=== PATIENT | male | born 1975 | race Caucasian/White ===

== ENCOUNTER 2017-01-05 22:31 | Inpatient (IN) | payer OTHER ==
[2017-01-05] MEDS ORDERED: SODIUM CHLORIDE 0.9% 1,000 ML IV STA (22:59)
[2017-01-05] MEDS ORDERED: MORPHINE SULFATE 4 MG/ML SYRINGE IVP STA (23:39)
[2017-01-05] MEDS ORDERED: ONDANSETRON 4 MG/2 ML VIAL IVP STA (23:39)
[2017-01-05 23:47] LABS: ALT 15 U/L (21-72); AST 15 U/L (17-59); Alkaline Phosphatase 55 U/L (38-126); Amylase 48 U/L (30-110); Anion Gap 8 mmol/L; Blood Urea Nitrogen 20 mg/dL (9-20); Calcium 8.5 mg/dL (8.4-10.2); Carbon Dioxide 24 mmol/L (22-30); Chloride 103 mmol/L (98-107); Glucose 106 mg/dL (74-99); Non-African American GFR(MDRD) >60 (>60 ml/min/1.73 sqM); Potassium 4.5 mmol/L (3.5-5.1); Sodium 135 mmol/L (137-145); Total Bilirubin 0.3 mg/dL (0.2-1.3); Total Protein 6.1 g/dL (6.3-8.2)
[2017-01-05 23:57] LABS: Anisocytosis Moderate; Basophils # (A) 0.1 k/uL (0-0.2); Basophils % (A) 1 %; CH 20.7; CHCM 27.5; Eosinophils # (A) 0.3 k/uL (0-0.7); Eosinophils % (A) 4 %; HCT 27.6 % (39.0-53.0); HDW 3.13; HGB 7.5 gm/dL (13.0-17.5); Hypochromasia Marked; Luc # (Auto) 0.31; Luc % (Auto) 4; Lymphocytes # (A) 0.9 k/uL (1.0-4.8); Lymphocytes % (A) 11 %; MCH 20.5 pg (25.0-35.0); MCHC 27.1 g/dL (31.0-37.0); MCV 75.8 fL (80.0-100.0); Mean Platelet Volume 6.1; Microcytosis Moderate; Monocytes # (A) 0.7 k/uL (0-1.0); Monocytes % (A) 8 %; Neutrophils % (A) 73 %; RBC 3.65 m/uL (4.30-5.90); RDW 20.5 % (11.5-15.5); WBC 8.1 k/uL (3.8-10.6); WBC (Perox) 8.64
[2017-01-05] MEDS ORDERED: HYDROmorphone 1 MG/ML 1 ML SYRINGE IVP STA (23:57)
--- NOTE | 2017-01-06 00:12 | XR ---
EXAM: XR Abdomen, 2 views CLINICAL HISTORY: Abdominal pain. TECHNIQUE: Frontal view of the abdomen and pelvis and upright view of the abdomen. COMPARISON: Radiograph dated 03/18/16. FINDINGS: Visualized lungs: Suspect mild opacity at the left lung base which partially obscures the left hemidiaphragm, possibly atelectasis. Free air: No evidence of free intraperitoneal air. Gastrointestinal tract: Prominent stool in the ascending colon. Mildly prominent air-filled bowel in the upper abdomen, possibly transverse colon although not definitive. Otherwise no significantly dilated bowel loops to suggest small bowel obstruction. Bones/joints: Unremarkable. IMPRESSION: 1. Prominent stool in the ascending colon. Correlate for constipation. 2. Mildly prominent air-filled bowel in the upper abdomen, possibly transverse colon. No significantly dilated small bowel loops to suggest small bowel obstruction. 3. No evidence of free air. 4. Subtle opacity at the left lung base which obscures the diaphragm, possibly atelectasis. Correlate clinically and may obtain CXR to further assess if clinically indicated.
--- NOTE | 2017-01-06 00:49 | ED ---
Abdominal Pain HPI - General Chief Complaint: Abdominal Pain Stated Complaint: All over pain Time Seen by Provider: 01/05/17 22:59 Source: patient, RN notes reviewed Mode of arrival: ambulatory Limitations: no limitations - History of Present Illness Initial Comments: 41-year-old male presents emergency Department chief complaint abdominal pain. Patient states that he has also colitis and states that he has a exacerbations in which she gets severe abdominal pain seemed to spread throughout his body. Patient states that he is also out of his pain medication. Patient states that his GI physician is out of [facility]. Patient has an appointment next month. Patient states he gets once monthly Remicade injections. Patient states that he is nauseated no vomiting denies fever or chills. Patient does have a history of on and off bleeding which is not usual. He denies any large clots at this time. Patient denies any dysuria or hematuria. - Related Data Home Medications Medication Instructions Recorded Confirmed azaTHIOprine [Azathioprine] 100 mg PO BID 11/25/15 01/05/17 inFLIXimab [Remicade] 1 dose IVPB Q28D 12/24/15 01/05/17 Iron Infusion 1 dose IVPB Q7D 01/05/17 01/05/17 [place] (Unknown Dose) 1 tab PO TID PRN 01/05/17 01/05/17 Allergies Allergy/AdvReac Type Severity Reaction Status Date / Time No Known Allergies Allergy Verified 01/05/17 22:55 Review of Systems ROS Statement: Those systems with pertinent positive or pertinent negative responses have been documented in the HPI. ROS Other: All systems not noted in ROS Statement are negative. Past Medical History Additional Past Medical History / Comment(s): colitis, GI bleed History of Any Multi-Drug Resistant Organisms: C-DIFF, MRSA Past Surgical History: No Surgical Hx Reported Past Anesthesia/Blood Transfusion Reactions: No Reported Reaction Past Psychological History: Anxiety Smoking Status: Current some day smoker Past Alcohol Use History: None Reported Past Drug Use History: None Reported - Past Family History Mother Family Medical History: COPD, Diabetes Mellitus, Thyroid Disorder Additional Family Medical History / Comment(s): Schizophrenia Father History Unknown: Yes General Exam Limitations: no limitations General appearance: alert, in no apparent distress Respiratory exam: Present: normal lung sounds bilaterally. Absent: respiratory distress, wheezes, rales, rhonchi, stridor Cardiovascular Exam: Present: regular rate, normal rhythm, normal heart sounds. Absent: systolic murmur, diastolic murmur, rubs, gallop, clicks GI/Abdominal exam: Present: soft, tenderness (Mild to moderate diffuse), normal bowel sounds. Absent: distended, guarding, rebound, rigid Back exam: Absent: CVA tenderness (R), CVA tenderness (L) Skin exam: Present: warm, dry, intact, normal color. Absent: rash Course Vital Signs 01/05/17 01/06/17 22:49 00:00 Temperature 98.8 F Pulse Rate 107 H 87 Respiratory 20 18 Rate Blood Pressure 108/66 117/71 O2 Sat by Pulse 98 98 Oximetry Medical Decision Making - Lab Data Result diagrams: 01/05/17 23:21 01/05/17 23:21 Lab Results 01/05/17 01/05/17 01/06/17 Range/Units 23:21 23:21 00:00 WBC 8.1 (3.8-10.6) k/uL RBC 3.65 L (4.30-5.90) m/uL Hgb 7.5 L (13.0-17.5) gm/dL Hct 27.6 L (39.0-53.0) % MCV 75.8 L (80.0-100.0) fL MCH 20.5 L (25.0-35.0) pg MCHC 27.1 L (31.0-37.0) g/dL RDW 20.5 H (11.5-15.5) % Plt Count 842 H* (150-450) k/uL Neutrophils % 73 % Lymphocytes % 11 % Monocytes % 8 % Eosinophils % 4 % Basophils % 1 % Neutrophils # 6.0 (1.3-7.7) k/uL Lymphocytes # 0.9 L (1.0-4.8) k/uL Monocytes # 0.7 (0-1.0) k/uL Eosinophils # 0.3 (0-0.7) k/uL Basophils # 0.1 (0-0.2) k/uL Hypochromasia Marked Anisocytosis Moderate Microcytosis Moderate Sodium 135 L (137-145) mmol/L Potassium 4.5 (3.5-5.1) mmol/L Chloride 103 (98-107) mmol/L Carbon Dioxide 24 (22-30) mmol/L Anion Gap 8 mmol/L BUN 20 (9-20) mg/dL Creatinine 0.96 (0.66-1.25) mg/dL Est GFR (MDRD) Af Amer >60 (>60 ml/min/1.73 sqM) Est GFR (MDRD) Non-Af >60 (>60 ml/min/1.73 sqM) Glucose 106 H (74-99) mg/dL Calcium 8.5 (8.4-10.2) mg/dL Total Bilirubin 0.3 (0.2-1.3) mg/dL AST 15 L (17-59) U/L ALT 15 L (21-72) U/L Alkaline Phosphatase 55 (38-126) U/L Total Protein 6.1 L (6.3-8.2) g/dL Albumin 3.0 L (3.5-5.0) g/dL Amylase 48 (30-110) U/L Lipase 45 (23-300) U/L Urine Color Light Yellow Urine Appearance Clear (Clear) Urine pH 6.5 (5.0-8.0) Ur Specific [place] 1.010 (1.001-1.035) Urine Protein Negative (Negative) Urine Glucose (UA) Negative (Negative) Urine Ketones Negative (Negative) Urine Blood Negative (Negative) Urine Nitrite Negative (Negative) Urine Bilirubin Negative (Negative) Urine Urobilinogen <2.0 (<2.0) mg/dL Ur Leukocyte Esterase Negative (Negative) Disposition Clinical Impression: Exacerbation of ulcerative colitis, Lower GI bleed, Anemia Disposition: ADMITTED IP TO THIS HOSP Condition: Fair Referrals: Ezequiel Salinas MD [Primary Care Provider] - 1-2 days
[2017-01-06 00:53] LABS: Appearance,Urine Clear (Clear); Bilirubin,Urine Negative (Negative); Glucose,Urine (UA) Negative (Negative); Ketones,Urine Negative (Negative); Leukocyte Esterase,Urine Negative (Negative); Nitrite,Urine Negative (Negative); PH, Urine 6.5 (5.0-8.0); Protein,Urine Negative (Negative); UA Billing (MACRO vs. MICRO) CHEM; Urobilinogen,Urine <2.0 mg/dL (<2.0)
[2017-01-06] MEDS ORDERED: HYDROmorphone 1 MG/ML 1 ML SYRINGE IVP STA (00:53)
[2017-01-06] MEDS ORDERED: ONDANSETRON 4 MG/2 ML VIAL IVP PRN (00:57)
[2017-01-06] MEDS ORDERED: ACETAMINOPHEN TAB 325 MG TAB PO PRN (00:57)
[2017-01-06] MEDS ORDERED: NALOXONE 0.4 MG/ML 1 ML VIAL IV PRN (00:57)
[2017-01-06] MEDS ORDERED: methylPREDNISolone SOD SUCCI 125 MG/2 ML VIAL IV STA (00:59)
[2017-01-06] MEDS: SODIUM CHLORIDE 0.9% 1,000 ML IV SCH ×3 (01:08→21:10)
[2017-01-06] MEDS: HYDROmorphone 1 MG/ML 1 ML SYRINGE IV PRN ×5 (04:06→21:10)
[2017-01-06] MEDS ORDERED: ENOXAPARIN 40 MG/0.4 ML SYRINGE SQ SCH (09:00)
[2017-01-06] MEDS ORDERED: PANTOPRAZOLE 40 MG/10 ML VIAL IV SCH (09:00)
[2017-01-06 09:33] LABS: Anion Gap 9 mmol/L; Blood Urea Nitrogen 14 mg/dL (9-20); Calcium 9.3 mg/dL (8.4-10.2); Carbon Dioxide 24 mmol/L (22-30); Chloride 106 mmol/L (98-107); Glucose 127 mg/dL (74-99); Non-African American GFR(MDRD) >60 (>60 ml/min/1.73 sqM); Potassium 5.2 mmol/L (3.5-5.1); Sodium 139 mmol/L (137-145)
[2017-01-06] MEDS: azaTHIOprine 50 MG TAB PO SCH ×2 (09:46→21:10)
[2017-01-06] MEDS: methylPREDNISolone SOD SUCCI 125 MG/2 ML VIAL IV SCH ×3 (13:07→23:01)
--- NOTE | 2017-01-06 18:47 | PN ---
DATE OF SERVICE: January 06, 2017 REQUESTING PHYSICIAN: Dr. Gomez. REASON FOR CONSULTATION: Exacerbation of ulcerative colitis. HISTORY OF PRESENT ILLNESS: The patient is a 41-year-old white male known to me from his previous hospitalizations. He was diagnosed with ulcerative colitis approximately 9 years ago and follows with Dr. Larson. He was maintained on Remicade for several years and remained in clinical remission; however, in November 2015, he was admitted to the hospital with severe flare-up, was treated with a prolonged course of IV steroids and subsequently followed by Dr. Larson. At one point, he was up at [facility] for refractory ulcerative colitis on biologics. He was seen at [facility] over 6 months ago, at which time his Remicade dose was increased to 10 mg/kg body weight every 4 weeks and Imuran dose was increased 100 mg twice daily, which he has been taking regularly. He was doing reasonably well and has been off the prednisone for about 6 months or so. In the meantime, for the last 2 weeks started having severe abdominal pain associated with diarrhea, bleeding, bowel movements anywhere from 50 to 20 a day; all loose, watery with blood and mucus in the stool. Came into the emergency room and was noted to have hemoglobin of 7.5 g/dL. He denies any fever, chills, night sweats. Reports no nausea or vomiting. PAST MEDICAL HISTORY: Significant for ulcerative colitis diagnosed 10 years ago. Medications at home include: 1. [place]. 2. Remicade 10 mg/kg body weight every 4 weeks. 3. Azathioprine 500 mg twice daily. ALLERGIES: None. SOCIAL HISTORY: No smoking or alcohol use. FAMILY HISTORY: Unremarkable. REVIEW OF SYSTEMS: CARDIOPULMONARY: No chest pain, shortness of breath. GENITOURINARY: No dysuria or hematuria. MUSCULOSKELETAL: Unremarkable. SKIN: Unremarkable. ENDOCRINE: Unremarkable. PSYCHIATRIC: Unremarkable. NEUROLOGY: Unremarkable. ENT/VISION: Unremarkable. CONSTITUTIONAL: No recent ( ). No fever, chills, rigors. On physical examination, blood pressure 109/63, pulse rate 78 and temperature 97. HEENT: Unremarkable. Conjunctivae pink. Sclerae anicteric. Oral cavity, no lesions. NECK: No JVD or lymph node enlargement. CHEST: Clear to auscultation. HEART: Regular rate and rhythm. ABDOMEN: Soft. Bowel wounds are positive. No organomegaly. EXTREMITIES: No pedal edema. SKIN: No rashes. NEURO: Alert and oriented x3. No focal deficits. Labs done at the time of admission to hospital: WBC 8.1, hemoglobin 7.5, platelets 872. Basic metabolic panel is within normal limits. Stool for occult blood is positive. IMPRESSION: This is a patient with long history of ulcerative colitis who has been having severe symptoms for the last 3 years and has been on and off steroid dependent. Presently on Remicade 10 mg/kg body weight every 4 weeks and azathioprine 100 mg twice daily, despite which presents to the hospital with flare-up of ulcerative colitis. Presently having bowel movements anywhere from 15 to 20 a day which are loose, watery in consistency and blood in the stool, all suggestive of exacerbation. Of course, because of his prior history of Clostridium difficile colitis, possibility of superimposed Clostridium difficile colitis also needs to be excluded RECOMMENDATIONS: 1. Obtain C. difficile toxin. 2. Obtain stool for cultures. 3. Start him on IV Solu-Medrol 60 mg every 6 hours. 4. Start him on a clear liquid diet and will continue to follow the patient closely during his hospital stay. Also have requested for C-reactive protein and sed rate tomorrow morning. Thank you for this consultation.
--- NOTE | 2017-01-06 19:26 | HP ---
DATE OF ADMISSION: 01/06/2017 PRESENTING COMPLAINT: Abdominal pain. HISTORY OF PRESENTING COMPLAINT: This is a pleasant 41-year-old patient of Dr. Salinas. Patient was diagnosed with ( ) over [address] Amanda Cassidy. The patient was then seen by Dr. Reyna ). Patient was then referred to [facility] from where he has been getting Remicade. Patient stated that he presents with increasing abdominal pain and multiple stools with some blood in it. Feels weak, tired, rundown. The patient has not been employed anymore. Denies any fever. REVIEW OF SYSTEMS: CONSTITUTIONAL: Weak, tired. HEENT: None. RESPIRATORY: None. CARDIOVASCULAR: None. GASTROINTESTINAL: As above. GENITOURINARY: None. MUSCULOSKELETAL: Aches and pains in the joints. Dermatological: None. HEMATOLOGIC: None. LYMPHATICS: None. PSYCHIATRY: None. NEUROLOGICAL: Patient actually was walking up and down the hallway when I came to see the patient. PAST MEDICAL HISTORY: Ulcerative colitis. PAST SURGICAL HISTORY: None. ALLERGIES: None. FAMILY HISTORY: Reviewed, noncontributory to presentation. SOCIAL HISTORY: Does not smoke or drink alcohol. Lives with girlfriend. Did do [place] previously. HOME MEDICATIONS: 1. [place] t.i.d. p.r.n. 2. Remicade IV piggyback every 28 days. 3. ( ) 100 mg p.o. b.i.d. ALLERGIES: None. On examination, temperature 97.2, pulse 93, respiration 18, blood pressure 194/62, pulse ox 98% on room air. GENERAL APPEARANCE: Lying in bed. Appears rather comfortable. EYES: Pupils equal. Conjunctivae normal. HEENT: Oral cavity normal. NECK: JVD not raised. Mass not palpable. RESPIRATORY: Effort normal. Lungs are clear. CARDIOVASCULAR: First and second sounds normal. No edema. ABDOMEN: Soft, minimal tenderness. No guarding or rigidity. Liver and spleen not palpable. LYMPHATIC: No lymph nodes palpable in neck and axillae. PSYCHIATRY: Alert and oriented x3. Mood and affect normal. NEUROLOGICAL: Pupils equal. Cranial nerves grossly intact. Power and sensation intact. INVESTIGATIONS: White count 8.1, hemoglobin 10.5, platelets 842. Potassium 4.5. BUN and creatinine are normal. Abdominal x-ray nonspecific. ASSESSMENT: 1. Acute exacerbation of chronic ulcerative colitis in a patient who is on Remicade with increasing frequency in stool, increasing pain. 2. Reactive thrombocytosis. 3. Macrocytic anemia from chronic blood loss and folliculitis. 4. Mild hyponatremia. 5. Hypoalbuminemia probably an acute phase reactant probably mild protein calorie malnutrition. PLAN: Patient is put on IV Solu-Medrol. We will use Venodyne boots for DVT prophylaxis. IV fluids. Dr. Amanda Cassidy was consulted. IV pain medications for now. Diet as per Dr. Amanda Cassidy.
[2017-01-07] MEDS: HYDROmorphone 1 MG/ML 1 ML SYRINGE IV PRN ×7 (00:35→22:39)
[2017-01-07] MEDS: methylPREDNISolone SOD SUCCI 125 MG/2 ML VIAL IV SCH ×2 (06:12→11:33)
[2017-01-07] MEDS: SODIUM CHLORIDE 0.9% 1,000 ML IV SCH ×2 (07:21→17:44)
[2017-01-07] MEDS: azaTHIOprine 50 MG TAB PO SCH ×2 (07:21→20:43)
[2017-01-07 12:08] LABS: Anion Gap 11 mmol/L; Blood Urea Nitrogen 19 mg/dL (9-20); C Reactive Protein 20.2 mg/L (<10.0); Calcium 9.1 mg/dL (8.4-10.2); Carbon Dioxide 21 mmol/L (22-30); Chloride 110 mmol/L (98-107); Glucose 184 mg/dL (74-99); Non-African American GFR(MDRD) >60 (>60 ml/min/1.73 sqM); Potassium 4.9 mmol/L (3.5-5.1); Sodium 142 mmol/L (137-145)
[2017-01-07] MEDS: methylPREDNISolone SOD SUCCI 40 MG/ML 1 ML VIAL IV SCH ×2 (15:46→23:14)
[2017-01-07] MEDS: MELATONIN 5 MG TABLET PO SCH (20:43)
[2017-01-08] MEDS: HYDROmorphone 1 MG/ML 1 ML SYRINGE IV PRN ×2 (03:41→07:45)
[2017-01-08] MEDS: SODIUM CHLORIDE 0.9% 1,000 ML IV SCH ×3 (05:46→23:48)
[2017-01-08] MEDS: methylPREDNISolone SOD SUCCI 40 MG/ML 1 ML VIAL IV SCH ×3 (07:46→23:49)
[2017-01-08] MEDS: azaTHIOprine 50 MG TAB PO SCH ×2 (07:46→20:37)
[2017-01-08 08:33] LABS: Anisocytosis Moderate; Basophils % (A) 0 %; CH 20.7; Eosinophils % (A) 0 %; HCT 27.7 % (39.0-53.0); HDW 2.97; HGB 7.3 gm/dL (13.0-17.5); Hypochromasia Marked; Luc # (Auto) 0.08; Luc % (Auto) 2; Lymphocytes # (A) 0.3 k/uL (1.0-4.8); Lymphocytes % (A) 6 %; MCH 21.1 pg (25.0-35.0); MCHC 26.4 g/dL (31.0-37.0); Mean Platelet Volume 6.6; Microcytosis Slight; Monocytes # (A) 0.2 k/uL (0-1.0); Monocytes % (A) 4 %; Neutrophils # (A) 4.1 k/uL (1.3-7.7); Neutrophils % (A) 88 %; RBC 3.47 m/uL (4.30-5.90); RDW 20.7 % (11.5-15.5); WBC 4.7 k/uL (3.8-10.6); WBC (Perox) 4.91
[2017-01-08 09:07] LABS: Anion Gap 10 mmol/L; Blood Urea Nitrogen 21 mg/dL (9-20); Carbon Dioxide 25 mmol/L (22-30); Chloride 108 mmol/L (98-107); Glucose 118 mg/dL (74-99); Non-African American GFR(MDRD) >60 (>60 ml/min/1.73 sqM); Potassium 4.3 mmol/L (3.5-5.1); Sodium 143 mmol/L (137-145)
--- NOTE | 2017-01-08 11:29 | PN ---
DATE OF SERVICE: 01/07/2017 PRESENTING COMPLAINT: Ulcerative colitis flare-up. INTERVAL HISTORY: This is a patient doing much better. Did tolerate liquid diet, actually wants food. Up and about in the hallway. Has only made 1 or 2 bowel movements, rarely. Doing much better, cheerful, sitting in the next patient's bed chair and talking to him. REVIEW OF SYSTEMS: Done for constitutional, cardiovascular, GI, pulmonary; relevant findings as above. Current medications are reviewed. Current medications are reviewed, that include Solu-Medrol, IV fluids. On examination, temperature 96.7, pulse 86, respirations 20, blood pressure 108/60, pulse ox 97% on room air. GENERAL APPEARANCE: Sitting up, comfortable. EYES: Pupils equal. Conjunctivae normal. NECK: JVD not raised. Mass not palpable. RESPIRATORY: Effort normal. Lungs are clear. CARDIOVASCULAR: First and second sounds normal. No edema. ABDOMEN: Soft, nontender. Liver and spleen not palpable. PSYCHIATRY: Alert and oriented x3. Mood and affect normal. INVESTIGATIONS: ( ) 48, potassium 4.9. BUN and creatinine normal. C. difficile was negative. ASSESSMENT: 1. Acute exacerbation of ulcerative colitis, patient is on Remicade, doing much better. Stool frequency has gone down to about 2 to 3 times in the last 24 hours. No blood reported. 2. Reactive thrombocytosis. 3. Macrocytic anemia from chronic blood loss. 4. Mild hyponatremia. 5. Hypoalbuminemia, probably an acute phase reactant and mild protein calorie malnutrition. PLAN: Will cut back on IV Solu-Medrol to 40 every 12. Diet will be advanced to soft, bland. This patient is doing relatively well. Ambulate.
[2017-01-08] MEDS: HYDROcodone/APAP 5-325MG 1 EACH TAB PO PRN ×2 (12:36→19:31)
--- NOTE | 2017-01-08 17:24 | PN ---
DATE OF SERVICE: 01/08/2017 The patient a 41 -year-old white male admitted to the hospital with exacerbation of ulcerative colitis. He presented with abdominal pain, severe diarrhea. His bowel movements are between ( ) a day with blood and mucus in the stool. He was started on IV Solu-Medrol 60 mg q.6 hours 2 days ago and yesterday was decreased to 40 mg q.8 hours. He is doing better. Still has some bowel movements. Blood has decreased but not resolved. Abdominal pain has improved. On physical examination, appears comfortable in no apparent distress. Vitals as are stable. Blood pressure is 108/60, pulse rate 60 temperature 98.7. HEENT: Unremarkable. Conjunctivae pink. Sclerae anicteric. Oral cavity, no lesions. NECK: No JVD or lymph node enlargement. Chest was clear to auscultation. HEART: Regular rate and rhythm. ABDOMEN: Soft. Bowel are positive. No organomegaly. EXTREMITIES: No pedal edema. SKIN: No rashes. NEURO: He is alert and oriented x3. No focal deficits. Labs from today, WBC 4.7, hemoglobin 7.3, platelets 758. Basic metabolic panel is within normal limits. CRP and sedimentation rate are elevated at 20 and 48 respectively. C. difficile toxin was negative. IMPRESSION: Exacerbation of ulcerative colitis and the patient has been on and off steroids for the last two years. He has been off for the last 6 months and presently on IV Solu-Medrol 40 mg q.6 hours for exacerbation of ulcerative colitis. He is being seen at Gastroenterology at [facility] and presently is on Imuran 100 mg twice daily as well as Remicade infusion at 10 mg/kg body weight every 4 weeks. RECOMMENDATIONS: 1. Continue with IV Solu-Medrol 40 mg q8 today and tomorrow if he is better, we will change it to oral prednisone 40 mg daily to be tapered by 5 mg a week on an outpatient basis. In the meantime, he will continue with Imuran 100 mg twice daily. 2. Continue with Remicade iron infusions every 4 weeks as schedule. 3. He was advised to follow up with his GI at [facility] in 1 to 2 weeks following discharge from the hospital.
[2017-01-08] MEDS: MELATONIN 5 MG TABLET PO SCH (20:37)
[2017-01-09] MEDS: HYDROcodone/APAP 5-325MG 1 EACH TAB PO PRN ×2 (01:33→07:48)
[2017-01-09 07:21] VITALS: BP 116/69; PULSE 57; RESP 14; TEMP 97.2
[2017-01-09 07:47] LABS: Anisocytosis Moderate; Basophils % (A) 0 %; CH 20.9; CHCM 26.8; Eosinophils % (A) 0 %; HDW 3.03; HGB 7.2 gm/dL (13.0-17.5); Hypochromasia Marked; Luc # (Auto) 0.09; Luc % (Auto) 2; Lymphocytes # (A) 0.3 k/uL (1.0-4.8); Lymphocytes % (A) 8 %; MCH 20.9 pg (25.0-35.0); MCHC 26.7 g/dL (31.0-37.0); MCV 78.2 fL (80.0-100.0); Mean Platelet Volume 5.9; Microcytosis Moderate; Monocytes # (A) 0.2 k/uL (0-1.0); Monocytes % (A) 6 %; Neutrophils # (A) 3.1 k/uL (1.3-7.7); Neutrophils % (A) 83 %; RBC 3.45 m/uL (4.30-5.90); RDW 20.7 % (11.5-15.5); WBC 3.7 k/uL (3.8-10.6)
[2017-01-09] MEDS: methylPREDNISolone SOD SUCCI 40 MG/ML 1 ML VIAL IV SCH (07:48)
[2017-01-09] MEDS: azaTHIOprine 50 MG TAB PO SCH (07:48)
[2017-01-09] MEDS: SODIUM CHLORIDE 0.9% 1,000 ML IV SCH (07:49)
[2017-01-09 08:15] LABS: Manual Review Performed
[2017-01-09 08:16] LABS: Ovalocytes Present
--- NOTE | 2017-01-09 09:36 | DS ---
DATE OF ADMISSION: 01/06/2017 DATE OF DISCHARGE: 01/08/2017 FINAL DIAGNOSES: 1. Acute exacerbation of chronic ulcerative colitis in a patient who has been on Remicade. 2. Reactive thrombocytosis. 3. Macrocytic anemia from chronic blood loss. 4. Mild hyponatremia. 5. Hypoalbuminemia probably an acute phase reactant element of protein calorie malnutrition. HOSPITAL COURSE: This is a patient who has been diagnosed with ulcerative colitis about [address] Larson. Has been on Remicade for several years, made in clinical remission. Now is admitted with a flare-up with multiple bowel movements, some blood. Put on a dose of steroids. By the time of discharge doing much better. Up and about, tolerating a diet, up in the hallway. Afebrile, C. diff was negative. In fact, patient is down to only 1 or 2 bowel movements a day. Hemoglobin is stable at 7.3 which was 7.5 when he came in. On examination; Abdomen soft, nontender. Lungs are clear. CONSULTATION: Dr. Amanda Cassidy. DISCHARGE MEDICATIONS: 1. Azathioprine 100 mg p.o. b.i.d. 2. Remicade IV piggyback every 28 days. 3. Iron infusion. 4. Celexa 10 mg a day. 5. [place] 5 one tablet t.i.d. p.r.n. 6. Melatonin 5 mg p.o. q.h.s. 7. Prednisone 60 mg q. daily, continue until followup with GI specialist Dr. Cassidy or his own specialist in [place]. DIET: Soft, bland. Follow up with Dr. Salinas in 1 week; follow up with Dr. Amanda Cassidy as above. Follow up with GI specialist in 1 week.
--- NOTE | 2017-01-09 10:19 | P.PN ---
Subjective Principal diagnosis: Exacerbation ulcerative colitis 41-year-old male with a history of ulcerative colitis admitted with exacerbation ; Remicade anemia and therapy. Scheduled a follow-up [facility] on Sunday. Requesting IV Dilaudid this morning for abdominal pain. 4 bowel movements last night blood tinged. Hemoglobin relatively unchanged from yesterday 7.2. Hemoglobin yesterday 7.3. Afebrile. Objective - Vital Signs Vital signs: Vital Signs Temp 97.2 F L 01/09/17 07:00 Pulse 57 L 01/09/17 07:00 Resp 14 01/09/17 07:00 BP 116/69 01/09/17 07:00 Pulse Ox 100 01/09/17 07:00 Intake & Output 01/08/17 01/09/17 01/09/17 18:59 06:59 18:59 Intake Total 1140 Balance 1140 Intake: Oral 1140 Other: Voiding Method Toilet Toilet Toilet # Voids 2 2 # Bowel Movements 2 - Exam General appearance: The patient is alert, oriented, in no acute distress. HET: Head is normocephalic and atraumatic. Pupils are equal and reactive. Oropharynx is clear without lesions. Neck: Supple without lymphadenopathy. Trachea midline. Heart: S1 S2. Regular rate and rhythm. Lungs: No crackles or wheezes are heard. Abdomen: Soft, very mild diffuse tenderness across mid to lower abdomen, nondistended with bowel sounds. No peritoneal signs. No palpable organomegaly or masses. Extremities: Normal skin color and turgor. No cyanosis, rash, ulceration, clubbing, or edema. Radial and pedal pulses are 2/4 bilaterally. Neurological: No focal deficits. Strength and sensation are grossly intact. - Labs CBC & Chem 7: 01/09/17 06:59 01/08/17 07:48 Labs: Abnormal Lab Results - Last 24 Hours (Table) 01/09/17 Range/Units 06:59 WBC 3.7 L (3.8-10.6) k/uL RBC 3.45 L (4.30-5.90) m/uL Hgb 7.2 L (13.0-17.5) gm/dL Hct 27.0 L (39.0-53.0) % MCV 78.2 L (80.0-100.0) fL MCH 20.9 L (25.0-35.0) pg MCHC 26.7 L (31.0-37.0) g/dL RDW 20.7 H (11.5-15.5) % Plt Count 634 H (150-450) k/uL Lymphocytes # 0.3 L (1.0-4.8) k/uL Assessment and Plan Plan: Impression: 1. Exacerbation of ulcerative colitis. Follow closely by the [facility] presently on Imuran 100 mg twice daily as well as Remicade every 4 weeks. 2. Acute blood loss anemia superimposed on chronic disease anemia. Recommendations: 1. Continue with some genetic supportive treatment. 2. Prednisone 40 mg daily taper by 5 mg a week on an outpatient basis. Follow- up at [facility] on Sunday as advised. Continue Imuran 100 mg twice daily. Assessment and plan of care discussed with Dr. Cassidy.
[2017-01-10] MEDS ORDERED: predniSONE 20 MG TAB PO SCH (09:00)
== END 2017-01-09 13:10 | disposition home or self-care (01) | DRG 386 ==
LOC: EC 22:31 → 4MS4W 01-06 01:17
PROVIDERS: ADMIT Hospitalist; ATTEND Hospitalist
DX: K51.911 Ulcerative colitis, unspecified with rectal bleeding (principal); E87.1 Hypo-osmolality and hyponatremia; E44.1 Mild protein-calorie malnutrition; D62 Acute posthemorrhagic anemia; D50.0 Iron deficiency anemia secondary to blood loss (chronic); D53.9 Nutritional anemia, unspecified; D75.89 Other specified diseases of blood and blood-forming organs; Z86.19 Personal history of other infectious and parasitic diseases; Z79.52 Long term (current) use of systemic steroids; Z79.899 Other long term (current) drug therapy
CPT/HCPCS: 36415; 74000; 80048; 80053; 81003; 82150; 82272; 83690; 85025; 85652; 86140; 86850; 86900; 86901; 87324; 96361; 96374; 96375; 96376; 99285

== ENCOUNTER → 2017-01-26 | Outpatient (CLI) | payer OTHER ==
[2017-01-26 16:10] LABS: Anisocytosis Moderate; Aty Lym Flag Slight; CH 21.9; CHCM 28.3; HCT 31.8 % (39.0-53.0); HDW 3.17; Hypochromasia Marked; MCHC 29.6 g/dL (31.0-37.0); MCV 77.8 fL (80.0-100.0); Mean Platelet Volume 7.5; Microcytosis Moderate; RBC 4.09 m/uL (4.30-5.90); RDW 22.7 % (11.5-15.5); WBC 5.4 k/uL (3.8-10.6)
[2017-01-26 16:35] LABS: HGB 9.4 gm/dL (13.0-17.5)
[2017-01-26 16:57] LABS: C Reactive Protein 14.9 mg/L (<10.0)
[2017-01-26 17:44] LABS: Add Differential Manual Differential
[2017-01-26 17:46] LABS: Manual Review Performed; Nucleated Red Blood Cells 0 /100 WBC (0-0); Ovalocytes Present; Polychromasia Present; Total Cells Counted 100
[2017-01-26 17:47] LABS: Large Platelets Present; Spherocytes Present; Target Cells Present
[2017-01-26 18:04] LABS: Erythrocyte Sedimentation Rate 28 mm/hr (0-15)
== END | disposition home or self-care (01) ==
LOC: LABWHC1 15:52
PROVIDERS: ATTEND Internal Medicine Gastroenterology
DX: D50.9 Iron deficiency anemia, unspecified (principal)
CPT/HCPCS: 36415; 82728; 83540; 83550; 85025; 85652; 86140

== ENCOUNTER 2017-03-25 00:24 | Observation (INO) | payer OTHER ==
[2017-03-25] MEDS ORDERED: SODIUM CHLORIDE 0.9% 1,000 ML IV ONE (00:32)
[2017-03-25] MEDS ORDERED: LORazepam 2 MG/ML SYRINGE IM STA ×2 (00:58→03:23)
[2017-03-25] MEDS ORDERED: HALOPERIDOL LACTATE 5 MG/ML 1 ML VIAL IM STA (00:58)
--- NOTE | 2017-03-25 01:06 | ED ---
General Adult HPI - General Source: patient, EMS, RN notes reviewed Mode of arrival: EMS Limitations: no limitations <Eric Butterfield - Last Filed: 03/25/17 03:31> <Denver Rodriguez - Last Filed: 03/27/17 06:54> - General Chief complaint: Alcohol Stated complaint: ETOH Time Seen by Provider: 03/25/17 00:26 - History of Present Illness Initial comments: This a 42-year-old male presents emergency department via EMS for altered mental status. Patient was found and no street. Intoxicated. He was waving empty bottle of Ambien and waving a later. Patient reportedly did not take the Ambien he states he probably lost it. Patient information is limited this time as he appears to be intoxicated and either alcohol or drugs. Patient denies any illicit drug use. He states he only had 2 drinks tonight. Patient denies a suicidal homicidal thoughts. Patient states that "I was making Magic and changing the universe". Patient is making bizarre and irrational statements. ( Eric Butterfield) - Related Data Home Medications Medication Instructions Recorded Confirmed azaTHIOprine [Azathioprine] 100 mg PO BID 11/25/15 03/25/17 inFLIXimab [Remicade] 1 dose IVPB Q28D 12/24/15 01/05/17 Iron Infusion 1 dose IVPB Q7D 01/05/17 01/05/17 Citalopram Hydrobromide [CeleXA] 10 mg PO DAILY 01/08/17 03/25/17 HYDROcodone/APAP 5-325MG [[place] 1 tab PO TID PRN 01/08/17 03/25/17 5-325] Ondansetron Odt [Zofran ODT] 4 mg PO Q8HR PRN 03/25/17 03/25/17 Tofacitinib Citrate [Xeljanz] 10 mg PO BID 03/25/17 03/25/17 predniSONE 60 mg PO DAILY 03/25/17 03/25/17 Allergies Allergy/AdvReac Type Severity Reaction Status Date / Time No Known Allergies Allergy Verified 03/25/17 10:25 Review of Systems ROS Other: All systems not noted in ROS Statement are negative. <Eric Butterfield - Last Filed: 03/25/17 03:31> ROS Other: All systems not noted in ROS Statement are negative. <Denver Rodriguez - Last Filed: 03/27/17 06:54> ROS Statement: Those systems with pertinent positive or pertinent negative responses have been documented in the HPI. Past Medical History Past Medical History: No Reported History Additional Past Medical History / Comment(s): colitis, GI bleed History of Any Multi-Drug Resistant Organisms: C-DIFF, MRSA Date of last positivie culture/infection: 2015 MDRO Source:: leg wound Past Surgical History: No Surgical Hx Reported Past Anesthesia/Blood Transfusion Reactions: No Reported Reaction Past Psychological History: Anxiety Smoking Status: Never smoker Past Alcohol Use History: None Reported Past Drug Use History: None Reported - Past Family History Mother Family Medical History: COPD, Diabetes Mellitus, Thyroid Disorder Additional Family Medical History / Comment(s): Schizophrenia Father History Unknown: Yes <Eric Butterfield - Last Filed: 03/25/17 03:31> General Exam Limitations: altered mental status General appearance: alert, in no apparent distress Head exam: Present: atraumatic, normocephalic, normal inspection Eye exam: Present: normal appearance, PERRL, EOMI. Absent: scleral icterus, conjunctival injection, periorbital swelling ENT exam: Present: normal exam, normal oropharynx, mucous membranes moist Neck exam: Present: normal inspection. Absent: tenderness, meningismus, lymphadenopathy Respiratory exam: Present: normal lung sounds bilaterally. Absent: respiratory distress, wheezes, rales, rhonchi, stridor Cardiovascular Exam: Present: normal rhythm, tachycardia, normal heart sounds. Absent: systolic murmur, diastolic murmur, rubs, gallop, clicks GI/Abdominal exam: Present: soft, normal bowel sounds. Absent: distended, tenderness, guarding, rebound, rigid Neurological exam: Present: alert, CN II-XII intact, reflexes normal. Absent: oriented X3, motor sensory deficit Skin exam: Present: warm, dry, intact, normal color. Absent: rash <Eric Butterfield - Last Filed: 03/25/17 03:31> EKG Findings - EKG Comments: EKG Findings:: EKG performed at 2:45 sinus tachycardia with a rate of 113 HI interval 124 QRS duration 92 QT/QTC 348/477 <Eric Butterfield - Last Filed: 03/25/17 03:31> Procedures - Restraint - Face to Face Restraint Occurrence 1 Patient's Immediate Situation: Endangers staff safety Patient's Reaction to the Intervention: Uncooperative Patient's Medical & Behavioral Condition: Awake, Alert Need to Continue or Terminate Restraint or Seclusion: Continue Face to Face Eval of Restraint Date: 03/25/17 Face to Face Eval of Restraint Time: 01:19 <Eric Butterfield - Last Filed: 03/25/17 03:31> Medical Decision Making - Lab Data Result diagrams: 03/25/17 02:09 03/25/17 02:09 <Eric Butterfield - Last Filed: 03/25/17 03:31> - Lab Data Result diagrams: 03/25/17 02:09 03/25/17 02:09 <Denver Rodriguez - Last Filed: 03/27/17 06:54> - Medical Decision Making I saw this patient in conjunction with the physician oncology physician assistant. I performed independent history and physical exam. Agree with case management. (Denver Rodriguez) - Lab Data Lab Results 03/25/17 03/25/17 03/25/17 Range/Units 02:09 02:09 02:09 WBC 10.1 (3.8-10.6) k/uL RBC 4.29 L (4.30-5.90) m/uL Hgb 10.0 L (13.0-17.5) gm/dL Hct 34.8 L (39.0-53.0) % MCV 80.9 (80.0-100.0) fL MCH 23.2 L (25.0-35.0) pg MCHC 28.7 L (31.0-37.0) g/dL RDW 21.1 H (11.5-15.5) % Plt Count 430 (150-450) k/uL Neutrophils % 90 % Lymphocytes % 4 % Monocytes % 4 % Eosinophils % 1 % Basophils % 0 % Neutrophils # 9.1 H (1.3-7.7) k/uL Lymphocytes # 0.4 L (1.0-4.8) k/uL Monocytes # 0.4 (0-1.0) k/uL Eosinophils # 0.1 (0-0.7) k/uL Basophils # 0.0 (0-0.2) k/uL Hypochromasia Marked Anisocytosis Moderate Microcytosis Slight Sodium 144 (137-145) mmol/L Potassium 3.8 (3.5-5.1) mmol/L Chloride 114 H (98-107) mmol/L Carbon Dioxide 18 L (22-30) mmol/L Anion Gap 12 mmol/L BUN 23 H (9-20) mg/dL Creatinine 0.80 (0.66-1.25) mg/dL Est GFR (MDRD) Af Amer >60 (>60 ml/min/1.73 sqM) Est GFR (MDRD) Non-Af >60 (>60 ml/min/1.73 sqM) Glucose 102 H (74-99) mg/dL POC Glucose (mg/dL) (75-99) mg/dL POC Glu Absorption And Adsorption Engineer ID Calcium 9.1 (8.4-10.2) mg/dL Total Bilirubin 0.2 (0.2-1.3) mg/dL AST 15 L (17-59) U/L ALT 29 (21-72) U/L Alkaline Phosphatase 57 (38-126) U/L Total Protein 6.3 (6.3-8.2) g/dL Albumin 3.7 (3.5-5.0) g/dL Urine Color Yellow Urine Appearance Clear (Clear) Urine pH 5.5 (5.0-8.0) Ur Specific [place] 1.008 (1.001-1.035) Urine Protein Negative (Negative) Urine Glucose (UA) Negative (Negative) Urine Ketones Negative (Negative) Urine Blood Negative (Negative) Urine Nitrite Negative (Negative) Urine Bilirubin Negative (Negative) Urine Urobilinogen <2.0 (<2.0) mg/dL Ur Leukocyte Esterase Negative (Negative) Urine Opiates Screen Not Detected (NotDetected) Ur Oxycodone Screen Not Detected (NotDetected) Urine Methadone Screen Not Detected (NotDetected) Ur Propoxyphene Screen Not Detected (NotDetected) Ur Barbiturates Screen Not Detected (NotDetected) U Tricyclic Antidepress Not Detected (NotDetected) Ur Phencyclidine Scrn Not Detected (NotDetected) Ur Amphetamines Screen Not Detected (NotDetected) U Methamphetamines Scrn Not Detected (NotDetected) U Benzodiazepines Scrn Not Detected (NotDetected) Urine Cocaine Screen Not Detected (NotDetected) U Marijuana (THC) Screen Not Detected (NotDetected) Serum Alcohol 90 mg/dL 03/25/17 Range/Units 02:48 WBC (3.8-10.6) k/uL RBC (4.30-5.90) m/uL Hgb (13.0-17.5) gm/dL Hct (39.0-53.0) % MCV (80.0-100.0) fL MCH (25.0-35.0) pg MCHC (31.0-37.0) g/dL RDW (11.5-15.5) % Plt Count (150-450) k/uL Neutrophils % % Lymphocytes % % Monocytes % % Eosinophils % % Basophils % % Neutrophils # (1.3-7.7) k/uL Lymphocytes # (1.0-4.8) k/uL Monocytes # (0-1.0) k/uL Eosinophils # (0-0.7) k/uL Basophils # (0-0.2) k/uL Hypochromasia Anisocytosis Microcytosis Sodium (137-145) mmol/L Potassium (3.5-5.1) mmol/L Chloride (98-107) mmol/L Carbon Dioxide (22-30) mmol/L Anion Gap mmol/L BUN (9-20) mg/dL Creatinine (0.66-1.25) mg/dL Est GFR (MDRD) Af Amer (>60 ml/min/1.73 sqM) Est GFR (MDRD) Non-Af (>60 ml/min/1.73 sqM) Glucose (74-99) mg/dL POC Glucose (mg/dL) 103 H (75-99) mg/dL POC Glu Absorption And Adsorption Engineer ID Ankur Bowman Calcium (8.4-10.2) mg/dL Total Bilirubin (0.2-1.3) mg/dL AST (17-59) U/L ALT (21-72) U/L Alkaline Phosphatase (38-126) U/L Total Protein (6.3-8.2) g/dL Albumin (3.5-5.0) g/dL Urine Color Urine Appearance (Clear) Urine pH (5.0-8.0) Ur Specific [place] (1.001-1.035) Urine Protein (Negative) Urine Glucose (UA) (Negative) Urine Ketones (Negative) Urine Blood (Negative) Urine Nitrite (Negative) Urine Bilirubin (Negative) Urine Urobilinogen (<2.0) mg/dL Ur Leukocyte Esterase (Negative) Urine Opiates Screen (NotDetected) Ur Oxycodone Screen (NotDetected) Urine Methadone Screen (NotDetected) Ur Propoxyphene Screen (NotDetected) Ur Barbiturates Screen (NotDetected) U Tricyclic Antidepress (NotDetected) Ur Phencyclidine Scrn (NotDetected) Ur Amphetamines Screen (NotDetected) U Methamphetamines Scrn (NotDetected) U Benzodiazepines Scrn (NotDetected) Urine Cocaine Screen (NotDetected) U Marijuana (THC) Screen (NotDetected) Serum Alcohol mg/dL Disposition <Eric Butterfield - Last Filed: 03/25/17 03:31> <Denver Rodriguez - Last Filed: 03/27/17 06:54> Clinical Impression: Acute delirium Disposition: ADMITTED IP TO THIS HOSP Condition: Stable
[2017-03-25 02:26] LABS: Anisocytosis Moderate; Basophils % (A) 0 %; CH 23.9; CHCM 29.7; Eosinophils # (A) 0.1 k/uL (0-0.7); Eosinophils % (A) 1 %; HCT 34.8 % (39.0-53.0); HDW 3.03; Hypochromasia Marked; Luc # (Auto) 0.14; Luc % (Auto) 1; Lymphocytes # (A) 0.4 k/uL (1.0-4.8); Lymphocytes % (A) 4 %; MCH 23.2 pg (25.0-35.0); MCHC 28.7 g/dL (31.0-37.0); MCV 80.9 fL (80.0-100.0); Mean Platelet Volume 7.4; Microcytosis Slight; Monocytes # (A) 0.4 k/uL (0-1.0); Monocytes % (A) 4 %; Neutrophils # (A) 9.1 k/uL (1.3-7.7); Neutrophils % (A) 90 %; RBC 4.29 m/uL (4.30-5.90); RDW 21.1 % (11.5-15.5); WBC 10.1 k/uL (3.8-10.6); WBC (Perox) 10.68
[2017-03-25 02:30] LABS: Appearance,Urine Clear (Clear); Bilirubin,Urine Negative (Negative); Glucose,Urine (UA) Negative (Negative); Ketones,Urine Negative (Negative); Leukocyte Esterase,Urine Negative (Negative); Nitrite,Urine Negative (Negative); PH, Urine 5.5 (5.0-8.0); Protein,Urine Negative (Negative); Specific Gravity,Urine 1.008 (1.001-1.035); UA Billing (MACRO vs. MICRO) CHEM; Urobilinogen,Urine <2.0 mg/dL (<2.0)
[2017-03-25 02:36] LABS: ALT 29 U/L (21-72); AST 15 U/L (17-59); Alkaline Phosphatase 57 U/L (38-126); Anion Gap 12 mmol/L; Blood Urea Nitrogen 23 mg/dL (9-20); Calcium 9.1 mg/dL (8.4-10.2); Carbon Dioxide 18 mmol/L (22-30); Chloride 114 mmol/L (98-107); Glucose 102 mg/dL (74-99); Non-African American GFR(MDRD) >60 (>60 ml/min/1.73 sqM); Potassium 3.8 mmol/L (3.5-5.1); Sodium 144 mmol/L (137-145); Total Bilirubin 0.2 mg/dL (0.2-1.3); Total Protein 6.3 g/dL (6.3-8.2)
[2017-03-25 02:44] LABS: Alcohol 90 mg/dL
[2017-03-25 02:52] LABS: Glucose,Whole Blood 103 mg/dL (75-99)
--- NOTE | 2017-03-25 04:30 | CT ---
EXAM: CT Head Without Intravenous Contrast CLINICAL HISTORY: Reason: Altered mental status TECHNIQUE: Axial computed tomography images of the head/brain without intravenous contrast. DLP is 1627.40 mGy-cm. This CT exam was performed using one or more of the following dose reduction techniques: automated exposure control, adjustment of the mA and/or kV according to patient size, and/or use of iterative reconstruction technique. COMPARISON: 03/28/16 FINDINGS: Brain: Unremarkable. No hemorrhage. No significant white matter disease. No edema. Ventricles: Unremarkable. No ventriculomegaly. Bones/joints: Unremarkable. No acute fracture. Soft tissues: Unremarkable. Sinuses: Unremarkable as visualized. No acute sinusitis. Mastoid air cells: Unremarkable as visualized. No mastoid effusion. IMPRESSION: Normal head/brain CT.
[2017-03-25] MEDS ORDERED: NALOXONE 0.4 MG/ML 1 ML VIAL IV PRN (07:54)
[2017-03-25] MEDS ORDERED: SODIUM CHLORIDE 0.9% 1,000 ML IV SCH (08:00)
[2017-03-25 09:49] VITALS: RESP 16
[2017-03-25 11:01] VITALS: BMI 26.5
--- NOTE | 2017-03-25 15:56 | P.HPIM ---
History of Present Illness H&P Date: 03/25/17 Chief Complaint: confusion Patient is a 42-year-old male with history of ulcerative colitis, anxiety, and prior GI bleed who presented via EMS with confusion. Per records he was found wandering the streets by police and EMS was called. On my exam patient is lethargic but awakes to physical stimuli. He is alert and oriented 3. He is unsure what happened last evening. He states that he has felt fatigued since they have been changing his medications. He knows that he had a prescription for Ambien. He denies any intent to harm himself or others. He cannot recall the events that led to his hospitalization. He has been having some abdominal cramping which is not unusual for him. He denies any overt diarrhea. He denies any anxiety admits to some depression. In the emergency department he underwent an extensive evaluation. He does not have alcohol intoxication that his labs were otherwise normal. He underwent a head CT that was normal. He is admitted to the observation unit for further monitoring and care. Review of Systems General: no fever/chills, no rigors, no weight loss/weight gain, no change in appetite Eyes: No double vision, no unusual blurry vision, no loss of vision ENT: No rhinorrhea, congestion, no trush Cardiovascular: No chest pain, no palpitations, no syncope, no edema, Noo paroxysmal nocturnal dyspnea, No dizziness Pulmonary: No shortness of breath, no wheezing, no cough, hemoptysis Abdominal: + Abdominal cramping, no constipation, no diarrhea, no vomiting, no nausea, no distention Genitourinary: No dysuria, no urinary frequency, no hematuria, no unusual discharge/odor Neuro: No unusual paresthesias, no unusual paresis/paralysis, no headache Dermatologic: No unusual rashes, no unusual lesions, no unusual changes in nails Endocrinology: No intolerance to heat/cold, no excessive thirst, no unusual fatigue Hematologic: No unusual bruising or bleeding, no unusual cervical lymphadenopathy Psychiatric: No changes in mood or behaviors, insomnia Past Medical History Additional Past Medical History / Comment(s): Ulcerative colitis, anxiety, GI bleed History of Any Multi-Drug Resistant Organisms: C-DIFF, MRSA Date of last positivie culture/infection: 2015 MDRO Source:: leg wound Past Surgical History: No Surgical Hx Reported Past Anesthesia/Blood Transfusion Reactions: No Reported Reaction Past Psychological History: Anxiety Smoking Status: Never smoker Past Alcohol Use History: Rare Past Drug Use History: None Reported - Past Family History Mother Family Medical History: COPD, Diabetes Mellitus, Thyroid Disorder Additional Family Medical History / Comment(s): Schizophrenia Father History Unknown: Yes Medications and Allergies Home Medications Medication Instructions Recorded Confirmed Type azaTHIOprine [Azathioprine] 100 mg PO BID 11/25/15 03/25/17 History inFLIXimab [Remicade] 1 dose IVPB Q28D 12/24/15 01/05/17 History Iron Infusion 1 dose IVPB Q7D 01/05/17 01/05/17 History Citalopram Hydrobromide [CeleXA] 10 mg PO DAILY 01/08/17 03/25/17 History HYDROcodone/APAP 5-325MG [[place] 1 tab PO TID PRN 01/08/17 03/25/17 History 5-325] Ondansetron Odt [Zofran Odt] 4 mg PO Q8HR PRN 03/25/17 03/25/17 History Tofacitinib Citrate [Xeljanz] 10 mg PO BID 03/25/17 03/25/17 History Zolpidem Tartrate [Ambien] 5 mg PO HS 03/25/17 03/25/17 History predniSONE 60 mg PO DAILY 03/25/17 03/25/17 History Allergies Allergy/AdvReac Type Severity Reaction Status Date / Time No Known Allergies Allergy Verified 03/25/17 10:25 Physical Exam Osteopathic Statement: *. No significant issues noted on an osteopathic structural exam other than those noted in the History and Physical/Consult. Vitals: Vital Signs Temp Pulse Pulse Resp BP BP Pulse Ox 03/25/17 09:27 97.6 F 86 16 125/78 97 03/25/17 07:20 94 18 108/55 97 03/25/17 05:36 98 18 106/57 95 03/25/17 03:34 93 18 124/83 99 03/25/17 02:14 107 H 22 133/72 98 03/25/17 01:18 97.5 F L 85 18 114/55 98 03/25/17 00:27 98.9 F 137 H 18 154/66 98 Intake and Output 03/24/17 03/25/17 03/25/17 22:59 06:59 14:59 Other: Weight 77.111 kg 72.3 kg Patient Weight 03/26/17 06:59 Weight 72.3 kg General: non toxic, no distress, appears at stated age, normal weight Derm: no rashes, no lesions, no ulcers, no unusual ecchymoses Head: atraumatic, normocephalic, symmetric Eyes: EOMI, no lid lag, anicteric sclera, pupils equal round reactive to light ENT: no post nasal drip, no thrush , nearest patent, no pharyngeal erythema Neck: No thyromegaly, no cervical lymphadenopathy, trachea midline, supple Mouth: no lip lesion, mucus membranes moist Cardiovascular: S1S2 reg, no murmur, positive posterior tibial pulse bilateral, no edema , no JVD, no clubbing, no cyanosis, capillary refill less than 2 seconds Lungs: CTA bilateral, no rhonchi, no rales , no accessory muscle use Abdominal: soft, nontender to palpation, no guarding, no appreciable organomegaly, normal bowel sounds Ext: no gross muscle atrophy, muscle strength 5 out of 5 in all 4 extremities grossly, no contractures, Neuro: CN II-XI grossly intact, light touch intact all 4 extremities, finger to nose within normal limits, Psych: Alert, oriented, lethargic, flat affect Results CBC & Chem 7: 03/25/17 02:09 03/25/17 02:09 Labs: Abnormal Lab Results - Last 24 Hours (Table) 03/25/17 03/25/17 03/25/17 Range/Units 02:09 02:09 02:48 RBC 4.29 L (4.30-5.90) m/uL Hgb 10.0 L (13.0-17.5) gm/dL Hct 34.8 L (39.0-53.0) % MCH 23.2 L (25.0-35.0) pg MCHC 28.7 L (31.0-37.0) g/dL RDW 21.1 H (11.5-15.5) % Neutrophils # 9.1 H (1.3-7.7) k/uL Lymphocytes # 0.4 L (1.0-4.8) k/uL Chloride 114 H (98-107) mmol/L Carbon Dioxide 18 L (22-30) mmol/L BUN 23 H (9-20) mg/dL Glucose 102 H (74-99) mg/dL POC Glucose (mg/dL) 103 H (75-99) mg/dL AST 15 L (17-59) U/L CT Scan - head: report reviewed Thrombosis Risk Factor Assmnt - DVT/VTE Prophylaxis DVT/VTE Prophylaxis: Low risk, early ambulation encouraged - Choose All That Apply Any of the Below Risk Factors Present?: No Assessment and Plan (1) Toxic metabolic encephalopathy Narrative/Plan: Monitor for resolution of confusion with further amount of time away from Ambien , likely due to accidental overdose of Ambien. Patient denies any suicidal or homicidal ideations. He does not appear to be in danger to himself or others. He is alert and oriented 3. If he is more awake and alert plans are to discharge him this afternoon Status: Acute (2) Insomnia Narrative/Plan: May have had an adverse reaction versus overuse of Ambien. Recommend possible use of [id number] melatonin to aid in sleep. Status: Acute (3) Alcohol intoxication Narrative/Plan: Patient does not appear to have EtOH abuse or chronic drinking problem. Monitor for improvement. Based on blood alcohol level his EtOH level should be normal at this time. Status: Acute (4) Anemia Narrative/Plan: Likely due to malabsorption versus chronic blood loss from Crohn's disease. Appears to be at baseline based on review of prior laboratory records from our facility. Status: Acute (5) Ulcerative colitis Narrative/Plan: Follows with GI physician. Currently attempting to switch from Remicade to his Xeljanz Status: Acute
[2017-03-25 16:15] VITALS: BP 136/82; PULSE 95; TEMP 98.2
--- NOTE | 2017-03-25 16:15 | P.DS ---
Providers Date of admission: 03/25/17 07:54 Expected date of discharge: 03/25/17 Attending physician: Edelmira Christy DO Consults: None Primary care physician: Stated None - Discharge Diagnosis(es) (1) Toxic metabolic encephalopathy Current Visit: Yes Status: Acute (2) Insomnia Current Visit: Yes Status: Acute (3) Alcohol intoxication Current Visit: Yes Status: Acute (4) Anemia Current Visit: No Status: Acute (5) Ulcerative colitis Current Visit: No Status: Acute Hospital Course: Patient is a 42-year-old male past medical history of ulcerative colitis, prior GI bleed, and anxiety who presented via EMS for altered mentation. He was found confused and wandering in the street by police and EMS was activated. On examination the ER he was found to have positive blood alcohol level. He has also acutely confused necessitating use of Ativan and Haldol. He had been found carrying an empty bottle of Ambien. He was admitted to the observation unit for further monitoring and care. On admission to the observation unit he was alert and oriented 3. Is able to tolerate that he been struggling with switching off of Remicade into Xeljanz He been using steroids and developed insomnia and was taking Ambien for this. He had been at a [employer] and had a couple of beers. He does not remember anything after this point. He denies any thoughts of harming himself or others. He is alert and oriented 3. It was felt that he had possibly had an accidental overdose of Ambien for some adverse reaction to Ambien. I have counseled him on no longer using Ambien. He could take [id number] melatonin as needed for insomnia. That afternoon he was awake and alert in no longer falling asleep during conversations. He was able to ambulate after the nurse. He was determined stable for discharge home. He will resume his home medication regiment with the exception of Ambien. Pertinent Studies: Head CT negative Patient Condition at Discharge: Stable Plan - Discharge Summary New Discharge Prescriptions: Continue azaTHIOprine [Azathioprine] 100 mg PO BID inFLIXimab [Remicade] 1 dose IVPB Q28D [place] In[place] 1 dose IVPB Q7D HYDROcodone/APAP 5-325MG [[place] 5-325] 1 tab PO TID PRN PRN Reason: Pain Citalopram Hydrobromide [CeleXA] 10 mg PO DAILY Ondansetron Odt [Zofran ODT] 4 mg PO Q8HR PRN PRN Reason: Nausea predniSONE 60 mg PO DAILY Tofacitinib Citrate [Xeljanz] 10 mg PO BID Discontinued Zolpidem Tartrate [Ambien] 5 mg PO HS Discharge Medication List azaTHIOprine [Azathioprine] 100 mg PO BID 11/25/15 [History] inFLIXimab [Remicade] 1 dose IVPB Q28D 12/24/15 [History] Iron Infusion 1 dose IVPB Q7D 01/05/17 [History] Citalopram Hydrobromide [CeleXA] 10 mg PO DAILY 01/08/17 [History] HYDROcodone/APAP 5-325MG [[place] 5-325] 1 tab PO TID PRN 01/08/17 [History] Ondansetron Odt [Zofran ODT] 4 mg PO Q8HR PRN 03/25/17 [History] Tofacitinib Citrate [Xeljanz] 10 mg PO BID 03/25/17 [History] predniSONE 60 mg PO DAILY 03/25/17 [History] Follow up Appointment(s)/Referral(s): None,Stated [Primary Care Provider] - 1-2 days Activity/Diet/Wound Care/Special Instructions: regular diet, activity as tolerated. No more ambien use. Can take Over the counter Melatonin 3-5mg nightly as needed for sleep. Discharge Disposition: HOME SELF-CARE
== END 2017-03-25 16:51 | disposition home or self-care (01) ==
LOC: EC 00:24 → 3OBS 07:54
PROVIDERS: ADMIT Internal Medicine; ATTEND Internal Medicine
DX: G92 Toxic encephalopathy (principal); G47.00 Insomnia, unspecified; F10.129 Alcohol abuse with intoxication, unspecified; D64.9 Anemia, unspecified; K51.90 Ulcerative colitis, unspecified, without complications; Z79.899 Other long term (current) drug therapy; Z79.52 Long term (current) use of systemic steroids; F41.9 Anxiety disorder, unspecified; Z81.8 Family history of other mental and behavioral disorders; Z83.3 Family history of diabetes mellitus; Z82.5 Family history of asthma and other chronic lower respiratory diseases; Z86.14 Personal history of Methicillin resistant Staphylococcus aureus infection; Z91.83 Wandering in diseases classified elsewhere; Z16.24 Resistance to multiple antibiotics; Y90.4 Blood alcohol level of 80-99 mg/100 ml
CPT/HCPCS: 96372 ×4; 99285; 36415; 93005; 80053; 85025; 81003; 80306; 80320; 70450; G0378; J2060; J1630

== ENCOUNTER 2017-03-27 11:46 | Emergency (ER) | payer OTHER ==
[2017-03-27 11:52] VITALS: BP 141/69; TEMP 98.8
[2017-03-27 12:07] VITALS: PULSE 121; RESP 16
--- NOTE | 2017-03-27 12:29 | ED ---
General Adult HPI - General Chief complaint: Syncope Stated complaint: syncope Time Seen by Provider: 03/27/17 12:22 Source: patient, EMS, RN notes reviewed Mode of arrival: EMS Limitations: no limitations - History of Present Illness Initial comments: 42-year-old male was brought in by EMS. Patient states he is just tired and he would like to go home. Patient refuses to give any of the history. Patient denies any drug or alcohol use. Patient states does not want to be here and he would like to leave at this time. Patient will not provide any other history. - Related Data Home Medications Medication Instructions Recorded Confirmed azaTHIOprine [Azathioprine] 100 mg PO BID 11/25/15 03/27/17 inFLIXimab [Remicade] 1 dose IVPB Q28D 12/24/15 03/27/17 Iron Infusion 1 dose IVPB Q7D 01/05/17 03/27/17 Citalopram Hydrobromide [CeleXA] 10 mg PO DAILY 01/08/17 03/27/17 HYDROcodone/APAP 5-325MG [[place] 1 tab PO TID PRN 01/08/17 03/27/17 5-325] Ondansetron Odt [Zofran ODT] 4 mg PO Q8HR PRN 03/25/17 03/27/17 Tofacitinib Citrate [Xeljanz] 10 mg PO BID 03/25/17 03/27/17 predniSONE 60 mg PO DAILY 03/25/17 03/27/17 Allergies Allergy/AdvReac Type Severity Reaction Status Date / Time No Known Allergies Allergy Verified 03/27/17 12:19 Review of Systems ROS Statement: Those systems with pertinent positive or pertinent negative responses have been documented in the HPI. ROS Other: All systems not noted in ROS Statement are negative. Past Medical History Past Medical History: No Reported History Additional Past Medical History / Comment(s): Ulcerative colitis, anxiety, GI bleed History of Any Multi-Drug Resistant Organisms: C-DIFF, MRSA Date of last positivie culture/infection: 2015 MDRO Source:: leg wound Past Surgical History: No Surgical Hx Reported Past Anesthesia/Blood Transfusion Reactions: No Reported Reaction Past Psychological History: Anxiety Smoking Status: Never smoker Past Alcohol Use History: Rare Past Drug Use History: None Reported - Past Family History Mother Family Medical History: COPD, Diabetes Mellitus, Thyroid Disorder Additional Family Medical History / Comment(s): Schizophrenia Father History Unknown: Yes General Exam Limitations: no limitations General appearance: alert Head exam: Present: other (tried blood to head no laceration noted to scalp small above right eyebrow) Neurological exam: Present: alert, oriented X3 Psychiatric exam: Present: normal affect, normal mood Course Vital Signs 03/27/17 03/27/17 11:48 12:07 Temperature 98.8 F Pulse Rate 128 H 121 H Respiratory 18 16 Rate Blood Pressure 141/69 141/69 O2 Sat by Pulse 95 95 Oximetry Medical Decision Making - Medical Decision Making 42-year-old male presents by EMS for concern for syncope. When I went in to evaluate the patient he states that he would just like to leave. He states he is only tired and will not provide any other history. He states that he just wants to go home. He states he has not been sleeping well. He is alert and oriented to self. I discussed that I no idea why he passed out I have no imaging I have no testing and I do blood work Slip and his heart and like to further evaluate reasons for syncope i would like to look at his brain and he states that he does not want have these tests I told him that by leaving he could in he reiterates to me that he knows that if he leaves that he could but he does not believe this is what is happening he does not want to be here. This time the patient stated that he would like to leave. This time we discussed the only way that he is able to leave this to leave AGAINST MEDICAL ADVICE and I do not recommend this. The patient states that he would like to go home and he would like to sign out AGAINST MEDICAL ADVICE this time. He is alert and oriented he is able to make his own decisions. At this time the patient did leave AMA. Disposition Clinical Impression: Syncope Disposition: Left Against Medical Advice Referrals: Ezequiel Salinas MD [Primary Care Provider] - 1-2 days
== END 2017-03-27 13:20 | disposition left against medical advice (07) ==
LOC: EC 11:46
DX: R55 Syncope and collapse (principal); Z79.52 Long term (current) use of systemic steroids; Z79.899 Other long term (current) drug therapy
CPT/HCPCS: 99284

== ENCOUNTER 2018-01-08 22:24 | Emergency (ER) | payer MEDICARE, OTHER ==
[2018-01-08 22:31] VITALS: RESP 18; TEMP 98.8
--- NOTE | 2018-01-08 23:12 | ED ---
Chest Pain HPI - General Chief Complaint: Chest Pain Stated Complaint: Chest Pain Time Seen by Provider: 01/08/18 22:51 Source: patient, RN notes reviewed Mode of arrival: ambulatory Limitations: no limitations - History of Present Illness Initial Comments: This is a 42-year-old male with a history he states of substance abuse in the past who states he been having intermittent episodes of left-sided chest pain recently. He is concerned he may have some heart issues due to his life of hard partying. He does not have any complaints of fevers chills nausea vomiting sweats cough or phlegm production abdominal pain or other symptoms at this time. He has no known history of heart disease. He currently does not have any pain but states he feels intermittent twinges on the left side. He does not seem to be associated with movement or deep breathing. MD Complaint: chest pain - Related Data Home Medications Medication Instructions Recorded Confirmed Citalopram Hydrobromide [CeleXA] 10 mg PO DAILY 01/08/17 01/08/18 Tofacitinib Citrate [Xeljanz] 10 mg PO BID 03/25/17 01/08/18 Previous Rx's Medication Instructions Recorded Ibuprofen 800 mg PO Q6HR PRN #20 tablet 01/09/18 Allergies Allergy/AdvReac Type Severity Reaction Status Date / Time No Known Allergies Allergy Verified 01/08/18 23:17 Review of Systems ROS Statement: Those systems with pertinent positive or pertinent negative responses have been documented in the HPI. ROS Other: All systems not noted in ROS Statement are negative. EKG Findings - EKG Results: EKG: interpreted by OMAYRA, sinus rhythm (Sinus rhythm incomplete right bundle- branch block rate was 89. Interval 142 QRS duration 92 QT since QTC of 360/438 no acute changes seen) Past Medical History Past Medical History: No Reported History Additional Past Medical History / Comment(s): Ulcerative colitis, anxiety, GI bleed History of Any Multi-Drug Resistant Organisms: C-DIFF, MRSA Date of last positivie culture/infection: 2015 MDRO Source:: leg wound Past Surgical History: No Surgical Hx Reported Past Anesthesia/Blood Transfusion Reactions: No Reported Reaction Past Psychological History: Anxiety Smoking Status: Former smoker Past Alcohol Use History: Rare Past Drug Use History: None Reported - Past Family History Mother Family Medical History: COPD, Diabetes Mellitus, Thyroid Disorder Additional Family Medical History / Comment(s): Schizophrenia Father History Unknown: Yes General Exam - General Exam Comments Initial Comments: This is a well-developed well-nourished awake alert oriented times 3 male Limitations: no limitations General appearance: alert, anxious Head exam: Present: atraumatic, normocephalic, normal inspection Eye exam: Present: normal appearance, PERRL, EOMI. Absent: scleral icterus, conjunctival injection, periorbital swelling ENT exam: Present: normal exam, mucous membranes moist Neck exam: Present: normal inspection. Absent: tenderness, meningismus, lymphadenopathy Respiratory exam: Present: normal lung sounds bilaterally. Absent: respiratory distress, wheezes, rales, rhonchi, stridor Cardiovascular Exam: Present: regular rate, normal rhythm, normal heart sounds. Absent: systolic murmur, diastolic murmur, rubs, gallop, clicks GI/Abdominal exam: Present: soft, normal bowel sounds. Absent: distended, tenderness, guarding, rebound, rigid Extremities exam: Present: normal inspection, full ROM, normal capillary refill. Absent: tenderness, pedal edema, joint swelling, calf tenderness Back exam: Present: normal inspection Neurological exam: Present: alert, oriented X3, CN II-XII intact Psychiatric exam: Present: normal affect, normal mood Skin exam: Present: warm, dry, intact, normal color. Absent: rash Course Vital Signs 01/08/18 01/08/18 01/08/18 22:29 23:07 23:58 Temperature 98.8 F Pulse Rate 119 H 100 89 Respiratory 18 18 18 Rate Blood Pressure 121/80 109/60 130/88 O2 Sat by Pulse 97 98 99 Oximetry Chest Pain MDM - MDM I did review the imaging and report no acute findings. The patient's presentation is consistent with a musculoskeletal etiology her pain likely costochondritic. Patient be discharged on appropriate medications she is follow -up with his doctor and return when necessary Disposition Clinical Impression: Chest wall syndrome, Costalchondritis Disposition: HOME SELF-CARE Condition: Good Instructions: Costochondritis (ED) Prescriptions: Ibuprofen 800 mg PO Q6HR PRN #20 tablet PRN Reason: Pain Is patient prescribed a controlled substance at d/c from ED?: No Referrals: Ezequiel Salinas MD [Primary Care Provider] - 1-2 days
[2018-01-08 23:30] LABS: Anisocytosis Slight; Basophils % (A) 0 %; Eosinophils # (A) 0.1 k/uL (0-0.7); Eosinophils % (A) 1 %; HGB 13.5 gm/dL (13.0-17.5); Lymphocytes # (A) 1.4 k/uL (1.0-4.8); Lymphocytes % (A) 16 %; MCH 27.6 pg (25.0-35.0); MCHC 32.9 g/dL (31.0-37.0); MCV 83.7 fL (80.0-100.0); Mean Platelet Volume 7.5; Monocytes # (A) 0.7 k/uL (0-1.0); Monocytes % (A) 8 %; Neutrophils # (A) 6.2 k/uL (1.3-7.7); Neutrophils % (A) 73 %; Platelet Count 234 k/uL (150-450); RDW 16.7 % (11.5-15.5); WBC 8.6 k/uL (3.8-10.6)
[2018-01-08 23:38] LABS: ALT 36 U/L (21-72); AST 24 U/L (17-59); Albumin 3.5 g/dL (3.5-5.0); Alkaline Phosphatase 52 U/L (38-126); Amylase 53 U/L (30-110); Anion Gap 8 mmol/L; Blood Urea Nitrogen 23 mg/dL (9-20); Calcium 9.1 mg/dL (8.4-10.2); Carbon Dioxide 26 mmol/L (22-30); Chloride 105 mmol/L (98-107); Glucose 87 mg/dL (74-99); Lipase 62 U/L (23-300); Magnesium 1.9 mg/dL (1.6-2.3); Potassium 4.2 mmol/L (3.5-5.1); Sodium 139 mmol/L (137-145); Total Bilirubin 0.3 mg/dL (0.2-1.3); Total Protein 5.3 g/dL (6.3-8.2)
--- NOTE | 2018-01-08 23:39 | XR ---
EXAMINATION TYPE: XR chest 2V DATE OF EXAM: 01/08/2018 COMPARISON: NONE HISTORY: Chest pain for 2 months TECHNIQUE: Frontal and lateral views of the chest are obtained. FINDINGS: Heart and mediastinum are normal. Lungs are clear. Diaphragm is normal. There are chest le ads. Bony thorax appears normal. IMPRESSION: Normal chest
[2018-01-08 23:43] LABS: D-Dimer 0.23 mg/L FEU (<0.60); Partial Thromboplastin Time 23.9 sec (22.0-30.0); Prothrombin Time 9.8 sec (9.0-12.0)
[2018-01-08 23:54] LABS: Creatine Kinase 179 U/L (55-170)
[2018-01-09 00:07] LABS: Creatine Kinase MB 2.1 ng/mL (0.0-2.4); Troponin I <0.012 ng/mL (0.000-0.034)
[2018-01-09 00:54] VITALS: BP 122/87; PULSE 84
== END 2018-01-09 01:00 | disposition home or self-care (01) ==
LOC: EC 22:24
DX: M94.0 Chondrocostal junction syndrome [Tietze] (principal); I45.10 Unspecified right bundle-branch block; Z86.14 Personal history of Methicillin resistant Staphylococcus aureus infection; Z79.899 Other long term (current) drug therapy; Z87.891 Personal history of nicotine dependence
CPT/HCPCS: 36415; 71046; 80053; 82150; 82550; 82553; 83690; 83735; 83880; 84484; 85025; 85379; 85610; 85730; 93005; 99285

== ENCOUNTER 2018-09-01 09:02 | Inpatient (IN) | payer MEDICARE, MEDICAID ==
--- NOTE | 2018-09-01 09:54 | ED ---
Psych HPI - General Chief Complaint: Psychiatric Symptoms Stated Complaint: Mental health Time Seen by Provider: 09/01/18 09:03 Source: patient, EMS, RN notes reviewed Mode of arrival: EMS Limitations: no limitations - History of Present Illness Initial Comments: 43-year-old male presents emergency Department via EMS for psychiatric evaluation. Patient reportedly was having bizarre behavior states that he had a trash with a plunger swinging at random objects. Patient states that this was just a show states that he did not smoke any crack cocaine as expected. Patient denies being suicidal or homicidal he does have a history of alcohol and drug abuse. Patient states he also has ongoing ulcerative colitis. Patient denies any recent alcohol use. Patient offers no complaints. Patient does not psychiatric help. - Related Data Home Medications Medication Instructions Recorded Confirmed Citalopram Hydrobromide [CeleXA] 10 mg PO DAILY 01/08/17 09/01/18 Tofacitinib Citrate [Xeljanz] 10 mg PO BID 03/25/17 09/01/18 Cholecalciferol [Vitamin D3] 5,000 unit PO DAILY 09/01/18 09/01/18 Ferrous Sulfate [Feosol] 325 mg PO DAILY 09/01/18 09/01/18 Allergies Allergy/AdvReac Type Severity Reaction Status Date / Time No Known Allergies Allergy Verified 09/02/18 03:16 Review of Systems ROS Statement: Those systems with pertinent positive or pertinent negative responses have been documented in the HPI. ROS Other: All systems not noted in ROS Statement are negative. Past Medical History Past Medical History: No Reported History Additional Past Medical History / Comment(s): Ulcerative colitis, anxiety, GI bleed History of Any Multi-Drug Resistant Organisms: C-DIFF, MRSA Date of last positivie culture/infection: 2015 MDRO Source:: leg wound Past Surgical History: No Surgical Hx Reported Past Anesthesia/Blood Transfusion Reactions: No Reported Reaction Past Psychological History: Anxiety Smoking Status: Former smoker Past Alcohol Use History: Rare Past Drug Use History: None Reported - Past Family History Mother Family Medical History: COPD, Diabetes Mellitus, Thyroid Disorder Additional Family Medical History / Comment(s): Schizophrenia Father History Unknown: Yes General Exam Limitations: no limitations General appearance: alert, in no apparent distress Head exam: Present: atraumatic, normocephalic, normal inspection Eye exam: Present: normal appearance, PERRL, EOMI. Absent: scleral icterus, conjunctival injection, periorbital swelling ENT exam: Present: normal exam, normal oropharynx, mucous membranes moist Neck exam: Present: normal inspection. Absent: tenderness, meningismus, lymphadenopathy Respiratory exam: Present: normal lung sounds bilaterally. Absent: respiratory distress, wheezes, rales, rhonchi, stridor Cardiovascular Exam: Present: regular rate, normal rhythm, normal heart sounds. Absent: systolic murmur, diastolic murmur, rubs, gallop, clicks Neurological exam: Present: alert, oriented X3, CN II-XII intact Skin exam: Present: warm, dry, intact, normal color. Absent: rash Course Vital Signs 09/01/18 09/01/18 09/02/18 09:55 12:20 03:00 Temperature 98 F Pulse Rate 89 80 92 Pulse Rate [ Left Pulse Oximetery] Respiratory 16 18 16 Rate Blood Pressure 147/89 129/78 138/92 Blood Pressure [Left Arm] O2 Sat by Pulse 97 97 95 Oximetry 09/02/18 03:36 Temperature 98.2 F Pulse Rate Pulse Rate [ 133 H Left Pulse Oximetery] Respiratory 16 Rate Blood Pressure Blood Pressure 131/84 [Left Arm] O2 Sat by Pulse 98 Oximetry Procedures - Restraint - Face to Face Restraint Occurrence 1 Patient's Immediate Situation: Endangers self safety, Endangers staff safety, Violent behavior Patient's Reaction to the Intervention: Uncooperative, Angry, Aggressive, Combative Patient's Medical & Behavioral Condition: Awake, Alert, Agitated Need to Continue or Terminate Restraint or Seclusion: Continue Face to Face Eval of Restraint Date: 09/01/18 Face to Face Eval of Restraint Time: 11:28 Medical Decision Making - Lab Data Lab Results 09/01/18 Range/Units 11:00 Urine Opiates Screen Not Detected (NotDetected) Ur Oxycodone Screen Not Detected (NotDetected) Urine Methadone Screen Not Detected (NotDetected) Ur Propoxyphene Screen Not Detected (NotDetected) Ur Barbiturates Screen Not Detected (NotDetected) U Tricyclic Antidepress Not Detected (NotDetected) Ur Phencyclidine Scrn Not Detected (NotDetected) Ur Amphetamines Screen Detected H (NotDetected) U Methamphetamines Scrn Detected H (NotDetected) U Benzodiazepines Scrn Detected H (NotDetected) Urine Cocaine Screen Not Detected (NotDetected) U Marijuana (THC) Screen Detected H (NotDetected) Disposition Clinical Impression: Psychosis Disposition: TRANSFER TO PSYCH HOSP/UNIT Condition: Fair
[2018-09-01] MEDS ORDERED: ZIPRASIDONE 20 MG VIAL IM STA (11:14)
[2018-09-01] MEDS ORDERED: LORazepam 2 MG/ML INJ IM STA (11:14)
[2018-09-01 11:49] LABS: Amphetamine Screen,Urine Detected (NotDetected); Barbiturate Screen,Urine Not Detected (NotDetected); Benzodiazepines Screen,Urine Detected (NotDetected); Cocaine Screen,Urine Not Detected (NotDetected); Methadone Screen, Urine Not Detected (NotDetected); Opiate Screen,Urine Not Detected (NotDetected); Oxycodone Screen, Urine Not Detected (NotDetected); Phencyclidine Screen,Urine Not Detected (NotDetected); Tricyclic Antidepressant,Urine Not Detected (NotDetected); Urn Cannabinoid Scrn Detected (NotDetected)
[2018-09-02] MEDS ORDERED: ZIPRASIDONE 20 MG VIAL IM PRN (02:54)
[2018-09-02] MEDS ORDERED: MAGNESIUM HYDROXIDE 2,400 MG/10 ML CUP PO PRN (02:54)
[2018-09-02] MEDS ORDERED: MAG HYDROX/AL HYDROX/SIMETH 30 ML CUP PO PRN (02:54)
[2018-09-02] MEDS ORDERED: ACETAMINOPHEN TAB 325 MG TAB PO PRN (02:54)
[2018-09-02] MEDS ORDERED: LORazepam 2 MG/ML INJ IM STA (02:57)
[2018-09-02] MEDS ORDERED: ZIPRASIDONE 20 MG VIAL IM STA (02:58)
[2018-09-02] MEDS ORDERED: LORazepam 2 MG/ML INJ IM PRN (03:04)
[2018-09-02 08:10] LABS: Anisocytosis Slight; Basophils # (A) 0.1 k/uL (0-0.2); Basophils % (A) 1 %; Eosinophils # (A) 0.8 k/uL (0-0.7); Eosinophils % (A) 10 %; HCT 43.5 % (39.0-53.0); HGB 13.9 gm/dL (13.0-17.5); Hypochromasia Slight; Lymphocytes # (A) 0.7 k/uL (1.0-4.8); Lymphocytes % (A) 8 %; MCH 28.5 pg (25.0-35.0); MCHC 31.9 g/dL (31.0-37.0); MCV 89.2 fL (80.0-100.0); Monocytes # (A) 0.8 k/uL (0-1.0); Monocytes % (A) 9 %; Neutrophils % (A) 70 %; Platelet Count 425 k/uL (150-450); RBC 4.88 m/uL (4.30-5.90); RDW 16.2 % (11.5-15.5); WBC 8.5 k/uL (3.8-10.6)
[2018-09-02 08:22] LABS: ALT 37 U/L (21-72); AST 30 U/L (17-59); Albumin 3.6 g/dL (3.5-5.0); Alkaline Phosphatase 79 U/L (38-126); Anion Gap 6 mmol/L; Blood Urea Nitrogen 20 mg/dL (9-20); Calcium 9.1 mg/dL (8.4-10.2); Carbon Dioxide 23 mmol/L (22-30); Chloride 111 mmol/L (98-107); Cholesterol 163 mg/dL (<200); Glucose 83 mg/dL (74-99); HDL Cholesterol 51 mg/dL (40-60); LDL Cholesterol,Calculated 94 mg/dL (0-99); Potassium 4.4 mmol/L (3.5-5.1); Sodium 140 mmol/L (137-145); Total Bilirubin 0.7 mg/dL (0.2-1.3); Total Protein 6.3 g/dL (6.3-8.2); Triglycerides 90 mg/dL (<150)
--- NOTE | 2018-09-02 13:08 | P.HP ---
Psychiatric H&P - . H&P Date: 09/02/18 History & Physical: Allergies Allergy/AdvReac Type Severity Reaction Status Date / Time No Known Allergies Allergy Verified 09/02/18 03:16 Vital Signs Temp 98.2 F 09/02/18 03:36 Pulse 133 H 09/02/18 03:36 Resp 16 09/02/18 03:36 BP 131/84 09/02/18 03:36 Pulse Ox 98 09/02/18 03:36 Intake & Output 09/01/18 09/02/18 09/02/18 18:59 06:59 18:59 Weight 63.503 kg Laboratory Last Values WBC 8.5 k/uL (3.8-10.6) 09/02/18 07:50 RBC 4.88 m/uL (4.30-5.90) 09/02/18 07:50 Hgb 13.9 gm/dL (13.0-17.5) 09/02/18 07:50 Hct 43.5 % (39.0-53.0) 09/02/18 07:50 MCV 89.2 fL (80.0-100.0) 09/02/18 07:50 MCH 28.5 pg (25.0-35.0) 09/02/18 07:50 MCHC 31.9 g/dL (31.0-37.0) 09/02/18 07:50 RDW 16.2 % (11.5-15.5) H 09/02/18 07:50 Plt Count 425 k/uL (150-450) 09/02/18 07:50 Neutrophils % 70 % 09/02/18 07:50 Lymphocytes % 8 % 09/02/18 07:50 Monocytes % 9 % 09/02/18 07:50 Eosinophils % 10 % 09/02/18 07:50 Basophils % 1 % 09/02/18 07:50 Neutrophils # 6.0 k/uL (1.3-7.7) 09/02/18 07:50 Lymphocytes # 0.7 k/uL (1.0-4.8) L 09/02/18 07:50 Monocytes # 0.8 k/uL (0-1.0) 09/02/18 07:50 Eosinophils # 0.8 k/uL (0-0.7) H 09/02/18 07:50 Basophils # 0.1 k/uL (0-0.2) 09/02/18 07:50 Hypochromasia Slight 09/02/18 07:50 Anisocytosis Slight 09/02/18 07:50 Sodium 140 mmol/L (137-145) 09/02/18 07:50 Potassium 4.4 mmol/L (3.5-5.1) 09/02/18 07:50 Chloride 111 mmol/L (98-107) H 09/02/18 07:50 Carbon Dioxide 23 mmol/L (22-30) 09/02/18 07:50 Anion Gap 6 mmol/L 09/02/18 07:50 BUN 20 mg/dL (9-20) 09/02/18 07:50 Creatinine 1.16 mg/dL (0.66-1.25) 09/02/18 07:50 Est GFR (CKD-EPI)AfAm >90 (>60 ml/min/1.73 sqM) 09/02/18 07:50 Est GFR (CKD-EPI)NonAf 78 (>60 ml/min/1.73 sqM) 09/02/18 07:50 Glucose 83 mg/dL (74-99) 09/02/18 07:50 Calcium 9.1 mg/dL (8.4-10.2) 09/02/18 07:50 Total Bilirubin 0.7 mg/dL (0.2-1.3) 09/02/18 07:50 AST 30 U/L (17-59) 09/02/18 07:50 ALT 37 U/L (21-72) 09/02/18 07:50 Alkaline Phosphatase 79 U/L (38-126) 09/02/18 07:50 Total Protein 6.3 g/dL (6.3-8.2) 09/02/18 07:50 Albumin 3.6 g/dL (3.5-5.0) 09/02/18 07:50 Triglycerides 90 mg/dL (<150) 09/02/18 07:50 Cholesterol 163 mg/dL (<200) 09/02/18 07:50 LDL Cholesterol, Calc 94 mg/dL (0-99) 09/02/18 07:50 HDL Cholesterol 51 mg/dL (40-60) 09/02/18 07:50 TSH 1.090 mIU/L (0.465-4.680) 09/02/18 07:50 Urine Opiates Screen Not Detected (NotDetected) 09/01/18 11:00 Ur Oxycodone Screen Not Detected (NotDetected) 09/01/18 11:00 Urine Methadone Screen Not Detected (NotDetected) 09/01/18 11:00 Ur Propoxyphene Screen Not Detected (NotDetected) 09/01/18 11:00 Ur Barbiturates Screen Not Detected (NotDetected) 09/01/18 11:00 U Tricyclic Antidepress Not Detected (NotDetected) 09/01/18 11:00 Ur Phencyclidine Scrn Not Detected (NotDetected) 09/01/18 11:00 Ur Amphetamines Screen Detected (NotDetected) H 09/01/18 11:00 U Methamphetamines Scrn Detected (NotDetected) H 09/01/18 11:00 U Benzodiazepines Scrn Detected (NotDetected) H 09/01/18 11:00 Urine Cocaine Screen Not Detected (NotDetected) 09/01/18 11:00 U Marijuana (THC) Screen Detected (NotDetected) H 09/01/18 11:00 Assessment and Plan Assessment: 43-year-old male presents emergency Department via EMS for psychiatric evaluation. Patient reportedly was having bizarre behavior states that he had a trash with a plunger swinging at random objects. Patient states that this was just a show states that he did not smoke any crack cocaine as expected. Patient denies being suicidal or homicidal he does have a history of alcohol and drug abuse. Patient states he also has ongoing ulcerative colitis. Patient denies any recent alcohol use. Patient offers no complaints. Patient does not psychiatric help. - Related Data Home Medications Medication Instructions Recorded Confirmed Citalopram Hydrobromide [CeleXA] 10 mg PO DAILY 01/08/17 09/01/18 Tofacitinib Citrate [Xeljanz] 10 mg PO BID 03/25/17 09/01/18 Cholecalciferol [Vitamin D3] 5,000 unit PO DAILY 09/01/18 09/01/18 Ferrous Sulfate [Feosol] 325 mg PO DAILY 09/01/18 09/01/18 Allergies Allergy/AdvReac Type Severity Reaction Status Date / Time No Known Allergies Allergy Verified 09/02/18 03:16 Past Medical History Past Medical History: No Reported History Additional Past Medical History / Comment(s): Ulcerative colitis, anxiety, GI bleed History of Any Multi-Drug Resistant Organisms: C-DIFF, MRSA Date of last positivie culture/infection: 2015 MDRO Source:: leg wound Past Surgical History: No Surgical Hx Reported Past Anesthesia/Blood Transfusion Reactions: No Reported Reaction Past Psychological History: Anxiety Smoking Status: Never smoker Past Alcohol Use History: Rare Past Drug Use History: None Reported - Past Family History Mother Family Medical History: COPD, Diabetes Mellitus, Thyroid Disorder Additional Family Medical History / Comment(s): Schizophrenia Father History Unknown: Yes College- no graduation Legal:DUI, drunkiness, 4 felonies never : 8 children by 6 women Musculoskeletal Examination - Abnormal/Involuntary Movements: [none Strength: [greater than antigravity (greater than/equal to 3/5) in all extremities Muscle Tone: [no impairment Gait: [grossly normal Station: [grossly normal Mental Status Examination - General Appearance: [casual, appears stated age, Speech/Language: [ rapid, rambled, mumbling, expressive, loud Attitude/Behavior: [cooperative Mood: [ depressed, anxious, irritable, angry, fearful, hopelessness Affect: [lively, blunted constricted] Orientation: [time, person, place situation] Thought Content: [wnl, denies delusions, obsessions, phobias, other] Risk Factors: [Denies suicidal (ideations, plan), and/or Homicidal (ideations, plan), other] Perception: [wnl,??? hallucinations (auditory, visual, tactile), other] Thought Processes: [ concrete, circumstantial, tangential] Concentration/Attention Span: [wnl, impaired] [Per observation and interview with the patient] Recent Memory: [wnl] [0, 1, 2 or 3 out of 3 in 3 minutes] Remote Memory: [wnl, ] [past events, as related history] Intelligence: [ average [based on history, based on vocabulary, syntax, grammar , and content] Judgement: [good] [per patient's behavior/history of present illness] Insight: [good] [understanding severity of illness/history of present illness] Admitting Diagnosis: [Major depressive disorder with psychotic features] Patient Strengths - Steady employment/financial stability: [x] Housing stability: [x] Able to vocalize needs: [x] Motivation, determination, readiness for change: [x] Patient Limitations: [medication, non-compliance, pathological/unsupported environment, complicated medical illness, legal issues, lack of social supports] Initial Plan of Care: [He is admitted involuntary to the [facility] mental health unit [facility] for acute psychosis and major depressive disorder. He will be placed on 15 minute checks and typical [facility] protocol. He will be evaluated by medicine, psychiatry, nursing staff, social work and occupational therapy. He'll be integrated in [facility] therapeutic environment whereby he'll be expected to go to groups and take his medication as indicated. He will be started on Prolixin 5 mg by mouth daily and desipramine 50 mg by mouth daily at bedtime, along with Catapres 0.1 mg twice a day.] Estimated Length of Stay: [7] Initial Discharge Plan: [home, [facility], referred to therapist, [facility], intensive outpatient, residential placement, other] Prognosis: [good, fair, guarded] Justification for Inpatient Hospitalization - agitation, anxiety, depression resulting in significant loss of functioning.] [Dangerous to others, or property with need for controlled environment.] [Emotional or behavioral conditions and complications requiring 24 hour medical and nursing care.] [Need for special drug therapy, or other therapeutic program requiring continuous hospitalization.] [Failure of social or occupational functioning.] [Inability to meet basic life and health needs.] [Legally mandated admission.] (1) Major depressive disorder with psychotic features Current Visit: Yes Status: Acute Priority: High Code(s): F32.3 - MAJOR DEPRESSV DISORD, SINGLE EPSD, SEVERE W PSYCH FEATURES SNOMED Code(s): 72227459 Time with Patient: Less than 30
[2018-09-02 17:39] LABS: Hemoglobin A1C 5.9 % (4.0-6.0)
--- NOTE | 2018-09-02 18:12 | CONS ---
CONSULTATION DATE OF CONSULTATION: 09/02/2018 REASON FOR CONSULTATION: Medical management requested by Dr. Salinas. CONSULTATION: This is a pleasant 43-year-old patient of Dr. Salinas. The patient has a known diagnosis of ulcerative colitis. Follows locally with his family doctor, Dr. Salinas. In [facility], he follows with Dr. Babcock. The patient is on Xeljanz and averages anywhere from 6-10 bowel movements a day. No abdominal pain. The patient was brought in by the police after he came out of the bathroom with toilet paper, a broom in one hand and the dust ruelas in the other hand and was somewhat agitated. In the ER, also he threw a sandwich over the nurses head. The patient does not recollect exactly what led to all these episodes. On more direct questioning, I did tell him that his urine drug screen was positive for amphetamines, benzodiazepines, marijuana. The patient said he has been getting stressed out with the mother of his children and he decided to take some of these. As he could not recollect the entire episode leading to what he brought into the hospital. Patient is rather calm when I am talking to him with some anxious moments. Otherwise, he has been eating well. Denies any fever and chills. The patient has been under rather anxious and was seen by his psychiatrist this afternoon, diagnosed to have major depression with psychotic features. REVIEW OF SYSTEMS: CONSTITUTIONAL: None. HEENT: None. RESPIRATORY none. CARDIOVASCULAR: None. GASTROINTESTINAL as above. GENITOURINARY: None. MUSCULOSKELETAL none. DERMATOLOGICAL, HEMATOLOGIC, LYMPHATIC: None. PSYCHIATRY: More details in psychiatry notes. NEUROLOGICAL: None. PAST MEDICAL HISTORY: Ulcerative colitis, C diff, MRSA, anxiety. PAST SURGICAL HISTORY: None. SOCIAL HISTORY: The patient is on disability. Does not smoke. Did heavy alcohol in the past. Lives by himself. FAMILY HISTORY: Positive for COPD and diabetes. HOME MEDICATIONS: 1. Xeljanz 10 mg p.o. b.i.d. 2. Iron 325 p.o. daily. 3. Celexa 10 mg p.o. daily. 4. Vitamin D3 5000 units p.o. daily. ALLERGIES: None. PHYSICAL EXAMINATION: VITAL SIGNS: Temperature 98.2, pulse 130, respiration 16, blood pressure 130/84, pulse ox 98% on room air. GENERAL APPEARANCE: Lying in bed, comfortable. EYES: Pupils equal. Conjunctivae normal. HEENT: External appearance of nose and ears normal. Oral cavity normal. NECK: JVD not raised. Mass not palpable. RESPIRATORY: Effort normal. LUNGS are clear. CARDIOVASCULAR: 1st and 2nd sounds normal. No edema. ABDOMEN: Soft, nontender. Liver and spleen not palpable. LYMPHATIC: No lymph nodes palpable in the neck and axilla. PSYCHIATRY: Answering questions appropriately. Anxious-appearing. NEUROLOGICAL: Pupils equal. Cranial nerves grossly intact. Power and sensation grossly intact. INVESTIGATION: White count 8.5, hemoglobin 13.9, platelets normal. Potassium 4.4, BUN and creatinine normal. Urine drug screen positive for amphetamines, methamphetamines, benzodiazepine, marijuana. ASSESSMENT: 1. Major depression with psychotic features as per Psychiatry. 2. Chronic ulcerative colitis. The patient is on maintenance dose of Xeljanz. 3. Recreation use of amphetamines, methamphetamines, benzodiazepine, marijuana. Discussed with the patient to stay off the recreational medications. The patient should resume his Xeljanz. He can bring it from home or have somebody bring it. Other medications as per Psychiatry. Care was discussed with the patient. Thank you Dr. Lares. Copy to Dr. Salinas. MMODL / CARN: [id number] /
[2018-09-02] MEDS: cloNIDine HCL 0.1 MG TAB PO SCH (21:00)
[2018-09-02] MEDS ORDERED: DESIPRAMINE 25 MG TAB PO SCH (21:00)
[2018-09-02] MEDS: TOFACITINIB CITRATE 10 MG PO SCH (21:13)
[2018-09-03] MEDS: TOFACITINIB CITRATE 10 MG PO SCH (08:45)
[2018-09-03] MEDS: cloNIDine HCL 0.1 MG TAB PO SCH (08:45)
--- NOTE | 2018-09-03 12:44 | P.PN ---
Subjective Progress Note Date: 09/03/18 Principal diagnosis: Major depressive disorder with psychotic features I zm very anxious and poor sleep, rapid speech and not SI/HI Objective - Vital Signs Vital signs: Vital Signs Temp 98.3 F 09/03/18 06:00 Pulse 112 H 09/03/18 08:56 Resp 18 09/03/18 08:56 BP 141/70 09/03/18 08:56 Pulse Ox 98 09/02/18 03:36 - Labs CBC & Chem 7: 09/02/18 07:50 09/02/18 07:50 Assessment and Plan Assessment: 43-year-old male presents emergency Department via EMS for psychiatric evaluation. Patient reportedly was having bizarre behavior states that he had a trash with a plunger swinging at random objects. Patient states that this was just a show states that he did not smoke any crack cocaine as expected. Patient denies being suicidal or homicidal he does have a history of alcohol and drug abuse. Patient states he also has ongoing ulcerative colitis. Patient denies any recent alcohol use. Patient offers no complaints. Patient does not psychiatric help. - Related Data Home Medications Medication Instructions Recorded Confirmed Citalopram Hydrobromide [CeleXA] 10 mg PO DAILY 01/08/17 09/01/18 Tofacitinib Citrate [Xeljanz] 10 mg PO BID 03/25/17 09/01/18 Cholecalciferol [Vitamin D3] 5,000 unit PO DAILY 09/01/18 09/01/18 Ferrous Sulfate [Feosol] 325 mg PO DAILY 09/01/18 09/01/18 Allergies Allergy/AdvReac Type Severity Reaction Status Date / Time No Known Allergies Allergy Verified 09/02/18 03:16 College- no graduation Legal:DUI, drunkiness, 4 felonies never : 8 children by 6 women Mental Status Examination - General Appearance: [casual, appears stated age, Speech/Language: [ rapid, rambled, mumbling, expressive, loud Attitude/Behavior: [cooperative Mood: [ depressed, anxious, irritable, angry, fearful, hopelessness Affect: [lively, blunted constricted] Orientation: [time, person, place situation] Thought Content: [wnl, denies delusions, obsessions, phobias, other] Risk Factors: [Denies suicidal (ideations, plan), and/or Homicidal (ideations, plan), other] Perception: [wnl,??? hallucinations (auditory, visual, tactile), other] Thought Processes: [ concrete, circumstantial, tangential] Concentration/Attention Span: [wnl, impaired] [Per observation and interview with the patient] Recent Memory: [wnl] [0, 1, 2 or 3 out of 3 in 3 minutes] Remote Memory: [wnl, ] [past events, as related history] Intelligence: [ average [based on history, based on vocabulary, syntax, grammar , and content] Judgement: [good] [per patient's behavior/history of present illness] Insight: [good] [understanding severity of illness/history of present illness] Admitting Diagnosis: [Major depressive disorder with psychotic features] Initial Plan of Care: [He is admitted involuntary to the 3 [facility]. mental health unit [facility] for acute psychosis and major depressive disorder. He will be placed on 15 minute checks and typical [facility] protocol. He will be evaluated by medicine, psychiatry, nursing staff, social work and occupational therapy. He'll be integrated in [facility] therapeutic environment whereby he'll be expected to go to groups and take his medication as indicated. He will be started on Prolixin 5 mg by mouth daily and desipramine 50 mg by mouth daily at bedtime, along with Catapres 0.1 mg twice a day.Increase prolixin 7.5 mg po qhs, desipramine 75 mg po qhs and increase catapres 0.2 mg po bid] (1) Major depressive disorder with psychotic features Current Visit: Yes Status: Acute Priority: High Code(s): F32.3 - MAJOR DEPRESSV DISORD, SINGLE EPSD, SEVERE W PSYCH FEATURES SNOMED Code(s): 62846530 Time with Patient: Greater than 30
[2018-09-03] MEDS: FERROUS SULFATE 325 MG TAB PO SCH (17:37)
[2018-09-03] MEDS: LORazepam 1 MG TAB PO PRN (18:32)
[2018-09-03] MEDS ORDERED: DESIPRAMINE 25 MG TAB PO SCH (21:00)
[2018-09-03] MEDS: XELJANZ PO SCH (21:26)
[2018-09-03] MEDS: cloNIDine HCL 0.2 MG TAB PO SCH (21:27)
[2018-09-04] MEDS: CHOLECALCIFEROL 1,000 UNIT TAB PO SCH (08:19)
[2018-09-04] MEDS: FERROUS SULFATE 325 MG TAB PO SCH ×2 (08:19→18:39)
[2018-09-04] MEDS: XELJANZ PO SCH ×2 (08:19→21:39)
[2018-09-04] MEDS: cloNIDine HCL 0.2 MG TAB PO SCH ×2 (08:20→21:39)
[2018-09-04] MEDS: LORazepam 1 MG TAB PO PRN ×2 (11:27→19:23)
--- NOTE | 2018-09-04 12:50 | P.PN ---
Subjective Progress Note Date: 09/04/18 Principal diagnosis: Major depressive disorder with psychotic features I zm very anxious and poor sleep, rapid speech and not SI/HI Objective - Vital Signs Vital signs: Vital Signs Temp 98.3 F 09/04/18 10:17 Pulse 119 H 09/04/18 10:17 Resp 18 09/04/18 10:17 BP 98/63 09/04/18 10:17 Pulse Ox 98 09/02/18 03:36 - Labs CBC & Chem 7: 09/02/18 07:50 09/02/18 07:50 Assessment and Plan Assessment: 43-year-old male presents emergency Department via EMS for psychiatric evaluation. Patient reportedly was having bizarre behavior states that he had a trash with a plunger swinging at random objects. Patient states that this was just a show states that he did not smoke any crack cocaine as expected. Patient denies being suicidal or homicidal he does have a history of alcohol and drug abuse. Patient states he also has ongoing ulcerative colitis. Patient denies any recent alcohol use. Patient offers no complaints. Patient does not psychiatric help. - Related Data Home Medications Medication Instructions Recorded Confirmed Citalopram Hydrobromide [CeleXA] 10 mg PO DAILY 01/08/17 09/01/18 Tofacitinib Citrate [Xeljanz] 10 mg PO BID 03/25/17 09/01/18 Cholecalciferol [Vitamin D3] 5,000 unit PO DAILY 09/01/18 09/01/18 Ferrous Sulfate [Feosol] 325 mg PO DAILY 09/01/18 09/01/18 Allergies Allergy/AdvReac Type Severity Reaction Status Date / Time No Known Allergies Allergy Verified 09/02/18 03:16 College- no graduation Legal:DUI, drunkiness, 4 felonies never : 8 children by 6 women Mental Status Examination - General Appearance: [casual, appears stated age, Speech/Language: [ rapid, rambled, mumbling, expressive, loud Attitude/Behavior: [cooperative Mood: [ depressed, anxious, irritable, angry, fearful, hopelessness Affect: [lively, blunted constricted] Orientation: [time, person, place situation] Thought Content: [wnl, denies delusions, obsessions, phobias, other] Risk Factors: [Denies suicidal (ideations, plan), and/or Homicidal (ideations, plan), other] Perception: [wnl,denies hallucinations (auditory, visual, tactile), other] Thought Processes: [ concrete, circumstantial, tangential] Concentration/Attention Span: [wnl, impaired] [Per observation and interview with the patient] Recent Memory: [wnl] [3 out of 3 in 3 minutes] Remote Memory: [wnl, ] [past events, as related history] Intelligence: [ average [based on history, based on vocabulary, syntax, grammar , and content] Judgement: [good] [per patient's behavior/history of present illness] Insight: [good] [understanding severity of illness/history of present illness] Admitting Diagnosis: [Major depressive disorder with psychotic features] Initial Plan of Care: [He is admitted involuntary to the 3 [facility]. mental health unit [facility] for acute psychosis and major depressive disorder. He will be placed on 15 minute checks and typical [facility] protocol. He will be evaluated by medicine, psychiatry, nursing staff, social work and occupational therapy. He'll be integrated in [facility] therapeutic environment whereby he'll be expected to go to groups and take his medication as indicated. He will be started on Prolixin 5 mg by mouth daily and desipramine 50 mg by mouth daily at bedtime, along with Catapres 0.1 mg twice a day.Increase prolixin 10 mg po qhs, desipramine 100 mg po qhs and increase catapres 0.2 mg po bid] (1) Major depressive disorder with psychotic features Current Visit: Yes Status: Acute Priority: High Code(s): F32.3 - MAJOR DEPRESSV DISORD, SINGLE EPSD, SEVERE W PSYCH FEATURES SNOMED Code(s): 85181604 Time with Patient: Greater than 30
[2018-09-04] MEDS ORDERED: BENZTROPINE MESYLATE 1 MG TAB PO ONE (21:00)
[2018-09-04] MEDS: DESIPRAMINE 25 MG TAB PO SCH (21:32)
[2018-09-05 07:04] VITALS: TEMP 98.4
[2018-09-05] MEDS: FERROUS SULFATE 325 MG TAB PO SCH ×2 (08:15→17:09)
[2018-09-05] MEDS: XELJANZ PO SCH ×2 (08:15→20:43)
[2018-09-05] MEDS: LORazepam 1 MG TAB PO PRN (09:28)
[2018-09-05] MEDS: cloNIDine HCL 0.2 MG TAB PO SCH ×2 (09:53→20:42)
[2018-09-05] MEDS: CHOLECALCIFEROL 1,000 UNIT TAB PO SCH (13:51)
--- NOTE | 2018-09-05 14:32 | P.PN ---
Subjective Progress Note Date: 09/05/18 Principal diagnosis: Major depressive disorder with psychotic features I am very anxious and poor sleep, rapid speech and not SI/HI 09/05/2018: He remains still anxious in appearance had better sleep last night and did sign a deferral for treatment with [facility] today Objective - Vital Signs Vital signs: Vital Signs Temp 98.4 F 09/05/18 07:03 Pulse 116 H 09/05/18 09:20 Resp 16 09/05/18 07:03 BP 104/59 09/05/18 09:20 Pulse Ox 98 09/02/18 03:36 - Labs CBC & Chem 7: 09/02/18 07:50 09/02/18 07:50 Assessment and Plan Assessment: 43-year-old male presents emergency Department via EMS for psychiatric evaluation. Patient reportedly was having bizarre behavior states that he had a trash with a plunger swinging at random objects. Patient states that this was just a show states that he did not smoke any crack cocaine as expected. Patient denies being suicidal or homicidal he does have a history of alcohol and drug abuse. Patient states he also has ongoing ulcerative colitis. Patient denies any recent alcohol use. Patient offers no complaints. Patient does not psychiatric help. - Related Data Home Medications Medication Instructions Recorded Confirmed Citalopram Hydrobromide [CeleXA] 10 mg PO DAILY 01/08/17 09/01/18 Tofacitinib Citrate [Xeljanz] 10 mg PO BID 03/25/17 09/01/18 Cholecalciferol [Vitamin D3] 5,000 unit PO DAILY 09/01/18 09/01/18 Ferrous Sulfate [Feosol] 325 mg PO DAILY 09/01/18 09/01/18 Allergies Allergy/AdvReac Type Severity Reaction Status Date / Time No Known Allergies Allergy Verified 09/02/18 03:16 College- no graduation Legal:DUI, drunkiness, 4 felonies never : 8 children by 6 women Mental Status Examination - General Appearance: [casual, appears stated age, Speech/Language: [ rapid, rambled, mumbling, expressive, loud Attitude/Behavior: [cooperative Mood: [ depressed, anxious, irritable, angry, fearful, hopelessness Affect: [lively, blunted constricted] Orientation: [time, person, place situation] Thought Content: [wnl, denies delusions, obsessions, phobias, other] Risk Factors: [Denies suicidal (ideations, plan), and/or Homicidal (ideations, plan), other] Perception: [wnl,denies hallucinations (auditory, visual, tactile), other] Thought Processes: [ concrete, circumstantial, tangential] Concentration/Attention Span: [wnl, impaired] [Per observation and interview with the patient] Recent Memory: [wnl] [3 out of 3 in 3 minutes] Remote Memory: [wnl, ] [past events, as related history] Intelligence: [ average [based on history, based on vocabulary, syntax, grammar , and content] Judgement: [good] [per patient's behavior/history of present illness] Insight: [good] [understanding severity of illness/history of present illness] Admitting Diagnosis: [Major depressive disorder with psychotic features] Initial Plan of Care: [He is admitted involuntary to the 3 [facility]. mental health unit [facility] for acute psychosis and major depressive disorder. He will be placed on 15 minute checks and typical [facility] protocol. He will be evaluated by medicine, psychiatry, nursing staff, social work and occupational therapy. He'll be integrated in [facility] therapeutic environment whereby he'll be expected to go to groups and take his medication as indicated. He will be started on Prolixin 5 mg by mouth daily and desipramine 50 mg by mouth daily at bedtime, along with Catapres 0.1 mg twice a day.Increase prolixin 10 mg po qhs, desipramine 100 mg po qhs and increase catapres 0.2 mg po bid 09/05/2018: Discontinued his Ativan and added Cogentin 2 mg twice a day. Anxiety becoming from the fact that his Catapres was not given which is not for blood pressure but for his withdrawals and that he is continuing to use Ativan which I have no plans on discharging him on any benzodiazepine. Discharge to be tomorrow on 09/06/2018] (1) Major depressive disorder with psychotic features Current Visit: Yes Status: Acute Priority: High Code(s): F32.3 - MAJOR DEPRESSV DISORD, SINGLE EPSD, SEVERE W PSYCH FEATURES SNOMED Code(s): 22783283 Time with Patient: Less than 30
[2018-09-05 15:22] LABS: Albumin 3.4 g/dL (3.5-5.0); Calcium 9.1 mg/dL (8.4-10.2); Total Bilirubin 0.3 mg/dL (0.2-1.3); Total Protein 5.9 g/dL (6.3-8.2)
[2018-09-05] MEDS: BENZTROPINE MESYLATE 1 MG TAB PO SCH (20:42)
[2018-09-05] MEDS: DESIPRAMINE 25 MG TAB PO SCH (20:42)
[2018-09-06] MEDS: cloNIDine HCL 0.2 MG TAB PO SCH (08:21)
[2018-09-06] MEDS: FERROUS SULFATE 325 MG TAB PO SCH (08:21)
[2018-09-06] MEDS: XELJANZ PO SCH (08:21)
[2018-09-06] MEDS: BENZTROPINE MESYLATE 1 MG TAB PO SCH (08:21)
[2018-09-06 08:25] VITALS: BP 124/65; PULSE 124; RESP 16
[2018-09-06] MEDS: CHOLECALCIFEROL 1,000 UNIT TAB PO SCH (11:42)
--- NOTE | 2018-09-06 12:02 | P.DS ---
Providers Date of admission: 09/02/18 02:48 Expected date of discharge: 09/06/18 Attending physician: Deshawn Lares DO Consults: 09/02/18 02:54 Consult Physician Routine Consulting Provider: Marcio Gomez Consult Reason/Comments: H&P for MH asssessment Do you want consulting provider notified?: Yes, Notify in am Primary care physician: Ezequiel Salinas - Discharge Diagnosis(es) (1) Major depressive disorder with psychotic features 43-year-old male presents emergency Department via EMS for psychiatric evaluation. Patient reportedly was having bizarre behavior states that he had a trash with a plunger swinging at random objects. Patient states that this was just a show states that he did not smoke any crack cocaine as expected. Patient denies being suicidal or homicidal he does have a history of alcohol and drug abuse. Patient states he also has ongoing ulcerative colitis. Patient denies any recent alcohol use. Patient offers no complaints. Patient does not psychiatric help. - Related Data Home Medications Medication Instructions Recorded Confirmed Citalopram Hydrobromide [CeleXA] 10 mg PO DAILY 01/08/17 09/01/18 Tofacitinib Citrate [Xeljanz] 10 mg PO BID 03/25/17 09/01/18 Cholecalciferol [Vitamin D3] 5,000 unit PO DAILY 09/01/18 09/01/18 Ferrous Sulfate [Feosol] 325 mg PO DAILY 09/01/18 09/01/18 Allergies Allergy/AdvReac Type Severity Reaction Status Date / Time No Known Allergies Allergy Verified 09/02/18 03:16 Past Medical History Past Medical History: No Reported History Additional Past Medical History / Comment(s): Ulcerative colitis, anxiety, GI bleed History of Any Multi-Drug Resistant Organisms: C-DIFF, MRSA Date of last positivie culture/infection: 2015 MDRO Source:: leg wound Past Surgical History: No Surgical Hx Reported Past Anesthesia/Blood Transfusion Reactions: No Reported Reaction Past Psychological History: Anxiety Smoking Status: Never smoker Past Alcohol Use History: Rare Past Drug Use History: None Reported - Past Family History Mother Family Medical History: COPD, Diabetes Mellitus, Thyroid Disorder Additional Family Medical History / Comment(s): Schizophrenia Father History Unknown: Yes College- no graduation Legal:DUI, drunkiness, 4 felonies never : 8 children by 6 women Current Visit: Yes Status: Acute Priority: Low Hospital Course: Plan of Care: [He is admitted involuntary to the 3 W. mental health unit [facility] for acute psychosis and major depressive disorder. He signed a referral on 09/05/2018 with a family meeting scheduled for 2018 and will be discharged after that. He will be placed on 15 minute checks and typical [facility] protocol. He will be evaluated by medicine, psychiatry , nursing staff, social work and occupational therapy. He'll be integrated in [facility] therapeutic environment whereby he'll be expected to go to groups and take his medication as indicated. He will be started on Prolixin 5 mg by mouth daily and desipramine 50 mg by mouth daily at bedtime, along with Catapres 0.1 mg twice a day.Increase prolixin 10 mg po qhs, desipramine 100 mg po qhs and increase catapres 0.2 mg po bid 09/05/2018: Discontinued his Ativan and added Cogentin 2 mg twice a day. Anxiety becoming from the fact that his Catapres was not given which is not for blood pressure but for his withdrawals and that he is continuing to use Ativan which I have no plans on discharging him on any benzodiazepine. Discharge Medication List Cholecalciferol [Vitamin D3] 5,000 unit PO DAILY 09/01/18 [History] Benztropine Mesylate [Cogentin] 2 mg PO BID 30 Days #60 tab 09/06/18 [Rx] Cholecalciferol [Vitamin D3] 1,000 unit PO DAILY@1200 tab 09/06/18 [Rx] Desipramine [Norpramin] 100 mg PO HS 30 Days #120 tab 09/06/18 [Rx] Ferrous Sulfate [Iron (65 MG Elemental)] 325 mg PO BID-W/MEALS tab 09/06/18 [Rx ] Xeljanz 10 mg PO BID 09/06/18 [Rx] cloNIDine HCL [Catapres] 0.2 mg PO BID 30 Days #60 tab 09/06/18 [Rx] fluPHENAZine [Prolixin] 10 mg PO 2100 30 Days #60 tab 09/06/18 [Rx] Mental status examination time of discharge: The patient presents alert, pleasant, and cooperative. There calmly seated without any agitated behavior. [He] reports that [his] mood is good. Affect is congruent and euthymic. [He] deny having any suicidal or homicidal ideation intent or plan. [He] denies any auditory or visual hallucinations. There is no evidence of any delusional thought content. [His] thought process is linear and goal-directed. [His] speech is fluent and nonpressured. [His] memory and concentration is grossly intact for the purposes of this session. Patient Condition at Discharge: Stable Plan - Discharge Summary Discharge Rx Participant: Yes New Discharge Prescriptions: New Benztropine Mesylate [Cogentin] 2 mg PO BID 30 Days #60 tab Cholecalciferol [Vitamin D3] 1,000 unit PO DAILY@1200 tab cloNIDine HCL [Catapres] 0.2 mg PO BID 30 Days #60 tab Desipramine [Norpramin] 100 mg PO HS 30 Days #120 tab Ferrous Sulfate [Iron (65 MG Elemental)] 325 mg PO BID-W/MEALS tab fluPHENAZine [Prolixin] 10 mg PO 2100 30 Days #60 tab Xeljanz 10 mg PO BID Continue Cholecalciferol [Vitamin D3] 5,000 unit PO DAILY Discontinued Citalopram Hydrobromide [CeleXA] 10 mg PO DAILY Tofacitinib Citrate [Xeljanz] 10 mg PO BID Ferrous Sulfate [Feosol] 325 mg PO DAILY Discharge Medication List Cholecalciferol [Vitamin D3] 5,000 unit PO DAILY 09/01/18 [History] Benztropine Mesylate [Cogentin] 2 mg PO BID 30 Days #60 tab 09/06/18 [Rx] Cholecalciferol [Vitamin D3] 1,000 unit PO DAILY@1200 tab 09/06/18 [Rx] Desipramine [Norpramin] 100 mg PO HS 30 Days #120 tab 09/06/18 [Rx] Ferrous Sulfate [Iron (65 MG Elemental)] 325 mg PO BID-W/MEALS tab 09/06/18 [Rx ] Xeljanz 10 mg PO BID 09/06/18 [Rx] cloNIDine HCL [Catapres] 0.2 mg PO BID 30 Days #60 tab 09/06/18 [Rx] fluPHENAZine [Prolixin] 10 mg PO 2100 30 Days #60 tab 09/06/18 [Rx] Follow up Appointment(s)/Referral(s): [facility] [Outside] - 09/10/18 1:00 pm ([place]) Ezequiel Salinas MD [Primary Care Provider] - 1-2 days Patient Instructions/Handouts: Mood Disorders (DC), Depression (DC), Help Prevent Suicide (DC) Activity/Diet/Wound Care/Special Instructions: Activity and diet as tolerated. Avoid the use of street drugs and alcohol. Take all medications as prescribed. When you are in need of refills on your medications please contact your medical provider and/or outpatient psychiatrist to have this done. Please go to scheduled outpatient appointment for aftercare treatment. If symptoms return or become worse, call the crisis line at [phone] and/or go to the nearest emergency room for evaluation. Discharge Disposition: HOME SELF-CARE
== END 2018-09-06 14:32 | disposition home or self-care (01) | DRG 885 ==
LOC: EC 09:02 → 3MHU 09-02 02:48
PROVIDERS: ADMIT Psychiatry & Neurology Psychiatry; ATTEND Psychiatry & Neurology Psychiatry
DX: F32.3 Major depressive disorder, single episode, severe with psychotic features (principal); K51.90 Ulcerative colitis, unspecified, without complications; F41.9 Anxiety disorder, unspecified; R45.6 Violent behavior; Z79.899 Other long term (current) drug therapy; Z87.891 Personal history of nicotine dependence; Z91.19 Patient's noncompliance with other medical treatment and regimen; Z86.14 Personal history of Methicillin resistant Staphylococcus aureus infection; Z81.8 Family history of other mental and behavioral disorders; Z82.5 Family history of asthma and other chronic lower respiratory diseases; Z83.3 Family history of diabetes mellitus; Z83.49 Family history of other endocrine, nutritional and metabolic diseases
CPT/HCPCS: 80053; 80061; 80306; 82075; 83036; 84443; 85025; 96372; 99285

== ENCOUNTER 2018-09-24 00:30 | Emergency (ER) | payer MEDICARE, OTHER ==
[2018-09-24] MEDS ORDERED: HYDROmorphone 1 MG/ML 1 ML SYRINGE IVP STA (01:24)
[2018-09-24] MEDS ORDERED: SODIUM CHLORIDE 0.9% 1,000 ML IV STA (01:24)
[2018-09-24] MEDS ORDERED: ONDANSETRON 4 MG/2 ML VIAL IVP STA (01:24)
[2018-09-24 01:51] LABS: Basophils # (A) 0.1 k/uL (0-0.2); Basophils % (A) 1 %; Eosinophils # (A) 0.3 k/uL (0-0.7); Eosinophils % (A) 4 %; HCT 42.9 % (39.0-53.0); HGB 13.5 gm/dL (13.0-17.5); Lymphocytes % (A) 10 %; MCH 28.1 pg (25.0-35.0); MCHC 31.5 g/dL (31.0-37.0); MCV 89.3 fL (80.0-100.0); Mean Platelet Volume 6.2; Monocytes % (A) 10 %; Neutrophils # (A) 6.8 k/uL (1.3-7.7); Neutrophils % (A) 73 %; Platelet Count 506 k/uL (150-450); RBC 4.81 m/uL (4.30-5.90); RDW 15.7 % (11.5-15.5); WBC 9.3 k/uL (3.8-10.6)
[2018-09-24 02:03] LABS: ALT 35 U/L (21-72); AST 18 U/L (17-59); Albumin 3.6 g/dL (3.5-5.0); Alkaline Phosphatase 74 U/L (38-126); Amylase 61 U/L (30-110); Anion Gap 7 mmol/L; Blood Urea Nitrogen 16 mg/dL (9-20); Calcium 9.1 mg/dL (8.4-10.2); Carbon Dioxide 26 mmol/L (22-30); Chloride 105 mmol/L (98-107); Glucose 96 mg/dL (74-99); Lipase 85 U/L (23-300); Potassium 4.4 mmol/L (3.5-5.1); Sodium 138 mmol/L (137-145); Total Bilirubin 0.5 mg/dL (0.2-1.3); Total Protein 6.4 g/dL (6.3-8.2)
[2018-09-24 02:17] LABS: Appearance,Urine Turbid (Clear); Bacteria,Urine Many /hpf; Bilirubin,Urine Negative (Negative); Blood,Urine Trace (Negative); Color,Urine Yellow; Glucose,Urine (UA) Negative (Negative); Ketones,Urine Trace (Negative); Leukocyte Esterase,Urine Negative (Negative); Mucus,Urine Many /hpf; Nitrite,Urine Negative (Negative); PH, Urine 6.5 (5.0-8.0); Protein,Urine 3+ (Negative); RBC,Urine 68 /hpf (0-5); Specific Gravity,Urine 1.027 (1.001-1.035); Sperm,Urine Many /hpf; Squamous Epithelial Cell,Urine 8 /hpf (0-4); Urobilinogen,Urine <2.0 mg/dL (<2.0); WBC,Urine 7 /hpf (0-5)
--- NOTE | 2018-09-24 02:24 | CT ---
EXAM: CT Abdomen and Pelvis Without Intravenous Contrast CLINICAL HISTORY: ITS.REASON CT Reason: abdominal pain TECHNIQUE: Axial computed tomography images of the abdomen and pelvis without intravenous contrast. CTDI is 8 mGy and DLP is 447 mGy-cm. This CT exam was performed using one or more of the following dose reduction techniques: automated exposure control, adjustment of the mA and/or kV according to patient size, and/or use of iterative reconstruction technique. COMPARISON: CT abdomen 12/22/16, 07/20/16 FINDINGS: Lung bases: No mass. No consolidation. ABDOMEN: Liver: Unremarkable. Gallbladder and bile ducts: Unremarkable. Pancreas: Unremarkable. No ductal dilation. Spleen: Unremarkable. Adrenals: Unremarkable. Kidneys and ureters: Mild right hydroureteronephrosis with no obstructive process. No obstructing stones. Stomach and bowel: No bowel obstruction. Thickened descending colon with mild stranding. Fatty infiltration of the distal colon and rectal wall. PELVIS: Appendix: Unremarkable. Bladder: Tiny 1 mm stone near the right UVJ. No stones. Reproductive: Unremarkable. ABDOMEN and PELVIS: Intraperitoneal space: Unremarkable. Bones/joints: No acute fractures. Soft tissues: Unremarkable. Vasculature: No abdominal aortic aneurysm. Lymph nodes: No enlarged lymph nodes. IMPRESSION: 1. Thickened and mildly inflamed descending colon is seen, similar to 2016 and may represent infectious/inflammatory colitis. No bowel obstruction. 2. Mildly dilated right collecting system with no definite stone identified within the ureter. However there is a punctate 1 mm stone within the bladder near the right UVJ, possibly representing a recently passed stone. <MYCVCSECTION> [employer] 09/24/18 02:51 Verify Receipt Verified receipt with Yady in the ER, report for Ivis Puentes NP on 09/24 02:51 (-05:00)
[2018-09-24] MEDS ORDERED: TAMSULOSIN 0.4 MG CAP.ER.24H PO STA (02:41)
[2018-09-24] MEDS ORDERED: PHENAZOPYRIDINE 100 MG TAB PO STA (02:41)
[2018-09-24] MEDS ORDERED: HYDROcodone/APAP 5-325MG 1 EACH TAB PO STA (02:48)
[2018-09-24] MEDS ORDERED: HYDROmorphone 2 MG/ML 1 ML SYRINGE IVP STA (02:48)
--- NOTE | 2018-09-24 02:51 | ED ---
Abdominal Pain HPI - General Source: patient Mode of arrival: ambulatory Limitations: no limitations <Ivis Marquez - Last Filed: 09/24/18 05:06> <Cira De Leon - Last Filed: 09/25/18 07:58> - General Chief Complaint: Abdominal Pain Stated Complaint: flank pain Time Seen by Provider: 09/24/18 00:55 - History of Present Illness Initial Comments: 43-year-old male patient presents to the emergency department today for evaluation of right flank pain that radiates into the right lower quadrant abdomen. Patient states pain started couple of hours prior to arrival. States the pain is sharp and stabbing in nature and quite severe. States he has been nauseated but has not vomited with this. Patient states he frequently gets the urge to urinate however only goes small amounts at a time. Patient denies any history of similar symptoms. He has not had any fevers or chills with this. Denies any constipation or diarrhea. Denies any history of abdominal surgeries. Patient denies any recent rash, shortness breath, chest pain, numbness, tingling, dizziness, weakness, headache, visual changes, or any other complaints. (Ivis Marquez) - Related Data Home Medications Medication Instructions Recorded Confirmed Cholecalciferol [Vitamin D3] 5,000 unit PO DAILY 09/01/18 09/01/18 Previous Rx's Medication Instructions Recorded Benztropine Mesylate [Cogentin] 2 mg PO BID 30 Days #60 tab 09/06/18 Cholecalciferol [Vitamin D3] 1,000 unit PO DAILY@1200 tab 09/06/18 Desipramine [Norpramin] 100 mg PO HS 30 Days #120 tab 09/06/18 Ferrous Sulfate [Iron (65 MG 325 mg PO BID-W/MEALS tab 09/06/18 Elemental)] Xeljanz 10 mg PO BID 09/06/18 cloNIDine HCL [Catapres] 0.2 mg PO BID 30 Days #60 tab 09/06/18 fluPHENAZine [Prolixin] 10 mg PO 2100 30 Days #60 tab 09/06/18 Phenazopyridine [Pyridium] 100 mg PO TID #9 tablet 09/24/18 Tamsulosin HCl [Flomax] 0.4 mg PO DAILY #7 cap 09/24/18 Allergies Allergy/AdvReac Type Severity Reaction Status Date / Time No Known Allergies Allergy Verified 09/24/18 00:39 Review of Systems ROS Other: All systems not noted in ROS Statement are negative. <Ivis Marquez - Last Filed: 09/24/18 05:06> ROS Other: All systems not noted in ROS Statement are negative. <Cira De Leon Karyn - Last Filed: 09/25/18 07:58> ROS Statement: Those systems with pertinent positive or pertinent negative responses have been documented in the HPI. Past Medical History Past Medical History: No Reported History Additional Past Medical History / Comment(s): Ulcerative colitis, anxiety, GI bleed History of Any Multi-Drug Resistant Organisms: C-DIFF, MRSA Date of last positivie culture/infection: 2016 MDRO Source:: leg wound Past Surgical History: No Surgical Hx Reported Past Anesthesia/Blood Transfusion Reactions: No Reported Reaction Past Psychological History: Anxiety Smoking Status: Former smoker Past Alcohol Use History: Rare Past Drug Use History: None Reported - Past Family History Mother Family Medical History: COPD, Diabetes Mellitus, Thyroid Disorder Additional Family Medical History / Comment(s): Schizophrenia Father History Unknown: Yes <Ivis Marquez - Last Filed: 09/24/18 05:06> General Exam Limitations: no limitations General appearance: alert, in no apparent distress, other (This is a well- developed, well-nourished adult male patient in no acute distress. Vital signs upon presentation are temperature 98.8F, pulse 107, respirations 20, blood pressure 138/89, pulse ox 96% on room air.) Eye exam: Present: normal appearance, PERRL, EOMI. Absent: scleral icterus, conjunctival injection, periorbital swelling ENT exam: Present: normal exam, normal oropharynx, mucous membranes moist Respiratory exam: Present: normal lung sounds bilaterally. Absent: respiratory distress, wheezes, rales, rhonchi, stridor Cardiovascular Exam: Present: regular rate, normal rhythm, normal heart sounds. Absent: systolic murmur, diastolic murmur, rubs, gallop, clicks GI/Abdominal exam: Present: soft, tenderness (Right lower quadrant tenderness), normal bowel sounds. Absent: distended, guarding, rebound, rigid Back exam: Present: normal inspection, CVA tenderness (R). Absent: CVA tenderness (L) Neurological exam: Present: alert, oriented X3, CN II-XII intact Psychiatric exam: Present: normal affect, normal mood Skin exam: Present: warm, dry, intact, normal color. Absent: rash <Ivis Marquez - Last Filed: 09/24/18 05:06> Vital Signs 09/24/18 09/24/18 00:37 03:13 Temperature 98.8 F 98.5 F Pulse Rate 107 H 93 Respiratory 20 18 Rate Blood Pressure 138/89 98/65 O2 Sat by Pulse 96 98 Oximetry Medical Decision Making - Lab Data Result diagrams: 09/24/18 01:05 09/24/18 01:05 - Radiology Data Radiology results: report reviewed, image reviewed <Ivis Marquez - Last Filed: 09/24/18 05:06> - Lab Data Result diagrams: 09/24/18 01:05 09/24/18 01:05 <Cira De Leon - Last Filed: 09/25/18 07:58> - Medical Decision Making 43-year-old male patient presented to the emergency department today for evaluation of right flank pain radiating to the right lower abdomen. Physical examination did reveal some mild right lower quadrant tenderness. Urinalysis did reveal elevated red cells and white cells. This has been sent for culture. Labs reviewed and are unremarkable. CT abdomen and pelvis was obtained without contrast. It showed evidence of recently passed kidney stone with a 1 mm stone in the bladder and a prominent right renal collecting system. Patient was given IV fluids, pain medication. He is feeling better at time of discharge. He was started on Flomax and Pyridium. Instructed to follow-up with urologist for further evaluation as soon as possible. Return parameters were discussed in detail. He verbalizes understanding and agrees with this plan. (Ivis Marquez) I was available for consultation in the emergency department. The history and physical exam were done by the midlevel provider. I was consulted for this patient's care. I reviewed the case with the midlevel provider and based on their presentation of the patient, I agree with the assessment, medical decision making and plan of care as documented. (Cira De Leon) - Lab Data Lab Results 09/24/18 09/24/18 09/24/18 Range/Units 01:05 01:05 01:05 WBC 9.3 (3.8-10.6) k/uL RBC 4.81 (4.30-5.90) m/uL Hgb 13.5 (13.0-17.5) gm/dL Hct 42.9 (39.0-53.0) % MCV 89.3 (80.0-100.0) fL MCH 28.1 (25.0-35.0) pg MCHC 31.5 (31.0-37.0) g/dL RDW 15.7 H (11.5-15.5) % Plt Count 506 H (150-450) k/uL Neutrophils % 73 % Lymphocytes % 10 % Monocytes % 10 % Eosinophils % 4 % Basophils % 1 % Neutrophils # 6.8 (1.3-7.7) k/uL Lymphocytes # 1.0 (1.0-4.8) k/uL Monocytes # 1.0 (0-1.0) k/uL Eosinophils # 0.3 (0-0.7) k/uL Basophils # 0.1 (0-0.2) k/uL Sodium 138 (137-145) mmol/L Potassium 4.4 (3.5-5.1) mmol/L Chloride 105 (98-107) mmol/L Carbon Dioxide 26 (22-30) mmol/L Anion Gap 7 mmol/L BUN 16 (9-20) mg/dL Creatinine 1.10 (0.66-1.25) mg/dL Est GFR (CKD-EPI)AfAm >90 (>60 ml/min/1.73 sqM) Est GFR (CKD-EPI)NonAf 83 (>60 ml/min/1.73 sqM) Glucose 96 (74-99) mg/dL Calcium 9.1 (8.4-10.2) mg/dL Total Bilirubin 0.5 (0.2-1.3) mg/dL AST 18 (17-59) U/L ALT 35 (21-72) U/L Alkaline Phosphatase 74 (38-126) U/L Total Protein 6.4 (6.3-8.2) g/dL Albumin 3.6 (3.5-5.0) g/dL Amylase 61 (30-110) U/L Lipase 85 (23-300) U/L Urine Color Yellow Urine Appearance Turbid (Clear) Urine pH 6.5 (5.0-8.0) Ur Specific [place] 1.027 (1.001-1.035) Urine Protein 3+ H (Negative) Urine Glucose (UA) Negative (Negative) Urine Ketones Trace H (Negative) Urine Blood Trace H (Negative) Urine Nitrite Negative (Negative) Urine Bilirubin Negative (Negative) Urine Urobilinogen <2.0 (<2.0) mg/dL Ur Leukocyte Esterase Negative (Negative) Urine RBC 68 H (0-5) /hpf Urine WBC 7 H (0-5) /hpf Ur Squamous Epith Cells 8 H (0-4) /hpf Urine Bacteria Many H (None) /hpf Urine Mucus Many H (None) /hpf Urine Sperm Many H (None) /hpf - Radiology Data CT abdomen and pelvis without contrast was obtained. Report was reviewed in its entirety. Impression by Dr. Wells shows mildly inflamed descending colon is seen similar to 2016 he may represent infectious versus inflammatory colitis. No bowel obstruction. Mildly dilated right collecting system with no definite stone identified within the ureter. However there is a punctate 1 mm stone within the bladder Right UVJ, possibly representing a recently passed stone. (Ivis Marquez) Disposition Is patient prescribed a controlled substance at d/c from ED?: No Time of Disposition: 02:51 <Ivis Marquez - Last Filed: 09/24/18 05:06> <Cira De Leon - Last Filed: 09/25/18 07:58> Clinical Impression: Kidney stone Disposition: HOME SELF-CARE Condition: Good Instructions (If sedation given, give patient instructions): Kidney Stones (ED) Additional Instructions: Increase fluids. Take medication as directed. Follow-up with urologist for further evaluation as soon as possible. Return to the emergency department for any new, worsening, or concerning symptoms. Prescriptions: Phenazopyridine [Pyridium] 100 mg PO TID #9 tablet Tamsulosin HCl [Flomax] 0.4 mg PO DAILY #7 cap Referrals: Ezequiel Salinas MD [Primary Care Provider] - 1-2 days Marco Antonio Obrien MD [STAFF PHYSICIAN] - 1-2 days
[2018-09-24 03:19] VITALS: BP 98/65; PULSE 93; RESP 18; TEMP 98.5
== END 2018-09-24 03:19 | disposition home or self-care (01) ==
LOC: EC 00:30
DX: N21.0 Calculus in bladder (principal); Z87.891 Personal history of nicotine dependence
CPT/HCPCS: 36415; 74176; 80053; 81001; 82150; 83690; 85025; 87086; 96361; 96374; 96375; 96376; 99284

== ENCOUNTER 2019-01-13 14:51 | Emergency (ER) | payer MEDICARE, OTHER ==
[2019-01-13 15:01] VITALS: TEMP 99.4
[2019-01-13] MEDS ORDERED: SODIUM CHLORIDE 0.9% 1,000 ML IV ONE (15:04)
[2019-01-13 15:22] LABS: Basophils % (A) 0 %; Eosinophils # (A) 0.1 k/uL (0-0.7); Eosinophils % (A) 2 %; HCT 42.9 % (39.0-53.0); HGB 13.8 gm/dL (13.0-17.5); Lymphocytes # (A) 0.7 k/uL (1.0-4.8); Lymphocytes % (A) 12 %; MCH 27.6 pg (25.0-35.0); MCHC 32.2 g/dL (31.0-37.0); MCV 85.6 fL (80.0-100.0); Mean Platelet Volume 6.3; Monocytes # (A) 0.5 k/uL (0-1.0); Monocytes % (A) 8 %; Neutrophils # (A) 4.5 k/uL (1.3-7.7); Neutrophils % (A) 75 %; Platelet Count 480 k/uL (150-450); RBC 5.02 m/uL (4.30-5.90); RDW 15.6 % (11.5-15.5)
--- NOTE | 2019-01-13 15:27 | ED ---
General Adult HPI - General Chief complaint: Arrhythmia/Palpitations Stated complaint: High Heart Rate Time Seen by Provider: 01/13/19 15:03 Source: patient, EMS, RN notes reviewed, old records reviewed Mode of arrival: EMS Limitations: no limitations - History of Present Illness Initial comments: 43-year-old male presenting for evaluation of chest tightness and palpitations. Patient admits to abusing large amount of cocaine and methamphetamine appro ximately one hour prior to arrival. He states this was recreational, no suicidal ideation. He has used methamphetamine and cocaine in the past. Denies diaphoresis. Denies any radiating chest pain. Denies abdominal pain nausea vomiting. - Related Data Home Medications Medication Instructions Recorded Confirmed Citalopram Hydrobromide [CeleXA] 10 mg PO HS 01/13/19 01/13/19 Ferrous Sulfate [Iron (65 MG 325 mg PO DAILY 01/13/19 01/13/19 Elemental)] Previous Rx's Medication Instructions Recorded Cholecalciferol [Vitamin D3 (25 1,000 unit PO DAILY@1200 tab 09/06/18 Mcg = 1000 Iu)] Xeljanz 10 mg PO BID 09/06/18 Allergies Allergy/AdvReac Type Severity Reaction Status Date / Time No Known Allergies Allergy Verified 01/13/19 15:11 Review of Systems ROS Statement: Those systems with pertinent positive or pertinent negative responses have been documented in the HPI. ROS Other: All systems not noted in ROS Statement are negative. Past Medical History Past Medical History: No Reported History Additional Past Medical History / Comment(s): Ulcerative colitis, anxiety, GI bleed History of Any Multi-Drug Resistant Organisms: C-DIFF, MRSA Date of last positivie culture/infection: 2015 MDRO Source:: leg wound Past Surgical History: No Surgical Hx Reported Past Anesthesia/Blood Transfusion Reactions: No Reported Reaction Past Psychological History: Anxiety Smoking Status: Former smoker Past Alcohol Use History: Rare Past Drug Use History: Cocaine, Methamphetamine - Past Family History Mother Family Medical History: COPD, Diabetes Mellitus, Thyroid Disorder Additional Family Medical History / Comment(s): Schizophrenia Father History Unknown: Yes General Exam Limitations: no limitations General appearance: alert, in no apparent distress Head exam: Present: atraumatic, normocephalic Eye exam: Present: normal appearance, PERRL ENT exam: Present: normal exam Neck exam: Present: normal inspection, tenderness Respiratory exam: Present: normal lung sounds bilaterally. Absent: respiratory distress, wheezes Cardiovascular Exam: Present: normal rhythm, tachycardia GI/Abdominal exam: Present: soft. Absent: distended, tenderness, guarding Extremities exam: Present: normal inspection, normal capillary refill, pedal edema Back exam: Present: normal inspection, full ROM Neurological exam: Present: alert, oriented X3, CN II-XII intact. Absent: motor sensory deficit Psychiatric exam: Present: normal affect, normal mood Skin exam: Present: warm, dry, intact. Absent: cyanosis, diaphoretic Course Vital Signs 01/13/19 01/13/19 01/13/19 14:54 15:30 16:00 Temperature 99.4 F Pulse Rate 119 H 110 H 114 H Respiratory 18 17 21 Rate Blood Pressure 138/107 134/107 135/99 O2 Sat by Pulse 98 98 98 Oximetry 01/13/19 01/13/19 01/13/19 16:30 17:00 17:30 Temperature Pulse Rate 117 H 121 H 109 H Respiratory 15 24 25 H Rate Blood Pressure 133/102 130/97 129/102 O2 Sat by Pulse 100 100 100 Oximetry 01/13/19 18:30 Temperature Pulse Rate 106 H Respiratory 20 Rate Blood Pressure 128/99 O2 Sat by Pulse 99 Oximetry - Reevaluation(s) Reevaluation #1: 01/13/19 16:02 Patient is ordering [employer] in the emergency department EKG Findings - EKG Comments: EKG Findings:: Sinus tachycardia rate of 121, DE interval 126 QRS duration 86, QTC 440, no ST segment elevation Medical Decision Making - Medical Decision Making Patient with chest tightness, palpitations after doing methamphetamine and cocaine. EKG is sinus tachycardia with no ischemic changes. Patient has normal CBC, normal O2 was, negative troponin. Heart rate down trending. He has no suicidal or homicidal ideation. He is encouraged to abstain from illicit drugs. He can follow up with his primary care physician. - Lab Data Result diagrams: 01/13/19 15:14 01/13/19 15:14 Lab Results 01/13/19 01/13/19 01/13/19 Range/Units 15:14 15:14 15:14 WBC 6.0 (3.8-10.6) k/uL RBC 5.02 (4.30-5.90) m/uL Hgb 13.8 (13.0-17.5) gm/dL Hct 42.9 (39.0-53.0) % MCV 85.6 (80.0-100.0) fL MCH 27.6 (25.0-35.0) pg MCHC 32.2 (31.0-37.0) g/dL RDW 15.6 H (11.5-15.5) % Plt Count 480 H (150-450) k/uL Neutrophils % 75 % Lymphocytes % 12 % Monocytes % 8 % Eosinophils % 2 % Basophils % 0 % Neutrophils # 4.5 (1.3-7.7) k/uL Lymphocytes # 0.7 L (1.0-4.8) k/uL Monocytes # 0.5 (0-1.0) k/uL Eosinophils # 0.1 (0-0.7) k/uL Basophils # 0.0 (0-0.2) k/uL Sodium 140 (137-145) mmol/L Potassium 4.3 (3.5-5.1) mmol/L Chloride 105 (98-107) mmol/L Carbon Dioxide 25 (22-30) mmol/L Anion Gap 10 mmol/L BUN 26 H (9-20) mg/dL Creatinine 1.23 (0.66-1.25) mg/dL Est GFR (CKD-EPI)AfAm 84 (>60 ml/min/1.73 sqM) Est GFR (CKD-EPI)NonAf 73 (>60 ml/min/1.73 sqM) Glucose 97 (74-99) mg/dL Calcium 10.0 (8.4-10.2) mg/dL Total Bilirubin 0.5 (0.2-1.3) mg/dL AST 19 (17-59) U/L ALT 16 L (21-72) U/L Alkaline Phosphatase 80 (38-126) U/L Troponin I <0.012 (0.000-0.034) ng/mL Total Protein 7.1 (6.3-8.2) g/dL Albumin 4.2 (3.5-5.0) g/dL Disposition Clinical Impression: Methamphetamine abuse, Cocaine abuse Disposition: HOME SELF-CARE Condition: Fair Instructions (If sedation given, give patient instructions): Heart Palpitations (ED), Cocaine Abuse (ED), Methamphetamine Abuse (ED) Is patient prescribed a controlled substance at d/c from ED?: No Referrals: Ezequiel Salinas MD [Primary Care Provider] - 1-2 days Time of Disposition: 16:51
[2019-01-13 15:34] LABS: Albumin 4.2 g/dL (3.5-5.0); Potassium 4.3 mmol/L (3.5-5.1); Total Bilirubin 0.5 mg/dL (0.2-1.3); Total Protein 7.1 g/dL (6.3-8.2)
[2019-01-13 19:05] VITALS: BP 128/99; PULSE 106; RESP 20
== END 2019-01-13 19:12 | disposition home or self-care (01) ==
LOC: EC 14:51
DX: F14.10 Cocaine abuse, uncomplicated (principal); F15.10 Other stimulant abuse, uncomplicated; R07.89 Other chest pain; R00.0 Tachycardia, unspecified; R06.02 Shortness of breath; F41.9 Anxiety disorder, unspecified; Z86.14 Personal history of Methicillin resistant Staphylococcus aureus infection; Z87.891 Personal history of nicotine dependence; Z79.899 Other long term (current) drug therapy
CPT/HCPCS: 36415; 80053; 84484; 85025; 93005; 96360; 99285

== ENCOUNTER → 2019-05-02 | Outpatient (CLI) | payer MEDICARE, OTHER ==
[2019-05-02 12:17] LABS: Basophils # (A) 0.1 k/uL (0-0.2); Basophils % (A) 1 %; Eosinophils # (A) 0.4 k/uL (0-0.7); Eosinophils % (A) 5 %; HCT 42.9 % (39.0-53.0); HGB 13.4 gm/dL (13.0-17.5); Hypochromasia Slight; Lymphocytes # (A) 0.8 k/uL (1.0-4.8); Lymphocytes % (A) 12 %; MCH 26.8 pg (25.0-35.0); MCHC 31.3 g/dL (31.0-37.0); MCV 85.8 fL (80.0-100.0); Mean Platelet Volume 5.8; Monocytes # (A) 0.6 k/uL (0-1.0); Monocytes % (A) 8 %; Neutrophils # (A) 5.1 k/uL (1.3-7.7); Neutrophils % (A) 72 %; Platelet Count 499 k/uL (150-450); RBC 4.99 m/uL (4.30-5.90); RDW 14.4 % (11.5-15.5); WBC 7.1 k/uL (3.8-10.6)
[2019-05-02 18:17] LABS: ALT 17 U/L (10-49); AST 18 U/L (14-35); African American GFR (CKD) 121.7 (60.0-200.0); Albumin/Globulin Ratio 2.11 (1.60-3.17); Alkaline Phosphatase 76 U/L (41-126); Amylase 42 U/L (23-121); BUN/Creat Ratio 22.22 Ratio (12.00-20.00); Bilirubin, Conjugated <0.20 mg/dL (0.20-0.40); Carbon Dioxide 28.1 mmol/L (21.6-31.8); Chloride 104 mmol/L (96-109); Chol/HDL Ratio 2.87; Cholesterol 178 mg/dL (0-200); Globulin 1.9 g/dL (1.6-3.3); Glucose 76 mg/dL (70-110); LDL Cholesterol,Calculated 103.6 mg/dL (0.0-131.0); Potassium 4.9 mmol/L (3.5-5.5); Sodium 140 mmol/L (135-145); Total Bilirubin 0.4 mg/dL (0.2-1.2); Total Protein 5.9 g/dL (6.2-8.2)
[2019-05-02 18:49] LABS: Vitamin D 25 Hydroxy 20.5 ng/mL (30.0-100.0)
[2019-05-02 18:52] LABS: Hemoglobin A1C 5.8 % (4.0-6.0)
[2019-05-02 19:08] LABS: Folate, Serum 15.2 ng/mL
== END ==
LOC: LABWHC1 11:27
PROVIDERS: ATTEND Family Medicine
DX: Z00.00 Encounter for general adult medical examination without abnormal findings (principal); E88.9 Metabolic disorder, unspecified; F10.21 Alcohol dependence, in remission; Z51.89 Encounter for other specified aftercare; Z87.898 Personal history of other specified conditions
CPT/HCPCS: 36415; 80053; 80061; 82150; 82248; 82306; 82607; 82746; 83036; 83690; 84439; 84443; 85025

== ENCOUNTER 2019-05-18 20:20 | Emergency (ER) | payer MEDICARE, OTHER ==
[2019-05-18] MEDS ORDERED: cefTRIAXone 1,000 MG VIAL (IM USE) IM STA (21:18)
--- NOTE | 2019-05-18 21:21 | XR ---
EXAMINATION TYPE: XR finger LT DATE OF EXAM: 05/18/2019 COMPARISON: NONE HISTORY: Middle finger laceration TECHNIQUE: 3 views FINDINGS: I see no fracture nor dislocation. Joint spaces are normal. There is no sign of a foreign b linnette. IMPRESSION: Negative left middle finger exam.
[2019-05-18] MEDS ORDERED: CEPHALEXIN 500MG STARTER PACK 4 CAP BTL PO STA (21:24)
--- NOTE | 2019-05-18 21:45 | ED ---
Wound/Laceration HPI - General Chief Complaint: Wound/Laceration Stated Complaint: Finger injury Time Seen by Provider: 05/18/19 20:24 Source: patient Mode of arrival: ambulatory Limitations: no limitations - History of Present Illness Initial Comments: 44-year-old male presenting for crush injury left middle finger. Patient states that yesterday he was using hedge trimmers and he cut the tip of his finger he states he did not feel it needs repair and it presents emergency department. This occurred at 1pm 05/17. Patient states today with the same finger he crushed it within a door. Patient states the pain was severe. Patient denies any limitations in range of motion worst drink. Patient presents most her apartment to ensure there is no fracture. Patient states that vaccinations are up to date. Patient denies numbness tingling or loss of sensation of digit. Remaining ROS (-). upon arrival patient appears well on the signs of acute distr ess. - Related Data Home Medications Medication Instructions Recorded Confirmed Citalopram Hydrobromide [CeleXA] 10 mg PO HS 01/13/19 01/13/19 Ferrous Sulfate [Iron (65 MG 325 mg PO DAILY 01/13/19 01/13/19 Elemental)] Previous Rx's Medication Instructions Recorded Cholecalciferol [Vitamin D3 (25 1,000 unit PO DAILY@1200 tab 09/06/18 Mcg = 1000 Iu)] Xeljanz 10 mg PO BID 09/06/18 Cephalexin [Keflex] 500 mg PO Q12HR 5 Days #10 cap 05/18/19 Allergies Allergy/AdvReac Type Severity Reaction Status Date / Time No Known Allergies Allergy Verified 05/18/19 20:26 Review of Systems ROS Statement: Those systems with pertinent positive or pertinent negative responses have been documented in the HPI. ROS Other: All systems not noted in ROS Statement are negative. Past Medical History Past Medical History: No Reported History Additional Past Medical History / Comment(s): Ulcerative colitis, anxiety, GI bleed History of Any Multi-Drug Resistant Organisms: C-DIFF, MRSA Date of last positivie culture/infection: 2016 MDRO Source:: leg wound Past Surgical History: No Surgical Hx Reported Past Anesthesia/Blood Transfusion Reactions: No Reported Reaction Past Psychological History: Anxiety Smoking Status: Former smoker Past Alcohol Use History: Rare Past Drug Use History: Cocaine, Methamphetamine - Past Family History Mother Family Medical History: COPD, Diabetes Mellitus, Thyroid Disorder Additional Family Medical History / Comment(s): Schizophrenia Father History Unknown: Yes General Exam - General Exam Comments Initial Comments: General: The patient is awake and alert, in no distress, and does not appear acutely ill. Eye: Pupils are equal, round and reactive to light, extra-ocular movements are intact. No nystagmus. There is normal conjunctiva bilaterally. No signs of icterus. Musculoskeletal: Normal ROM, no tenderness. Strength 5/5. Sensation intact. Radial pulses equal bilaterally 2+. Neurological: A&O x 3. CN II-XII intact grossly, There are no obvious motor or sensory deficits. Coordination appears grossly intact. Speech is normal. Skin: Skin is warm and dry and no rashes. >1cm laceration of the middle finger of the left hand, involves lateral aspect of nail plate. No bleeding, healing wound edges that approximate well. No gaping. No redness, active bleeding. Full range of motion at the MCP DIP and deep T joints when isolated. Sensation intact both proximal distal to injury site. Capillary refill < 3 seconds. Psychiatric: Cooperative, appropriate mood & affect, normal judgment. Limitations: no limitations Course Vital Signs 05/18/19 05/18/19 20:22 21:55 Temperature 98.4 F 98.7 F Pulse Rate 103 H 16 L Respiratory 16 100 H Rate Blood Pressure 111/73 112/76 O2 Sat by Pulse 100 100 Oximetry Medical Decision Making - Medical Decision Making 44-year-old male presenting to the emergency department for evaluation of crush injury to left index finger. Imaging studies negative for osseous injury. There is evidence of tendon injury on physical examination full range of motion with strength intact at MCP DIP and PIP joints. Laceration that was sustained over 24 hours ago approximated well and ulnar gaping no active bleeding. Wound was extensively irrigated cleansed with iodine bacitracin bandage applied. Aline ent started on antibiotic to prevent infection. Return parameters and follow-up with primary care provider were discussed patient verbalizes understanding case discussed with him provider Dr. De Leon patient was discharged appearing well Disposition Clinical Impression: Finger laceration, Crush injury to finger Disposition: HOME SELF-CARE Condition: Good Instructions (If sedation given, give patient instructions): Laceration (ED) Additional Instructions: Please use medication as discussed. Please follow-up with family doctor in the next 2 days. Change bandage daily, apply neosporin topically, monitor for signs of infection such as increasing pain, swelling, redness, drainage, fevers-re turn to ER if these arise. Please return to emergency room if the symptoms increase or worsen or for any other concerns. Prescriptions: Cephalexin [Keflex] 500 mg PO Q12HR 5 Days #10 cap Is patient prescribed a controlled substance at d/c from ED?: No Referrals: Rosendo Luis Jr, [Primary Care Provider] - 1-2 days Time of Disposition: 21:44
[2019-05-18 21:56] VITALS: BP 112/76; PULSE 16; RESP 100; TEMP 98.7
== END 2019-05-18 21:53 | disposition home or self-care (01) ==
LOC: EC 20:20
DX: S61.213A Laceration without foreign body of left middle finger without damage to nail, initial encounter (principal); F41.9 Anxiety disorder, unspecified; Z79.899 Other long term (current) drug therapy; Z87.891 Personal history of nicotine dependence; W23.0XXA Caught, crushed, jammed, or pinched between moving objects, initial encounter
CPT/HCPCS: 99283

== ENCOUNTER 2019-06-24 17:39 | Emergency (ER) | payer MEDICARE, OTHER ==
[2019-06-24 17:43] VITALS: RESP 18; TEMP 97.9
[2019-06-24] MEDS ORDERED: NITROGLYCERIN OINT 1 INCH/GM PACKET TOPICAL STA (18:14)
[2019-06-24] MEDS ORDERED: ASPIRIN 81 MG PO STA (18:14)
[2019-06-24] MEDS ORDERED: SODIUM CHLORIDE 0.9% 1,000 ML IV STA (18:14)
--- NOTE | 2019-06-24 18:16 | ED ---
General Adult HPI - General Chief complaint: Chest Pain Stated complaint: chest pressure Time Seen by Provider: 06/24/19 17:52 Source: patient, RN notes reviewed Mode of arrival: ambulatory Limitations: no limitations - History of Present Illness Initial comments: Patient is a pleasant 44-year-old male presenting to the emergency Department with complaints of chest discomfort. Symptoms started yesterday. Patient is having episodes of chest pressure. Episodes are intermittent. Discomfort is somewhat better today. Patient is currently symptom-free. No associated dyspnea, nausea, or diaphoresis. No radiation. Patient did have cardiac evaluation approximately 6 weeks ago including stress test and was told everything looked good. No leg pain or leg swelling. 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 - Related Data Home Medications Medication Instructions Recorded Confirmed Citalopram Hydrobromide [CeleXA] 10 mg PO HS 01/13/19 01/13/19 Ferrous Sulfate [Iron (65 MG 325 mg PO DAILY 01/13/19 01/13/19 Elemental)] Previous Rx's Medication Instructions Recorded Cholecalciferol [Vitamin D3 (25 1,000 unit PO DAILY@1200 tab 09/06/18 Mcg = 1000 Iu)] Xeljanz 10 mg PO BID 09/06/18 Cephalexin [Keflex] 500 mg PO Q12HR 5 Days #10 cap 05/18/19 Allergies Allergy/AdvReac Type Severity Reaction Status Date / Time No Known Allergies Allergy Verified 06/24/19 17:43 Review of Systems ROS Statement: Those systems with pertinent positive or pertinent negative responses have been documented in the HPI. ROS Other: All systems not noted in ROS Statement are negative. Constitutional: Denies: fever Eyes: Denies: eye pain ENT: Denies: ear pain Respiratory: Denies: cough, dyspnea Cardiovascular: Reports: chest pain Endocrine: Denies: fatigue Gastrointestinal: Denies: abdominal pain Genitourinary: Denies: dysuria Musculoskeletal: Denies: back pain Skin: Denies: rash Neurological: Denies: weakness Past Medical History Past Medical History: No Reported History Additional Past Medical History / Comment(s): Ulcerative colitis, anxiety, GI bleed History of Any Multi-Drug Resistant Organisms: C-DIFF, MRSA Date of last positivie culture/infection: 2015 MDRO Source:: leg wound Past Surgical History: No Surgical Hx Reported Past Anesthesia/Blood Transfusion Reactions: No Reported Reaction Past Psychological History: Anxiety Smoking Status: Former smoker Past Alcohol Use History: Rare Past Drug Use History: Cocaine, Methamphetamine - Past Family History Mother Family Medical History: COPD, Diabetes Mellitus, Thyroid Disorder Additional Family Medical History / Comment(s): Schizophrenia Father History Unknown: Yes General Exam Limitations: no limitations General appearance: alert, in no apparent distress Head exam: Present: atraumatic Eye exam: Present: normal appearance, PERRL ENT exam: Present: normal oropharynx Neck exam: Present: normal inspection Respiratory exam: Present: normal lung sounds bilaterally. Absent: chest wall tenderness Cardiovascular Exam: Present: regular rate, normal rhythm Expanded Peripheral pulses: 2+: Radial (R), Radial (L), Dorsalis Pedis (R), Dorsalis Pedis (L) GI/Abdominal exam: Present: soft. Absent: tenderness Extremities exam: Present: normal inspection. Absent: pedal edema, calf tenderness Neurological exam: Present: alert Psychiatric exam: Present: normal affect, normal mood Skin exam: Present: normal color Course Vital Signs 06/24/19 06/24/19 06/24/19 17:41 18:07 18:10 Temperature 97.9 F Pulse Rate 111 H 99 Respiratory 18 18 16 Rate Blood Pressure 118/64 111/76 O2 Sat by Pulse 99 95 96 Oximetry 06/24/19 06/24/19 18:20 18:30 Temperature Pulse Rate 101 H 96 Respiratory 18 18 Rate Blood Pressure 111/76 111/76 O2 Sat by Pulse Oximetry EKG Findings - EKG Comments: EKG Findings:: Normal sinus rhythm 97. WA 1:30. QRS 92. QT 340. QTc 431. Normal axis. Normal QRS. No acute ST change. Medical Decision Making - Medical Decision Making Patient reevaluated and resting comfortably in bed. Patient updated on results. Patient requests discharge home. Case was discussed in detail with Dr. Kelley, covering for Dr. Silva who states patient can be discharged and follow-up with Dr. Frias. Patient states he has not had any discomfort at all this afternoon. Patient states he has not had a discomfort for 6 hours prior to blood work was checked. - Lab Data Result diagrams: 06/24/19 18:01 06/24/19 18:01 Lab Results 06/24/19 06/24/19 06/24/19 Range/Units 18:01 18:01 18:01 WBC 6.7 (3.8-10.6) k/uL RBC 4.98 (4.30-5.90) m/uL Hgb 12.8 L (13.0-17.5) gm/dL Hct 41.3 (39.0-53.0) % MCV 83.0 (80.0-100.0) fL MCH 25.7 (25.0-35.0) pg MCHC 31.0 (31.0-37.0) g/dL RDW 15.7 H (11.5-15.5) % Plt Count 439 (150-450) k/uL Neutrophils % 63 % Lymphocytes % 16 % Monocytes % 7 % Eosinophils % 9 % Basophils % 2 % Neutrophils # 4.2 (1.3-7.7) k/uL Lymphocytes # 1.1 (1.0-4.8) k/uL Monocytes # 0.5 (0-1.0) k/uL Eosinophils # 0.6 (0-0.7) k/uL Basophils # 0.2 (0-0.2) k/uL Hypochromasia Slight PT 9.4 (9.0-12.0) sec INR 0.9 (<1.2) APTT 26.0 (22.0-30.0) sec Sodium 142 (137-145) mmol/L Potassium 4.5 (3.5-5.1) mmol/L Chloride 108 H (98-107) mmol/L Carbon Dioxide 27 (22-30) mmol/L Anion Gap 7 mmol/L BUN 25 H (9-20) mg/dL Creatinine 1.13 (0.66-1.25) mg/dL Est GFR (CKD-EPI)AfAm >90 (>60 ml/min/1.73 sqM) Est GFR (CKD-EPI)NonAf 80 (>60 ml/min/1.73 sqM) Glucose 89 (74-99) mg/dL Calcium 9.4 (8.4-10.2) mg/dL Magnesium 2.1 (1.6-2.3) mg/dL Total Bilirubin 0.4 (0.2-1.3) mg/dL AST 22 (17-59) U/L ALT 25 (21-72) U/L Alkaline Phosphatase 78 (38-126) U/L Troponin I (0.000-0.034) ng/mL Total Protein 6.7 (6.3-8.2) g/dL Albumin 3.8 (3.5-5.0) g/dL 06/24/19 Range/Units 18:01 WBC (3.8-10.6) k/uL RBC (4.30-5.90) m/uL Hgb (13.0-17.5) gm/dL Hct (39.0-53.0) % MCV (80.0-100.0) fL MCH (25.0-35.0) pg MCHC (31.0-37.0) g/dL RDW (11.5-15.5) % Plt Count (150-450) k/uL Neutrophils % % Lymphocytes % % Monocytes % % Eosinophils % % Basophils % % Neutrophils # (1.3-7.7) k/uL Lymphocytes # (1.0-4.8) k/uL Monocytes # (0-1.0) k/uL Eosinophils # (0-0.7) k/uL Basophils # (0-0.2) k/uL Hypochromasia PT (9.0-12.0) sec INR (<1.2) APTT (22.0-30.0) sec Sodium (137-145) mmol/L Potassium (3.5-5.1) mmol/L Chloride (98-107) mmol/L Carbon Dioxide (22-30) mmol/L Anion Gap mmol/L BUN (9-20) mg/dL Creatinine (0.66-1.25) mg/dL Est GFR (CKD-EPI)AfAm (>60 ml/min/1.73 sqM) Est GFR (CKD-EPI)NonAf (>60 ml/min/1.73 sqM) Glucose (74-99) mg/dL Calcium (8.4-10.2) mg/dL Magnesium (1.6-2.3) mg/dL Total Bilirubin (0.2-1.3) mg/dL AST (17-59) U/L ALT (21-72) U/L Alkaline Phosphatase (38-126) U/L Troponin I <0.012 (0.000-0.034) ng/mL Total Protein (6.3-8.2) g/dL Albumin (3.5-5.0) g/dL - Radiology Data Radiology results: image reviewed (Chest x-ray shows no acute process) Disposition Clinical Impression: Chest pain Disposition: HOME SELF-CARE Condition: Stable Instructions (If sedation given, give patient instructions): Chest Pain (ED) Additional Instructions: Please follow-up with Dr. Silva and cardiology, Dr. Frias in the next couple days for recheck. Return for increased pain, difficulty breathing, worsening or changing symptoms or other concerns. Is patient prescribed a controlled substance at d/c from ED?: No Referrals: Rosendo Luis Jr, DO [Primary Care Provider] - 1-2 days Дмитрий Cassidy MD [STAFF PHYSICIAN] - 1-2 days Time of Disposition: 19:35
[2019-06-24 18:25] LABS: Basophils # (A) 0.2 k/uL (0-0.2); Basophils % (A) 2 %; Eosinophils # (A) 0.6 k/uL (0-0.7); Eosinophils % (A) 9 %; HCT 41.3 % (39.0-53.0); HGB 12.8 gm/dL (13.0-17.5); Hypochromasia Slight; Lymphocytes # (A) 1.1 k/uL (1.0-4.8); Lymphocytes % (A) 16 %; MCH 25.7 pg (25.0-35.0); Mean Platelet Volume 6.2; Monocytes # (A) 0.5 k/uL (0-1.0); Monocytes % (A) 7 %; Neutrophils # (A) 4.2 k/uL (1.3-7.7); Neutrophils % (A) 63 %; Platelet Count 439 k/uL (150-450); RBC 4.98 m/uL (4.30-5.90); RDW 15.7 % (11.5-15.5); WBC 6.7 k/uL (3.8-10.6)
[2019-06-24 18:30] LABS: INR 0.9 (<1.2); Prothrombin Time 9.4 sec (9.0-12.0)
[2019-06-24 18:31] LABS: ALT 25 U/L (21-72); AST 22 U/L (17-59); African American GFR (CKD) >90 (>60 ml/min/1.73 sqM); Albumin 3.8 g/dL (3.5-5.0); Alkaline Phosphatase 78 U/L (38-126); Anion Gap 7 mmol/L; Blood Urea Nitrogen 25 mg/dL (9-20); Calcium 9.4 mg/dL (8.4-10.2); Carbon Dioxide 27 mmol/L (22-30); Chloride 108 mmol/L (98-107); Glucose 89 mg/dL (74-99); Magnesium 2.1 mg/dL (1.6-2.3); Non-African American GFR(CKD) 80 (>60 ml/min/1.73 sqM); Potassium 4.5 mmol/L (3.5-5.1); Sodium 142 mmol/L (137-145); Total Bilirubin 0.4 mg/dL (0.2-1.3); Total Protein 6.7 g/dL (6.3-8.2)
--- NOTE | 2019-06-24 18:58 | XR ---
EXAMINATION TYPE: XR chest 2V DATE OF EXAM: 06/24/2019 COMPARISON: 01/08/2018 HISTORY: Pain TECHNIQUE: Frontal and lateral views of the chest are obtained. FINDINGS: Heart and mediastinum are normal. Lungs are clear. Diaphragm is normal. Bony thorax appear s normal. IMPRESSION: Normal chest. No change.
[2019-06-24 19:53] VITALS: BP 117/79; PULSE 99
== END 2019-06-24 19:53 | disposition home or self-care (01) ==
LOC: EC 17:39
DX: R07.9 Chest pain, unspecified (principal); F41.9 Anxiety disorder, unspecified; Z79.899 Other long term (current) drug therapy; Z87.891 Personal history of nicotine dependence
CPT/HCPCS: 36415; 71046; 80053; 83735; 84484; 85025; 85610; 85730; 93005; 96360; 99285

== ENCOUNTER 2020-09-04 20:58 | Emergency (ER) | payer MEDICARE, OTHER ==
[2020-09-04 21:13] VITALS: RESP 18
[2020-09-04] MEDS ORDERED: SODIUM CHLORIDE 0.9% 1,000 ML IV STA (21:56)
[2020-09-04 22:48] LABS: Basophils # (A) 0.1 k/uL (0-0.2); Basophils % (A) 1 %; Eosinophils # (A) 0.3 k/uL (0-0.7); Eosinophils % (A) 4 %; HCT 39.1 % (39.0-53.0); Lymphocytes # (A) 1.4 k/uL (1.0-4.8); Lymphocytes % (A) 20 %; MCH 27.6 pg (25.0-35.0); MCHC 33.3 g/dL (31.0-37.0); Mean Platelet Volume 7.1; Monocytes # (A) 0.6 k/uL (0-1.0); Monocytes % (A) 9 %; Neutrophils # (A) 4.5 k/uL (1.3-7.7); Neutrophils % (A) 64 %; Platelet Count 318 k/uL (150-450); RDW 15.2 % (11.5-15.5)
--- NOTE | 2020-09-04 22:48 | XR ---
EXAMINATION TYPE: XR chest 2V DATE OF EXAM: 09/04/2020 COMPARISON: 06/24/2019 HISTORY: Chest pain TECHNIQUE: FINDINGS: Heart and mediastinum are normal. Lungs are clear. Diaphragm is normal. Bony thorax appears normal. IMPRESSION: Normal chest. No change.
--- NOTE | 2020-09-04 22:51 | ED ---
General Adult HPI - General Chief complaint: GI Bleed Stated complaint: Abd Pain Time Seen by Provider: 09/04/20 21:16 Source: patient Mode of arrival: ambulatory Limitations: no limitations - History of Present Illness Initial comments: 45-year-old male patient presents to the emergency department today for evaluation of chest tightness and pain. Patient states he also had an episode of bright red blood per rectum today. States he does have a history of ulcerative colitis days he does have episodes of blood every couple of months but is mostly maintained on herbal remedies and has been doing great for the last couple of years. He denies any abdominal pain, fever, or chills. Denies any shortness of breath, nausea, or vomiting. Patient denies any recent rash, cough, shortness of breath, chest pain, back pain, numbness, tingling, dizziness, weakness, hematuria, dysuria, urinary urgency, urinary frequency, headache, visual changes, or any other complaints. - Related Data Home Medications Medication Instructions Recorded Confirmed No Known Home Medications 09/04/20 09/04/20 Allergies Allergy/AdvReac Type Severity Reaction Status Date / Time No Known Allergies Allergy Verified 09/04/20 21:43 Review of Systems ROS Statement: Those systems with pertinent positive or pertinent negative responses have been documented in the HPI. ROS Other: All systems not noted in ROS Statement are negative. Past Medical History Past Medical History: No Reported History Additional Past Medical History / Comment(s): Ulcerative colitis, anxiety, GI bleed History of Any Multi-Drug Resistant Organisms: C-DIFF, MRSA Date of last positivie culture/infection: 2015 MDRO Source:: leg wound Past Surgical History: No Surgical Hx Reported Past Anesthesia/Blood Transfusion Reactions: No Reported Reaction Past Psychological History: Anxiety Smoking Status: Never smoker Past Alcohol Use History: Rare Past Drug Use History: Cocaine, Methamphetamine - Past Family History Mother Family Medical History: COPD, Diabetes Mellitus, Thyroid Disorder Additional Family Medical History / Comment(s): Schizophrenia Father History Unknown: Yes General Exam Limitations: no limitations General appearance: alert, in no apparent distress, other (This is a well- developed, well-nourished adult male patient in no acute distress. Vital signs upon presentation are temperature 98.2F, pulse 98, respirations 18, blood pressure 136/78, pulse ox 98% on room air.) Eye exam: Present: normal appearance, PERRL, EOMI. Absent: scleral icterus, conjunctival injection, periorbital swelling ENT exam: Present: normal exam, normal oropharynx, mucous membranes moist Respiratory exam: Present: normal lung sounds bilaterally. Absent: respiratory distress, wheezes, rales, rhonchi, stridor Cardiovascular Exam: Present: regular rate, normal rhythm, normal heart sounds. Absent: systolic murmur, diastolic murmur, rubs, gallop, clicks GI/Abdominal exam: Present: soft, normal bowel sounds. Absent: distended, tenderness, guarding, rebound, rigid Neurological exam: Present: alert, oriented X3, CN II-XII intact Psychiatric exam: Present: normal affect, normal mood Skin exam: Present: warm, dry, intact, normal color. Absent: rash Course Vital Signs 09/04/20 21:09 Temperature 98.2 F Pulse Rate 98 Respiratory 18 Rate Blood Pressure 136/78 O2 Sat by Pulse 98 Oximetry EKG Findings - EKG Comments: EKG Findings:: EKG obtained at 2257 shows normal sinus rhythm with an incomplete right bundle branch block. Ventricular rate is 79, [place] interval 142, QRS duration 96, QT 380, QTc 435. No evidence for ST elevation or depression. Medical Decision Making - Medical Decision Making 45-year-old male patient presents to the emergency department today for evaluation after having one episode of bloody stool at home. States he is also been having intermittent left-sided chest pain over the last week. Physical examination was unremarkable. Lungs are clear to auscultation with good air mo vement. Abdomen soft and nontender. He is afebrile normal vital signs. Labs are completely unremarkable, hemoglobin normal, troponin is negative. EKG shows incomplete right bundle branch block with no ST elevation or depression this is consistent with his previous EKG. I did discuss findings and results with the patient. He does feel comfortable being discharged home at this time. He is instructed to follow-up with his primary care physician for recheck in 1-2 days. Return parameters were discussed in detail. He verbalizes understanding and agrees with this plan. Case was discussed with my attending Dr. Rodriguez. - Lab Data Result diagrams: 09/04/20 22:30 09/04/20 22:30 Lab Results 09/04/20 09/04/20 09/04/20 Range/Units 22:30 22:30 22:30 WBC 7.0 (3.8-10.6) k/uL RBC 4.70 (4.30-5.90) m/uL Hgb 13.0 (13.0-17.5) gm/dL Hct 39.1 (39.0-53.0) % MCV 83.0 (80.0-100.0) fL MCH 27.6 (25.0-35.0) pg MCHC 33.3 (31.0-37.0) g/dL RDW 15.2 (11.5-15.5) % Plt Count 318 (150-450) k/uL MPV 7.1 Neutrophils % 64 % Lymphocytes % 20 % Monocytes % 9 % Eosinophils % 4 % Basophils % 1 % Neutrophils # 4.5 (1.3-7.7) k/uL Lymphocytes # 1.4 (1.0-4.8) k/uL Monocytes # 0.6 (0-1.0) k/uL Eosinophils # 0.3 (0-0.7) k/uL Basophils # 0.1 (0-0.2) k/uL PT 9.8 (9.0-12.0) sec INR 0.9 (<1.2) APTT 26.4 (22.0-30.0) sec Sodium 141 (137-145) mmol/L Potassium 4.0 (3.5-5.1) mmol/L Chloride 110 H (98-107) mmol/L Carbon Dioxide 24 (22-30) mmol/L Anion Gap 7 mmol/L BUN 26 H (9-20) mg/dL Creatinine 1.00 (0.66-1.25) mg/dL Est GFR (CKD-EPI)AfAm >90 (>60 ml/min/1.73 sqM) Est GFR (CKD-EPI)NonAf >90 (>60 ml/min/1.73 sqM) Glucose 122 H (74-99) mg/dL Calcium 8.8 (8.4-10.2) mg/dL Magnesium 2.2 (1.6-2.3) mg/dL Total Bilirubin 0.3 (0.2-1.3) mg/dL AST 18 (17-59) U/L ALT 16 (4-49) U/L Alkaline Phosphatase 70 (38-126) U/L Troponin I (0.000-0.034) ng/mL Total Protein 6.1 L (6.3-8.2) g/dL Albumin 3.5 (3.5-5.0) g/dL 09/04/20 Range/Units 22:30 WBC (3.8-10.6) k/uL RBC (4.30-5.90) m/uL Hgb (13.0-17.5) gm/dL Hct (39.0-53.0) % MCV (80.0-100.0) fL MCH (25.0-35.0) pg MCHC (31.0-37.0) g/dL RDW (11.5-15.5) % Plt Count (150-450) k/uL MPV Neutrophils % % Lymphocytes % % Monocytes % % Eosinophils % % Basophils % % Neutrophils # (1.3-7.7) k/uL Lymphocytes # (1.0-4.8) k/uL Monocytes # (0-1.0) k/uL Eosinophils # (0-0.7) k/uL Basophils # (0-0.2) k/uL PT (9.0-12.0) sec INR (<1.2) APTT (22.0-30.0) sec Sodium (137-145) mmol/L Potassium (3.5-5.1) mmol/L Chloride (98-107) mmol/L Carbon Dioxide (22-30) mmol/L Anion Gap mmol/L BUN (9-20) mg/dL Creatinine (0.66-1.25) mg/dL Est GFR (CKD-EPI)AfAm (>60 ml/min/1.73 sqM) Est GFR (CKD-EPI)NonAf (>60 ml/min/1.73 sqM) Glucose (74-99) mg/dL Calcium (8.4-10.2) mg/dL Magnesium (1.6-2.3) mg/dL Total Bilirubin (0.2-1.3) mg/dL AST (17-59) U/L ALT (4-49) U/L Alkaline Phosphatase (38-126) U/L Troponin I <0.012 (0.000-0.034) ng/mL Total Protein (6.3-8.2) g/dL Albumin (3.5-5.0) g/dL - Radiology Data Radiology results: report reviewed, image reviewed Two-view x-ray of the chest is obtained. Report was reviewed in its entirety. Impression by Dr. Mon shows normal chest. No change. Disposition Clinical Impression: Chest pain, Rectal bleeding Disposition: HOME SELF-CARE Condition: Good Instructions (If sedation given, give patient instructions): Chest Pain (ED), Gastrointestinal Bleeding (ED) Additional Instructions: Follow-up with the primary care physician for recheck in 1-2 days. Consider discussing heart monitoring. Follow-up with her GI specialist for further evaluation. Return to the emergency department for any new, worsening, or concerning symptoms. Is patient prescribed a controlled substance at d/c from ED?: No Referrals: Rosendo Luis Jr, DO [Primary Care Provider] - 1-2 days Time of Disposition: 23:29
[2020-09-04 22:57] LABS: ALT 16 U/L (4-49); AST 18 U/L (17-59); African American GFR (CKD) >90 (>60 ml/min/1.73 sqM); Albumin 3.5 g/dL (3.5-5.0); Alkaline Phosphatase 70 U/L (38-126); Anion Gap 7 mmol/L; Blood Urea Nitrogen 26 mg/dL (9-20); Calcium 8.8 mg/dL (8.4-10.2); Carbon Dioxide 24 mmol/L (22-30); Chloride 110 mmol/L (98-107); Glucose 122 mg/dL (74-99); Magnesium 2.2 mg/dL (1.6-2.3); Non-African American GFR(CKD) >90 (>60 ml/min/1.73 sqM); Sodium 141 mmol/L (137-145); Total Bilirubin 0.3 mg/dL (0.2-1.3); Total Protein 6.1 g/dL (6.3-8.2)
[2020-09-04 23:01] LABS: INR 0.9 (<1.2); Partial Thromboplastin Time 26.4 sec (22.0-30.0); Prothrombin Time 9.8 sec (9.0-12.0)
[2020-09-04 23:53] VITALS: BP 113/77; PULSE 90; TEMP 98.6
== END 2020-09-04 23:53 | disposition home or self-care (01) ==
LOC: EC 20:58
DX: K62.5 Hemorrhage of anus and rectum (principal); R07.9 Chest pain, unspecified; I45.10 Unspecified right bundle-branch block
CPT/HCPCS: 36415; 71046; 80053; 83735; 84484; 85025; 85610; 85730; 93005; 96360; 99284

== ENCOUNTER 2021-01-25 19:49 | Emergency (ER) | payer OTHER ==
[2021-01-25 19:54] VITALS: BP 124/84; PULSE 104; RESP 18; TEMP 98
[2021-01-25] MEDS ORDERED: DIPH,PERTUS(ACELL)TETVAC-LF 0.5 ML VIAL IM ONE (20:15)
--- NOTE | 2021-01-25 20:54 | ED ---
Lower Extremity Injury HPI - General Chief Complaint: Extremity Injury, Lower Stated Complaint: Nail in leg Time Seen by Provider: 01/25/21 20:04 Source: patient, RN notes reviewed Mode of arrival: ambulatory Limitations: no limitations - History of Present Illness Initial Comments: This a 45-year-old male presents emergency from chief complaint of puncture wound to his right ankle region. 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 States it's moderate discomfort at this time. Patient has no difficulty and bleeding. - Related Data Previous Rx's Medication Instructions Recorded Cephalexin [Keflex] 500 mg PO Q6HR #28 cap 01/25/21 Allergies Allergy/AdvReac Type Severity Reaction Status Date / Time No Known Allergies Allergy Verified 01/25/21 19:54 Review of Systems ROS Statement: Those systems with pertinent positive or pertinent negative responses have been documented in the HPI. ROS Other: All systems not noted in ROS Statement are negative. Past Medical History Past Medical History: No Reported History Additional Past Medical History / Comment(s): Ulcerative colitis, anxiety, GI bleed History of Any Multi-Drug Resistant Organisms: C-DIFF, MRSA Date of last positivie culture/infection: 2015 MDRO Source:: leg wound Past Surgical History: No Surgical Hx Reported Past Anesthesia/Blood Transfusion Reactions: No Reported Reaction Past Psychological History: Anxiety Smoking Status: Never smoker Past Alcohol Use History: Rare Past Drug Use History: Cocaine, Methamphetamine - Past Family History Mother Family Medical History: COPD, Diabetes Mellitus, Thyroid Disorder Additional Family Medical History / Comment(s): Schizophrenia Father History Unknown: Yes General Exam Limitations: no limitations General appearance: alert, in no apparent distress Head exam: Present: atraumatic, normocephalic, normal inspection Respiratory exam: Present: normal lung sounds bilaterally. Absent: respiratory distress, wheezes, rales, rhonchi, stridor Cardiovascular Exam: Present: regular rate, normal rhythm, normal heart sounds. Absent: systolic murmur, diastolic murmur, rubs, gallop, clicks Extremities exam: Present: other (Right medial distal tib-fib there is a small puncture wound with no active bleeding it dry blood noted minimal tenderness neurovascular intact) Course Vital Signs 01/25/21 19:52 Temperature 98.0 F Pulse Rate 104 H Respiratory 18 Rate Blood Pressure 124/84 O2 Sat by Pulse 99 Oximetry Medical Decision Making - Medical Decision Making Tetanus is updated x-ray is unremarkable patient was placed on prophylactic antibiotics wound care was discussed. Disposition Clinical Impression: Puncture wound of right lower leg Disposition: HOME SELF-CARE Condition: Stable Instructions (If sedation given, give patient instructions): Puncture Wound (ED) Additional Instructions: Please return to the Emergency Department if symptoms worsen or any other concerns. Prescriptions: Cephalexin [Keflex] 500 mg PO Q6HR #28 cap Is patient prescribed a controlled substance at d/c from ED?: No Referrals: Rosendo Luis Jr, [Primary Care Provider] - 1-2 days Time of Disposition: 20:54
--- NOTE | 2021-01-25 21:26 | XR ---
Result: History: Pain. Comparison: None available. Technique: 3 views of the right ankle. Findings: No acute displaced fracture or dislocation is seen. The visualized osseous structures are in anatomi c alignment. The talar dome is intact and the ankle mortise is congruent. The joint spaces are pres erved. There is small plantar calcaneal spur. Impression: No displaced fracture.
== END 2021-01-25 21:10 | disposition home or self-care (01) ==
LOC: EC 19:49
DX: S81.831A Puncture wound without foreign body, right lower leg, initial encounter (principal); F14.90 Cocaine use, unspecified, uncomplicated; F15.90 Other stimulant use, unspecified, uncomplicated; Z83.3 Family history of diabetes mellitus; Z83.49 Family history of other endocrine, nutritional and metabolic diseases; Z23 Encounter for immunization; W45.0XXA Nail entering through skin, initial encounter; Y99.0 Civilian activity done for income or pay
CPT/HCPCS: 90471; 90715; 99283

== ENCOUNTER → 2021-08-29 | Outpatient (CLI) | payer OTHER ==
[2021-08-29 22:43] LABS: Basophils # (A) 0.05 X 10*3/uL (0.00-0.10); Basophils % (A) 0.5 %; Eosinophils # (A) 0.16 X 10*3/uL (0.04-0.35); Eosinophils % (A) 1.7 %; HCT 43.5 % (39.6-50.0); HGB 13.6 g/dL (13.0-17.0); Lymphocytes # (A) 1.72 X 10*3/uL (0.90-5.00); Lymphocytes % (A) 18.3 %; MCH 27.7 pg (27.0-32.0); MCHC 31.3 g/dL (32.0-37.0); MCV 88.6 fL (80.0-97.0); Mean Platelet Volume 10.2 fL (9.5-12.2); Monocytes # (A) 0.66 X 10*3/uL (0.20-1.00); Neutrophils # (A) 6.75 X 10*3/uL (1.80-7.70); Neutrophils % (A) 72.1 %; Platelet Count 400 X 10*3/uL (140-440); RBC 4.91 X 10*6/uL (4.40-5.60); RDW 14.6 % (11.5-14.5); WBC 9.38 X 10*3/uL (4.50-10.00)
== END | disposition home or self-care (01) ==
LOC: LABWHC1 14:20
PROVIDERS: ATTEND Physician Assistant
DX: K51.011 Ulcerative (chronic) pancolitis with rectal bleeding (principal)
CPT/HCPCS: 36415; 83993; 85025

== ENCOUNTER → 2021-09-01 | Outpatient (CLI) | payer OTHER ==
[2021-09-01 19:34] LABS: Basophils # (A) 0.03 X 10*3/uL (0.00-0.10); Basophils % (A) 0.5 %; Eosinophils # (A) 0.13 X 10*3/uL (0.04-0.35); HCT 43.7 % (39.6-50.0); HGB 13.7 g/dL (13.0-17.0); Lymphocytes # (A) 0.79 X 10*3/uL (0.90-5.00); Lymphocytes % (A) 12.4 %; MCH 27.5 pg (27.0-32.0); MCHC 31.4 g/dL (32.0-37.0); MCV 87.8 fL (80.0-97.0); Mean Platelet Volume 9.9 fL (9.5-12.2); Neutrophils # (A) 4.68 X 10*3/uL (1.80-7.70); Neutrophils % (A) 73.8 %; Platelet Count 378 X 10*3/uL (140-440); RBC 4.98 X 10*6/uL (4.40-5.60); RDW 14.6 % (11.5-14.5); WBC 6.35 X 10*3/uL (4.50-10.00)
[2021-09-01 19:43] LABS: ALT 21 U/L (10-49); AST 17 U/L (14-35); African American GFR (CKD) 111.5 (60.0-200.0); Albumin 4.3 g/dL (3.8-4.9); Albumin/Globulin Ratio 1.49 (1.60-3.17); Alkaline Phosphatase 89 U/L (41-126); BUN/Creat Ratio 19.77 Ratio (12.00-20.00); Blood Urea Nitrogen 18.9 mg/dL (9.0-27.0); Calcium 9.1 mg/dL (8.7-10.3); Carbon Dioxide 23.8 mmol/L (20.0-27.5); Chloride 105 mmol/L (96-109); Globulin 2.9 g/dL (1.6-3.3); Glucose 75 mg/dL (70-110); LDL Cholesterol,Calculated 129.6 mg/dL (0.0-131.0); Non-African American GFR(CKD) 96.2 (60.0-200.0); Potassium 4.1 mmol/L (3.5-5.5); Sodium 141 mmol/L (135-145); Total Protein 7.2 g/dL (6.2-8.2); VLDL Calculation 16.04 mg/dL (5.00-40.00)
[2021-09-01 20:05] LABS: Hepatitis B Surface AB- Quant 3.5 mIU/mL; Hepatitis B Surface Antibody Nonreactive (Nonreactive)
[2021-09-01 20:13] LABS: Hepatitis B Core IgM Nonreactive (Nonreactive); Hepatitis B Surface Antigen Nonreactive (Nonreactive)
[2021-09-01 20:21] LABS: Erythrocyte Sedimentation Rate 20 mm/Hr (0-15)
== END | disposition home or self-care (01) ==
LOC: LABWHC1 11:18
PROVIDERS: ATTEND Physician Assistant
DX: K51.011 Ulcerative (chronic) pancolitis with rectal bleeding (principal)
CPT/HCPCS: 36415; 80053; 80061; 85025; 85652; 86140; 86704; 86705; 86706; 87340

== ENCOUNTER 2022-02-03 02:45 | Emergency (ER) | payer OTHER ==
--- NOTE | 2022-02-03 04:05 | ED ---
Psych HPI - General Chief Complaint: Psychiatric Symptoms Stated Complaint: mental health Time Seen by Provider: 02/03/22 03:19 Source: patient, RN notes reviewed, old records reviewed Mode of arrival: ambulatory Limitations: no limitations - History of Present Illness Initial Comments: This is a 47-year-old male to the ER for evaluation patient presents for certain medications to make him feel better. Patient states is unsure why he is here states he we will avoid going to his ex-girlfriend's house his car clinical home he hasn't worked at work and presents emergency department patient is not homicidal or suicidal denies current drug or alcohol abuse MD Complaint: feels depressed, altered mental status, other (ABG having increased mild manic state) -: hour(s) Associated Psychiatric Symptoms: depression, racing thoughts, delusions Quality: intermittent Improves With: none Worsens With: none Context: recent alcohol abuse Associated Symptoms: denies other symptoms, headache - Related Data Previous Rx's Medication Instructions Recorded Cephalexin [Keflex] 500 mg PO Q6HR #28 cap 01/25/21 Allergies Allergy/AdvReac Type Severity Reaction Status Date / Time No Known Allergies Allergy Verified 01/25/21 19:54 Review of Systems ROS Statement: Those systems with pertinent positive or pertinent negative responses have been documented in the HPI. ROS Other: All systems not noted in ROS Statement are negative. Past Medical History Past Medical History: No Reported History Additional Past Medical History / Comment(s): Ulcerative colitis, anxiety, GI bleed History of Any Multi-Drug Resistant Organisms: C-DIFF, MRSA Date of last positivie culture/infection: 2015 MDRO Source:: leg wound Past Surgical History: No Surgical Hx Reported Past Anesthesia/Blood Transfusion Reactions: No Reported Reaction Past Psychological History: Anxiety Smoking Status: Never smoker Past Alcohol Use History: Rare Past Drug Use History: Cocaine, Methamphetamine - Past Family History Mother Family Medical History: COPD, Diabetes Mellitus, Thyroid Disorder Additional Family Medical History / Comment(s): Schizophrenia Father History Unknown: Yes General Exam General appearance: alert, in no apparent distress, anxious Head exam: Present: atraumatic, normocephalic, normal inspection Eye exam: Present: normal appearance, PERRL, EOMI. Absent: scleral icterus, conjunctival injection, periorbital swelling ENT exam: Present: normal exam, mucous membranes moist Neck exam: Present: normal inspection. Absent: tenderness, meningismus, lymphadenopathy Respiratory exam: Present: normal lung sounds bilaterally. Absent: respiratory distress, wheezes, rales, rhonchi, stridor Cardiovascular Exam: Present: regular rate, normal rhythm, normal heart sounds. Absent: systolic murmur, diastolic murmur, rubs, gallop, clicks GI/Abdominal exam: Present: soft, normal bowel sounds. Absent: distended, tenderness, guarding, rebound, rigid Extremities exam: Present: normal inspection, full ROM, normal capillary refill. Absent: tenderness, pedal edema, joint swelling, calf tenderness Back exam: Present: normal inspection Neurological exam: Present: alert, oriented X3, CN II-XII intact Psychiatric exam: Present: normal affect, normal mood Skin exam: Present: warm, dry, intact, normal color. Absent: rash Course Vital Signs 02/03/22 02/03/22 02:46 05:31 Temperature 98 F 97.8 F Pulse Rate 99 88 Respiratory 18 16 Rate Blood Pressure 148/97 138/66 O2 Sat by Pulse 100 98 Oximetry - Reevaluation(s) Reevaluation #1: 02/03/22 Medical record is reviewed Medical clear for psychiatric evaluation Medical Decision Making - Medical Decision Making 47 male to the emergency department for evaluation patient presents today for evaluation of psychiatric illness. Patient consents his safety and will be discharged home - Lab Data Lab Results 02/03/22 Range/Units 04:30 Urine Opiates Screen Not Detected (NotDetected) Ur Oxycodone Screen Not Detected (NotDetected) Urine Methadone Screen Not Detected (NotDetected) Ur Propoxyphene Screen Not Detected (NotDetected) Ur Barbiturates Screen Not Detected (NotDetected) U Tricyclic Antidepress Not Detected (NotDetected) Ur Phencyclidine Scrn Not Detected (NotDetected) Ur Amphetamines Screen Not Detected (NotDetected) U Methamphetamines Scrn Not Detected (NotDetected) U Benzodiazepines Scrn Not Detected (NotDetected) Urine Cocaine Screen Not Detected (NotDetected) U Marijuana (THC) Screen Not Detected (NotDetected) Disposition Clinical Impression: Normal exam Disposition: HOME SELF-CARE Condition: Fair Instructions (If sedation given, give patient instructions): Normal Exam (ED) Is patient prescribed a controlled substance at d/c from ED?: No Referrals: Rosendo Luis Jr, [Primary Care Provider] - 1-2 days Time of Disposition: 05:20
[2022-02-03 04:54] LABS: Amphetamine Screen,Urine Not Detected (NotDetected); Barbiturate Screen,Urine Not Detected (NotDetected); Benzodiazepines Screen,Urine Not Detected (NotDetected); Cocaine Screen,Urine Not Detected (NotDetected); Methadone Screen, Urine Not Detected (NotDetected); Opiate Screen,Urine Not Detected (NotDetected); Oxycodone Screen, Urine Not Detected (NotDetected); Phencyclidine Screen,Urine Not Detected (NotDetected); Tricyclic Antidepressant,Urine Not Detected (NotDetected); Urn Cannabinoid Scrn Not Detected (NotDetected)
[2022-02-03 05:32] VITALS: BP 138/66; PULSE 88; RESP 16; TEMP 97.8
== END 2022-02-03 05:31 | disposition home or self-care (01) ==
LOC: EC 02:45
DX: Z00.00 Encounter for general adult medical examination without abnormal findings (principal); J44.9 Chronic obstructive pulmonary disease, unspecified; E11.9 Type 2 diabetes mellitus without complications
CPT/HCPCS: 80306; 82075; 99284

== ENCOUNTER 2023-11-21 00:48 | Emergency (ER) | payer BC, OTHER ==
--- NOTE | 2023-11-21 01:33 | XR ---
EXAM: XR Chest, 2 Views CLINICAL HISTORY: ITS.REASON XR Reason: cough TECHNIQUE: Frontal and lateral views of the chest. COMPARISON: No relevant prior studies available. FINDINGS: Lungs: No consolidation or mass. Pleural space: No effusion. Heart: No cardiomegaly. Bones/joints: No acute findings. IMPRESSION: No acute cardiopulmonary process.
--- NOTE | 2023-11-21 02:54 | ED ---
General Adult HPI - General Chief complaint: Upper Respiratory Infection Stated complaint: cough chest pain head pain bumps on head Time Seen by Provider: 11/21/23 01:28 Source: patient Mode of arrival: wheelchair Limitations: no limitations - History of Present Illness Initial comments: 48-year-old male presenting to the ED with complaints of cough. Patient states he has had nonproductive cough for the past 7 days. No fever or chills. No shortness of breath or chest pain. Patient also notes that he has a itchy head and is concerned he may have monkeypox. No other complaints at this time. - Related Data Home Medications Medication Instructions Recorded Confirmed No Known Home Medications 04/17/23 04/17/23 Allergies Allergy/AdvReac Type Severity Reaction Status Date / Time No Known Allergies Allergy Verified 11/21/23 01:02 Review of Systems ROS Statement: Those systems with pertinent positive or pertinent negative responses have been documented in the HPI. ROS Other: All systems not noted in ROS Statement are negative. Past Medical History Past Medical History: No Reported History Additional Past Medical History / Comment(s): Ulcerative colitis, anxiety, GI bleed History of Any Multi-Drug Resistant Organisms: C-DIFF, MRSA Date of last positivie culture/infection: 2015 MDRO Source:: leg wound Past Surgical History: No Surgical Hx Reported Past Anesthesia/Blood Transfusion Reactions: No Reported Reaction Past Psychological History: Anxiety Smoking Status: Never smoker Past Alcohol Use History: Rare Past Drug Use History: Cocaine, Methamphetamine - Past Family History Mother Family Medical History: COPD, Diabetes Mellitus, Thyroid Disorder Additional Family Medical History / Comment(s): Schizophrenia Father History Unknown: Yes General Exam Limitations: no limitations General appearance: alert, in no apparent distress Eye exam: Present: normal appearance Neck exam: Present: normal inspection Respiratory exam: Present: normal lung sounds bilaterally. Absent: accessory muscle use Cardiovascular Exam: Present: regular rate GI/Abdominal exam: Present: soft Neurological exam: Present: alert, oriented X3 Skin exam: Present: warm, dry, other (No bullous or vesicular lesions noted on the patient's scalp.) Course Vital Signs 11/21/23 00:59 Temperature 98.6 F Pulse Rate 103 H Respiratory 22 Rate Blood Pressure 113/78 O2 Sat by Pulse 95 Oximetry Medical Decision Making - Medical Decision Making Was pt. sent in by a medical professional or institution (Dr., PA, BLOW MOLDING MACHINE OPERATOR, urgent care, hospital, or senior care...) When possible be specific @ -No Did you speak to anyone other than the patient for history (EMS, parent, family, police, friend...)? What history was obtained from this source @ -No Did you review nursing and triage notes (agree or disagree)? Why? @ -I reviewed and agree with nursing and triage notes Were old charts reviewed (outside hosp., previous admission, EMS record, old EKG, old radiological studies, urgent care reports/EKG's, senior care records)? Report findings @ -No old charts were reviewed Differential Diagnosis (chest pain, altered mental status, abdominal pain women, abdominal pain men, vaginal bleeding, weakness, fever, dyspnea, syncope, headache, dizziness, GI bleed, back pain, seizure, CVA, palpatations, mental health, musculoskeletal)? @ -Differential Dyspnea: Coronary syndrome, arrhythmia, tamponade, asthma, COPD, pulmonary embolism, pneumonia, pneumothorax, pulmonary effusion, anaphylaxis, diabetic ketoacidosis, flailed chest, pulmonary contusion, diaphragmatic rupture, anemia, neuromuscular, this is not meant to be an all-inclusive list. EKG interpreted by me (3pts min.). @ -None X-rays interpreted by me (1pt min.). @ -Chest x-ray interpreted me which revealed no evidence of acute process. CT interpreted by me (1pt min.). @ -None done U/S interpreted by me (1pt. min.). @ -None done What testing was considered but not performed or refused? (CT, X-rays, U/S, labs)? Why? @ -None What meds were considered but not given or refused? Why? @ -None Did you discuss the management of the patient with other professionals (professionals i.e. CASPER Bowen, BLOW MOLDING MACHINE OPERATOR, lab, RT, psych nurse, social science teacher, gun stock maker, teacher, attendance officer, rn case manager)? Give summary @ -No Was smoking cessation discussed for >3mins.? @ -No Was critical care preformed (if so, how long)? @ -No Were there social determinants of health that impacted care today? How? (Homelessness, low income, unemployed, alcoholism, drug addiction, transportation, low edu. Level, literacy, decrease access to med. care, alf, rehab)? @ -No Was there de-escalation of care discussed even if they declined (Discuss DNR or withdrawal of care, Hospice)? DNR status @ -No What co-morbidities impacted this encounter? (DM, HTN, Smoking, COPD, CAD, Cancer, CVA, ARF, Chemo, Hep., AIDS, mental health diagnosis, sleep apnea, morbid obesity)? @ -None Was patient admitted / discharged? Hospital course, mention meds given and route, prescriptions, significant lab abnormalities, going to OR and other pertinent info. @ -Discharge 48-year-old male presented to the ED with complaints of dry cough for the past week. Serology panel reviewed. This was negative. Chest x-ray revealed no evidence of pneumonia or other acute process. Provided dose of steroids and given a prescription for inhaler. Discussed return precautions with patient who verbalized agreement. Undiagnosed new problem with uncertain prognosis? @ -No Drug Therapy requiring intensive monitoring for toxicity (Heparin, Nitro, Insulin, Cardizem)? @ -No Were any procedures done? @ -No Diagnosis/symptom? @ -Viral URI Acute, or Chronic, or Acute on Chronic? @ -Acute Uncomplicated (without systemic symptoms) or Complicated (systemic symptoms)? @ -Uncomplicated Side effects of treatment? @ -No Exacerbation, Progression, or Severe Exacerbation? @ -No Poses a threat to life or bodily function? How? (Chest pain, USA, [place], pneumonia, PE, COPD, DKA, ARF, appy, cholecystitis, CVA, Diverticulitis, Homicidal, Suicidal, threat to staff... and all critical care pts) @ -No - Lab Data Lab Results 11/21/23 Range/Units 01:19 Influenza Type A (PCR) Not Detected (Not Detectd) Influenza Type B (PCR) Not Detected (Not Detectd) RSV (PCR) Not Detected (Not Detectd) SARS-CoV-2 (PCR) Not Detected (Not Detectd) Disposition Clinical Impression: Viral URI Disposition: HOME SELF-CARE Condition: Good Instructions (If sedation given, give patient instructions): Upper Respiratory Infection (ED) Additional Instructions: Please return to the Emergency Department if symptoms worsen or any other concerns. Please follow-up with your primary care provider. Is patient prescribed a controlled substance at d/c from ED?: No Referrals: Rosendo Luis Jr, [Primary Care Provider] - 1-2 days Time of Disposition: 02:57
[2023-11-21] MEDS: dexAMETHasone 2 MG TAB PO STA (03:08)
[2023-11-21 03:24] VITALS: BP 128/80; PULSE 77; RESP 17; TEMP 98.1
== END 2023-11-21 03:15 | disposition home or self-care (01) ==
LOC: EC 00:48
DX: J06.9 Acute upper respiratory infection, unspecified (principal); F15.90 Other stimulant use, unspecified, uncomplicated; F14.90 Cocaine use, unspecified, uncomplicated
CPT/HCPCS: 87636; 71046; 99283; J8540

== ENCOUNTER 2023-11-24 23:49 | Emergency (ER) | payer OTHER ==
[2023-11-25 00:13] VITALS: BP 139/84; TEMP 98.3
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
[2023-11-25 01:29] LABS: ALT 37 U/L (4-49); AST 33 U/L (17-59); African American GFR (CKD) >90 (>60 ml/min/1.73 sqM); Albumin 4.1 g/dL (3.5-5.0); Alkaline Phosphatase 79 U/L (38-126); Anion Gap 5 mmol/L; Blood Urea Nitrogen 26 mg/dL (9-20); Calcium 9.4 mg/dL (8.4-10.2); Carbon Dioxide 27 mmol/L (22-30); Chloride 107 mmol/L (98-107); Glucose 88 mg/dL (74-99); Non-African American GFR(CKD) >90 (>60 ml/min/1.73 sqM); Potassium 4.2 mmol/L (3.5-5.1); Sodium 139 mmol/L (137-145); Total Bilirubin 0.4 mg/dL (0.2-1.3); Total Protein 6.7 g/dL (6.3-8.2)
[2023-11-25 01:52] LABS: Basophils # (A) 0.1 k/uL (0-0.2); Basophils % (A) 1 %; Eosinophils # (A) 0.2 k/uL (0-0.7); Eosinophils % (A) 3 %; HCT 44.2 % (39.0-53.0); HGB 14.3 gm/dL (13.0-17.5); Lymphocytes # (A) 0.6 k/uL (1.0-4.8); Lymphocytes % (A) 10 %; MCH 29.3 pg (25.0-35.0); MCHC 32.5 g/dL (31.0-37.0); MCV 90.3 fL (80.0-100.0); Mean Platelet Volume 8.1; Monocytes # (A) 0.9 k/uL (0-1.0); Monocytes % (A) 14 %; Neutrophils # (A) 4.6 k/uL (1.3-7.7); Neutrophils % (A) 69 %; Platelet Count 264 k/uL (150-450); RDW 14.4 % (11.5-15.5); WBC 6.6 k/uL (3.8-10.6)
[2023-11-25 01:57] LABS: Amphetamine Screen,Urine Not Detected (NotDetected); Barbiturate Screen,Urine Not Detected (NotDetected); Benzodiazepines Screen,Urine Not Detected (NotDetected); Cocaine Screen,Urine Not Detected (NotDetected); Methadone Screen, Urine Not Detected (NotDetected); Opiate Screen,Urine Not Detected (NotDetected); Oxycodone Screen, Urine Not Detected (NotDetected); Phencyclidine Screen,Urine Not Detected (NotDetected); Tricyclic Antidepressant,Urine Not Detected (NotDetected); Urn Cannabinoid Scrn Not Detected (NotDetected)
[2023-11-25 06:21] VITALS: PULSE 97; RESP 19
== END 2023-11-25 06:19 | disposition home or self-care (01) ==
LOC: EC 23:49
DX: F30.9 Manic episode, unspecified (principal)
CPT/HCPCS: 36415; 80053; 80306; 85025; 87636; 99284

== ENCOUNTER 2023-11-30 22:50 | Emergency (ER) | payer OTHER ==
[2023-11-30 23:26] VITALS: TEMP 99.9
--- NOTE | 2023-12-01 01:21 | ED ---
ENT HPI - General Chief complaint: ENT Stated complaint: psych symptoms Time Seen by Provider: 12/01/23 00:31 Source: patient, EMS Mode of arrival: EMS Limitations: no limitations - History of Present Illness Initial comments: 8-year-old male presents to the ED with complaints of right ear pain. Reports over the past week has had a dry cough and was already seen at an outside hospital for this. Was provided prescription for azithromycin which she reports he has been taking as prescribed. Today, developed some right ear pain. No drainage from the ear. No hearing loss is. No fever or chills. No chest pain shortness of breath. No other complaints at this time. In order to remedy this pain, patient reports that he placed holy water in his ear which she states improved pain. Did not take pain medications for this. - Related Data Previous Rx's Medication Instructions Recorded Albuterol Inhaler [Ventolin Hfa 1 - 2 puff INHALATION Q6H PRN #1 11/21/23 Inhaler] each Acetaminophen Tab [Tylenol Tab] 500 mg PO Q6H #30 tablet 12/01/23 Allergies Allergy/AdvReac Type Severity Reaction Status Date / Time No Known Allergies Allergy Verified 11/30/23 23:19 Review of Systems ROS Statement: Those systems with pertinent positive or pertinent negative responses have been documented in the HPI. ROS Other: All systems not noted in ROS Statement are negative. Past Medical History Past Medical History: No Reported History Additional Past Medical History / Comment(s): Ulcerative colitis, anxiety, GI bleed History of Any Multi-Drug Resistant Organisms: C-DIFF, MRSA Date of last positivie culture/infection: 2015 MDRO Source:: leg wound Past Surgical History: No Surgical Hx Reported Past Anesthesia/Blood Transfusion Reactions: No Reported Reaction Past Psychological History: Anxiety Smoking Status: Never smoker Past Alcohol Use History: Rare Past Drug Use History: Cocaine, Methamphetamine - Past Family History Mother Family Medical History: COPD, Diabetes Mellitus, Thyroid Disorder Additional Family Medical History / Comment(s): Schizophrenia Father History Unknown: Yes General Exam Limitations: no limitations General appearance: alert, in no apparent distress Eye exam: Present: normal appearance ENT exam: Present: other (Right TM intact, nonerythematous, nonbulging. Ear canal not erythematous. There is clear fluid within the ear consistent with water. No mastoid process tenderness to palpation.) Neck exam: Present: normal inspection Respiratory exam: Present: normal lung sounds bilaterally Cardiovascular Exam: Present: regular rate GI/Abdominal exam: Present: soft Neurological exam: Present: alert, oriented X3 Skin exam: Present: warm, dry Course Vital Signs 11/30/23 23:16 Temperature 99.9 F H Pulse Rate 108 H Respiratory 20 Rate Blood Pressure 108/70 O2 Sat by Pulse 98 Oximetry Medical Decision Making - Medical Decision Making Was pt. sent in by a medical professional or institution (, PA, [employer], urgent care, hospital, or long-term...) When possible be specific @ -No Did you speak to anyone other than the patient for history (EMS, parent, family, police, friend...)? What history was obtained from this source @ -No Did you review nursing and triage notes (agree or disagree)? Why? @ -I reviewed and agree with nursing and triage notes Were old charts reviewed (outside hosp., previous admission, EMS record, old EKG, old radiological studies, urgent care reports/EKG's, long-term records)? Report findings @ -No old charts were reviewed Differential Diagnosis (chest pain, altered mental status, abdominal pain women, abdominal pain men, vaginal bleeding, weakness, fever, dyspnea, syncope, headache, dizziness, GI bleed, back pain, seizure, CVA, palpatations, mental health, musculoskeletal)? @ -Differential Fever: Pneumonia, viral URI, endocarditis, myocarditis, pericarditis, otitis, sinusitis, peritonsillar Abscess, retropharyngeal Abscess, epiglottitis, peritonitis, appendicitis, Angela cystitis, diverticulitis, hepatitis, colitis, UTI, PID, TOA, pyelonephritis, prostatitis, epididymitis, meningitis, encephalitis, pulmonary embolism, CVA, thyroid storm, pancreatitis, adrenal crisis, cavernous sinus thrombosis, this is not meant to be an all-inclusive list. EKG interpreted by me (3pts min.). @ -None X-rays interpreted by me (1pt min.). @ -None done CT interpreted by me (1pt min.). @ -None done U/S interpreted by me (1pt. min.). @ -None done What testing was considered but not performed or refused? (CT, X-rays, U/S, labs)? Why? @ -None What meds were considered but not given or refused? Why? @ -None Did you discuss the management of the patient with other professionals (professionals i.e. , PA, [employer], lab, RT, psych nurse, child protective services social worker, filter changing technician, teacher, contract officer, corrections caseworker)? Give summary @ -No Was smoking cessation discussed for >3mins.? @ -No Was critical care preformed (if so, how long)? @ -No Were there social determinants of health that impacted care today? How? (Homelessness, low income, unemployed, alcoholism, drug addiction, transportation, low edu. Level, literacy, decrease access to med. care, alf, rehab)? @ -No Was there de-escalation of care discussed even if they declined (Discuss DNR or withdrawal of care, Hospice)? DNR status @ -No What co-morbidities impacted this encounter? (DM, HTN, Smoking, COPD, CAD, Cancer, CVA, ARF, Chemo, Hep., AIDS, mental health diagnosis, sleep apnea, morbid obesity)? @ -None Was patient admitted / discharged? Hospital course, mention meds given and route, prescriptions, significant lab abnormalities, going to OR and other per tinent info. @ -Discharge 48-year-old male presenting to the ED with complaint of right ear pain. On examination right ear unremarkable. TM intact, nonbulging, no erythema. Ear canal nonerythematous. No mastoid process tenderness to palpation. Patient provided pain medication here and discharged home with prescription for Tylenol. Advised to continue antibiotics as prescribed. Discharged home in stable condition. Advise close follow-up with his PCP. Discussed return precautions with patient who verbalized agreement. Undiagnosed new problem with uncertain prognosis? @ -No Drug Therapy requiring intensive monitoring for toxicity (Heparin, Nitro, Insulin, Cardizem)? @ -No Were any procedures done? @ -No Diagnosis/symptom? @ -Right ear pain Acute, or Chronic, or Acute on Chronic? @ -Acute Uncomplicated (without systemic symptoms) or Complicated (systemic symptoms)? @ -Uncomplicated Side effects of treatment? @ -No Exacerbation, Progression, or Severe Exacerbation? @ -No Poses a threat to life or bodily function? How? (Chest pain, USA, NM, pneumonia, PE, COPD, DKA, ARF, appy, cholecystitis, CVA, Diverticulitis, Homicidal, Suicidal, threat to staff... and all critical care pts) @ -No Disposition Clinical Impression: Right ear pain Disposition: HOME SELF-CARE Condition: Good Instructions (If sedation given, give patient instructions): Earache (ED) Additional Instructions: Please return to the Emergency Department if symptoms worsen or any other concerns. Please follow-up with your PCP. Take ibuprofen and acetaminophen as needed for pain. Do not place foreign objects or fluids into your ear. Prescriptions: Acetaminophen Tab [Tylenol Tab] 500 mg PO Q6H #30 tablet Is patient prescribed a controlled substance at d/c from ED?: No Referrals: Rosendo Luis Jr, [Primary Care Provider] - 1-2 days Time of Disposition: 01:24
[2023-12-01] MEDS: ACETAMINOPHEN TAB 500 MG TAB PO STA (01:26)
[2023-12-01 01:57] VITALS: BP 109/63; PULSE 95; RESP 18
== END 2023-12-01 02:47 | disposition home or self-care (01) ==
LOC: EC 22:50
DX: H92.01 Otalgia, right ear (principal)
CPT/HCPCS: 99283

== ENCOUNTER 2024-01-25 01:53 | Emergency (ER) | payer OTHER ==
--- NOTE | 2024-01-25 02:45 | ED ---
General Adult HPI - General Chief complaint: Psychiatric Symptoms Stated complaint: mental health-homicidal Time Seen by Provider: 01/25/24 02:25 Source: patient, police, EMS, RN notes reviewed, old records reviewed Mode of arrival: EMS Limitations: no limitations - History of Present Illness Initial comments: Patient is a 48-year-old male who presents emergency department for psychiatric evaluation. Was petitioned by police. Petition states that patient was going to commit arson tonight against another person by burning down the house. Said this multiple time. Patient denies this but states he had to stand up for "what was right." Does have some tangential thoughts. States he was fighting against drug dealers. Denies any suicidal or homicidal ideations, times complaints. Denies any visual or auditory hallucinations. Presents for further evaluation at this time. Does endorse drinking alcohol but denies any other drugs. - Related Data Previous Rx's Medication Instructions Recorded Albuterol Inhaler [Ventolin Hfa 1 - 2 puff INHALATION Q6H PRN #1 11/21/23 Inhaler] each Acetaminophen Tab [Tylenol Tab] 500 mg PO Q6H #30 tablet 12/01/23 Allergies Allergy/AdvReac Type Severity Reaction Status Date / Time No Known Allergies Allergy Verified 01/25/24 02:08 Review of Systems ROS Statement: Those systems with pertinent positive or pertinent negative responses have been documented in the HPI. Review of Systems: CONST: Denies fever EYES: Denies blurry vision ENT: Denies nasal congestion C/V: Denies Chest pain RESP: Denies shortness of breath GI: Denies abdominal pain : Denies dysuria SKIN: Denies rash. MSK: Denies joint pain. NEURO: Denies headache ROS Other: All systems not noted in ROS Statement are negative. Past Medical History Past Medical History: No Reported History Additional Past Medical History / Comment(s): Ulcerative colitis, anxiety, GI bleed History of Any Multi-Drug Resistant Organisms: C-DIFF, MRSA Date of last positivie culture/infection: 2015 MDRO Source:: leg wound Past Surgical History: No Surgical Hx Reported Past Anesthesia/Blood Transfusion Reactions: No Reported Reaction Past Psychological History: Anxiety Smoking Status: Current every day smoker Past Alcohol Use History: Occasional Past Drug Use History: Cocaine, Methamphetamine - Past Family History Mother Family Medical History: COPD, Diabetes Mellitus, Thyroid Disorder Additional Family Medical History / Comment(s): Schizophrenia Father History Unknown: Yes General Exam - General Exam Comments Initial Comments: General: Appears in no acute distress. HEAD: Normal with no signs of head trauma. EYES: PERRLA, EOMI, conjunctiva normal, no discharge. ENT: Hearing grossly intact, normal oropharynx. RESPIRATORY: Clear breath sounds bilaterally. No wheezes, rales, or rhonchi. C/V: Regular rate and rhythm. S1 and S2 auscultated ABD: Abd is soft, nontender, nondistended EXT: no obvious deformity SKIN: No rashes or lesions observed on exposed skin. NEURO: Alert and oriented x 4. Limitations: no limitations Course Vital Signs 01/25/24 01/25/24 01:57 06:00 Temperature 97.7 F 97.8 F Pulse Rate 90 83 Respiratory 18 16 Rate Blood Pressure 139/94 135/76 O2 Sat by Pulse 97 98 Oximetry Medical Decision Making - Medical Decision Making Was pt. sent in by a medical professional or institution (, PA, [employer], urgent care, hospital, or shelter...) When possible be specific @ -No Did you speak to anyone other than the patient for history (EMS, parent, family, police, friend...)? What history was obtained from this source @ -No Did you review nursing and triage notes (agree or disagree)? Why? @ -I reviewed and agree with nursing and triage notes Were old charts reviewed (outside hosp., previous admission, EMS record, old EKG, old radiological studies, urgent care reports/EKG's, shelter records)? Report findings @ -Reviewed petition from police which revealed that patient was going to commit arson and was in an altercation. Patient was brought here for psychiatric evaluation. Differential Diagnosis (chest pain, altered mental status, abdominal pain women, abdominal pain men, vaginal bleeding, weakness, fever, dyspnea, syncope, headache, dizziness, GI bleed, back pain, seizure, CVA, palpatations, mental health, musculoskeletal)? @ -Differential Mental Health Depression, anxiety, bipolar, psychosis, schizophrenia, borderline personality, situational depression, adjustment disorder, behavioral disorder, brain tumor, malingering, substance abuse, encephalopathy, medication reaction, dementia, hypothyroidism, degenerative neurologic disorder, lupus.... This is not meant to be all-inclusive list EKG interpreted by me (3pts min.). @ -None done X-rays interpreted by me (1pt min.). @ -None done CT interpreted by me (1pt min.). @ -None done U/S interpreted by me (1pt. min.). @ -None done What testing was considered but not performed or refused? (CT, X-rays, U/S, lab s)? Why? @ -None What meds were considered but not given or refused? Why? @ -None Did you discuss the management of the patient with other professionals (professionals i.e. [place], PA, [employer], lab, RT, psych nurse, licensed clinical social worker, woodworking bench carpenter, teacher, correction officer head, case loader operator)? Give summary @ -EPS notified of the consult. Was smoking cessation discussed for >3mins.? @ -No Was critical care preformed (if so, how long)? @ -No Were there social determinants of health that impacted care today? How? (Homelessness, low income, unemployed, alcoholism, drug addiction, transportation, low edu. Level, literacy, decrease access to med. care, half-way, rehab)? @ -No Was there de-escalation of care discussed even if they declined (Discuss DNR or withdrawal of care, Hospice)? DNR status @ -No What co-morbidities impacted this encounter? (DM, HTN, Smoking, COPD, CAD, Cancer, CVA, ARF, Chemo, Hep., AIDS, mental health diagnosis, sleep apnea, morbid obesity)? @ -None Was patient admitted / discharged? Hospital course, mention meds given and route, prescriptions, significant lab abnormalities, going to OR and other pertinent info. @ -Patient presents for psychiatric evaluation. Patient was petitioned by police. Sitter ordered. BAT is 0.083. UDS is pending. Vital signs within acceptable limits. Patient is medically cleared pending sobriety. Disposition pending psychiatric evaluation. EPS notified of the consult. EPS Irma evaluate the patient and determined that patient does meet inpatient criteria. Clinical certificate completed by myself. Undiagnosed new problem with uncertain prognosis? @ -No Drug Therapy requiring intensive monitoring for toxicity (Heparin, Nitro, Insulin, Cardizem)? @ -No Were any procedures done? @ -No Diagnosis/symptom? @ -Homicidal, psychosis. Acute, or Chronic, or Acute on Chronic? @ -Acute Uncomplicated (without systemic symptoms) or Complicated (systemic symptoms)? @ -Complicated Side effects of treatment? @ -None Exacerbation, Progression, or Severe Exacerbation] @ -No Poses a threat to life or bodily function? @ -Yes - Lab Data Lab Results 01/25/24 Range/Units 02:34 Urine Opiates Screen Not Detected (NotDetected) Ur Oxycodone Screen Not Detected (NotDetected) Urine Methadone Screen Not Detected (NotDetected) Ur Barbiturates Screen Not Detected (NotDetected) U Tricyclic Antidepress Not Detected (NotDetected) Ur Phencyclidine Scrn Not Detected (NotDetected) Ur Amphetamines Screen Not Detected (NotDetected) U Methamphetamines Scrn Not Detected (NotDetected) U Benzodiazepines Scrn Not Detected (NotDetected) Urine Cocaine Screen Not Detected (NotDetected) U Marijuana (THC) Screen Not Detected (NotDetected) Disposition Clinical Impression: Homicidal thoughts, Psychosis Disposition: TRANSFER TO PSYCH HOSP/UNIT Condition: Stable Referrals: Rosendo Luis Jr, [Primary Care Provider] - 1-2 days
[2024-01-25 03:15] LABS: Amphetamine Screen,Urine Not Detected (NotDetected); Barbiturate Screen,Urine Not Detected (NotDetected); Benzodiazepines Screen,Urine Not Detected (NotDetected); Cocaine Screen,Urine Not Detected (NotDetected); Methadone Screen, Urine Not Detected (NotDetected); Opiate Screen,Urine Not Detected (NotDetected); Oxycodone Screen, Urine Not Detected (NotDetected); Phencyclidine Screen,Urine Not Detected (NotDetected); Tricyclic Antidepressant,Urine Not Detected (NotDetected); Urn Cannabinoid Scrn Not Detected (NotDetected)
[2024-01-25 07:10] LABS: Basophils % (A) 0 %; Eosinophils # (A) 0.2 k/uL (0-0.7); Eosinophils % (A) 2 %; HCT 45.2 % (39.0-53.0); HGB 14.5 gm/dL (13.0-17.5); Lymphocytes # (A) 1.2 k/uL (1.0-4.8); Lymphocytes % (A) 16 %; MCH 29.5 pg (25.0-35.0); MCHC 32.1 g/dL (31.0-37.0); MCV 91.9 fL (80.0-100.0); Mean Platelet Volume 7.5; Monocytes # (A) 0.6 k/uL (0-1.0); Monocytes % (A) 8 %; Neutrophils # (A) 5.3 k/uL (1.3-7.7); Neutrophils % (A) 72 %; Platelet Count 285 k/uL (150-450); RBC 4.92 m/uL (4.30-5.90); RDW 14.1 % (11.5-15.5); WBC 7.4 k/uL (3.8-10.6)
[2024-01-25 07:34] LABS: ALT 35 U/L (4-49); AST 32 U/L (17-59); African American GFR (CKD) >90 (>60 ml/min/1.73 sqM); Albumin 4.1 g/dL (3.5-5.0); Alkaline Phosphatase 62 U/L (38-126); Anion Gap 6 mmol/L; Blood Urea Nitrogen 19 mg/dL (9-20); Carbon Dioxide 25 mmol/L (22-30); Chloride 109 mmol/L (98-107); Glucose 91 mg/dL (74-99); Non-African American GFR(CKD) >90 (>60 ml/min/1.73 sqM); Potassium 3.9 mmol/L (3.5-5.1); Sodium 140 mmol/L (137-145); Total Bilirubin 0.7 mg/dL (0.2-1.3); Total Protein 6.6 g/dL (6.3-8.2)
[2024-01-25 11:13] VITALS: BP 122/79; PULSE 75; RESP 20; TEMP 98.2
[2024-01-25] MEDS: LORazepam 1 MG TAB PO STA ×2 (11:32→11:34)
== END 2024-01-25 21:01 ==
LOC: EC 01:53
DX: R45.850 Homicidal ideations (principal); F29 Unspecified psychosis not due to a substance or known physiological condition; F17.200 Nicotine dependence, unspecified, uncomplicated
CPT/HCPCS: 36415; 80053; 80306; 82075; 85025; 87635; 99285

== ENCOUNTER → 2024-11-12 | Outpatient (CLI) | payer OTHER ==
[2024-11-12 15:55] LABS: Basophils # (A) 0.04 X 10*3/uL (0.00-0.10); Basophils % (A) 0.8 %; Eosinophils # (A) 0.22 X 10*3/uL (0.04-0.35); Eosinophils % (A) 4.4 %; HCT 46.6 % (39.6-50.0); Lymphocytes # (A) 1.28 X 10*3/uL (0.90-5.00); Lymphocytes % (A) 25.7 %; MCH 30.1 pg (27.0-32.0); MCHC 32.2 g/dL (32.0-37.0); MCV 93.6 FL (80.0-97.0); Mean Platelet Volume 10.6 FL (9.5-12.2); Monocytes # (A) 0.39 X 10*3/uL (0.20-1.00); Monocytes % (A) 7.8 %; NRBC Per 100 WBC 0 X 10*3/uL (0.00-0.01); Neutrophils # (A) 3.03 X 10*3/uL (1.80-7.70); Neutrophils % (A) 60.9 %; Platelet Count 306 X 10*3/uL (140-440); RBC 4.98 X 10*6/uL (4.40-5.60); RDW 14.1 % (11.5-14.5); WBC 4.98 X 10*3/uL (4.50-10.00)
[2024-11-12 15:58] LABS: Blood Urea Nitrogen 18.9 mg/dL (9.0-27.0); C Reactive Protein <0.30 mg/dL (0.00-0.80); Carbon Dioxide 24.9 mmol/L (21.6-31.8); Chloride 107 mmol/L (96-109); Chol/HDL Ratio 5.88 Ratio; Glucose 91 mg/dL (70-110); Potassium 4.4 mmol/L (3.5-5.5); Sodium 141 mmol/L (135-145)
[2024-11-12 15:59] LABS: ALT 50 U/L (10-49); AST 23 U/L (14-35); Albumin 4.5 g/dL (3.8-4.9); Albumin/Globulin Ratio 1.55 Ratio (1.60-3.17); Alkaline Phosphatase 79 U/L (41-126); Calcium 9.5 mg/dL (8.7-10.3); Globulin 2.9 g/dL (1.6-3.3); Total Bilirubin 0.3 mg/dL (0.3-1.2); Total Protein 7.4 g/dL (6.2-8.2)
[2024-11-12 16:35] LABS: Erythrocyte Sedimentation Rate 3 mm/Hr (0-15)
== END | disposition home or self-care (01) ==
LOC: LABWHC1 10:52
PROVIDERS: ATTEND Physician Assistant
DX: K51.011 Ulcerative (chronic) pancolitis with rectal bleeding (principal)
CPT/HCPCS: 36415; 80053; 80061; 85025; 85652; 86140; 86480

== ENCOUNTER 2025-02-08 19:37 | Emergency (ER) | payer OTHER ==
[2025-02-08 19:46] VITALS: TEMP 98.3
--- NOTE | 2025-02-08 20:34 | ED ---
Anxiety HPI - General Source: patient, EMS, RN notes reviewed Mode of arrival: EMS <PorfirioShellie - Last Filed: 02/08/25 23:19> - General Source: patient, EMS, RN notes reviewed, old records reviewed Mode of arrival: EMS - History of Present Illness MD Complaint: anxiety, heart racing Symptoms: palpitations Place: home Previous History of Same: Yes Severity: moderate Quality: constant Provoking factors: emotional stress, recent /illness of family member Improves With: nothing Worsens With: nothing Associated symptoms: palpitations <Nik Draper - Last Filed: 02/09/25 02:30> - General Chief Complaint: Anxiety Stated Complaint: Heat Exhaustion Time Seen by Provider: 02/08/25 20:31 - History of Present Illness Initial Comments: 49-year-old male presenting for multiple complaints. States his main concern is that he has been having a lot of racing thoughts lately feeling depressed and anxious. States his psych meds were recently adjusted. He also reports that hi s girlfriend Nathalie February 12, 2023 and he usually gets depression this time of year because of that. States he was sad tonight and drank a couple of mixed vodka drinks. States he could use some help and some good advice at this time. Denies suicidal or homicidal ideation. States he does have chronic ulcerative colitis and is very fatigued because he has been out in the heat all day, however his main concern is his mental health at this time. (Shellie Monroy) This 49-year-old male to the ER for evaluation, patient coming in for severe depression and anxiety, admits to alcohol use today (Nik Draper) - Related Data Home Medications: Home Medications Medication Instructions Recorded Confirmed Acetaminophen Tab [Tylenol Tab] 500 - 1,000 mg PO Q6H PRN MDD 8 01/25/24 01/25/24 TABLETS Albuterol Inhaler [Ventolin Hfa 2 puff INHALATION RT-Q6H PRN 01/25/24 01/25/24 Inhaler] Amoxic-Pot Clav 875-125Mg 1 tab PO BID 01/25/24 01/25/24 [Augmentin 875-125] Citalopram Hydrobromide [CeleXA] 20 mg PO DAILY 01/25/24 01/25/24 Tofacitinib Citrate [Xeljanz] 10 mg PO BID 01/25/24 01/25/24 Allergies/Adverse Reactions: Allergies Allergy/AdvReac Type Severity Reaction Status Date / Time No Known Allergies Allergy Verified 01/25/24 02:08 Review of Systems ROS Other: All systems not noted in ROS Statement are negative. <Shellie Monroy - Last Filed: 02/08/25 23:19> ROS Other: All systems not noted in ROS Statement are negative. <Nik Draper - Last Filed: 02/09/25 02:30> ROS Statement: Those systems with pertinent positive or pertinent negative responses have been documented in the HPI. Past Medical History Past Medical History: No Reported History Additional Past Medical History / Comment(s): Ulcerative colitis, anxiety, GI bleed History of Any Multi-Drug Resistant Organisms: C-DIFF, MRSA Date of last positivie culture/infection: 2015 MDRO Source:: leg wound Past Surgical History: No Surgical Hx Reported Past Anesthesia/Blood Transfusion Reactions: No Reported Reaction Past Psychological History: Anxiety Smoking Status: Current every day smoker Past Alcohol Use History: Occasional Past Drug Use History: Cocaine, Methamphetamine - Past Family History Mother Family Medical History: COPD, Diabetes Mellitus, Thyroid Disorder Additional Family Medical History / Comment(s): Schizophrenia Father History Unknown: Yes <Shellie Monroy - Last Filed: 02/08/25 23:19> General Exam General appearance: alert, in no apparent distress Head exam: Present: atraumatic, normocephalic, normal inspection Eye exam: Present: normal appearance, PERRL, EOMI. Absent: scleral icterus, conjunctival injection, periorbital swelling Respiratory exam: Present: normal lung sounds bilaterally. Absent: respiratory distress, wheezes, rales, rhonchi, stridor Cardiovascular Exam: Present: normal rhythm, tachycardia, normal heart sounds. Absent: systolic murmur, diastolic murmur, rubs, gallop, clicks GI/Abdominal exam: Present: soft, normal bowel sounds. Absent: distended, tenderness, guarding, rebound, rigid Neurological exam: Present: alert, oriented X3 Psychiatric exam: Present: normal mood, flat affect. Absent: homicidal ideation, suicidal ideation Skin exam: Present: warm, dry, intact, normal color. Absent: rash <MonroyShellie - Last Filed: 02/08/25 23:19> General appearance: alert, in no apparent distress Head exam: Present: atraumatic, normocephalic, normal inspection Eye exam: Present: normal appearance, PERRL, EOMI. Absent: scleral icterus, conjunctival injection, periorbital swelling ENT exam: Present: normal exam, mucous membranes moist Neck exam: Present: normal inspection. Absent: tenderness, meningismus, lymphadenopathy Respiratory exam: Present: normal lung sounds bilaterally. Absent: respiratory distress, wheezes, rales, rhonchi, stridor Cardiovascular Exam: Present: regular rate, normal rhythm, normal heart sounds. Absent: systolic murmur, diastolic murmur, rubs, gallop, clicks GI/Abdominal exam: Present: soft, normal bowel sounds. Absent: distended, tenderness, guarding, rebound, rigid Extremities exam: Present: normal inspection, full ROM, normal capillary refill. Absent: tenderness, pedal edema, joint swelling, calf tenderness Back exam: Present: normal inspection Neurological exam: Present: alert, oriented X3, CN II-XII intact Psychiatric exam: Present: normal affect, normal mood Skin exam: Present: warm, dry, intact, normal color. Absent: rash <Nik Draper - Last Filed: 02/09/25 02:30> Course <Nik Draper - Last Filed: 02/09/25 02:30> Vital Signs 02/08/25 19:40 Temperature 98.3 F Pulse Rate 123 H Respiratory 18 Rate Blood Pressure 144/97 O2 Sat by Pulse 96 Oximetry - Reevaluation(s) Reevaluation #1: 02/08/25 23:26 Medical records reviewed (Nik Draper) Reevaluation #2: 02/08/25 23:26 Medically cleared for psychiatric evaluation (Nik Draper) Reevaluation #3: Differential Mental Health Depression, anxiety, bipolar, psychosis, schizophrenia, borderline personality, situational depression, adjustment disorder, behavioral disorder, brain tumor, malingering, substance abuse, encephalopathy, medication reaction, dementia, hypothyroidism, degenerative neurologic disorder, lupus.... This is not meant to be all-inclusive list (Nik Draper) Medical Decision Making <Shellie Monroy - Last Filed: 02/08/25 23:19> <Nik Draper - Last Filed: 02/09/25 02:30> - Medical Decision Making Was pt. sent in by a medical professional or institution (, [facility], [facility], urgent care, hospital, or fpc...) When possible be specific @ -No Did you speak to anyone other than the patient for history (EMS, parent, family, police, friend...)? What history was obtained from this source @ -No Did you review nursing and triage notes (agree or disagree)? Why? @ -I reviewed and agree with nursing and triage notes Were old charts reviewed (outside hosp., previous admission, EMS record, old EKG, old radiological studies, urgent care reports/EKG's, fpc records)? Report findings @ -No old charts were reviewed Differential Diagnosis (chest pain, altered mental status, abdominal pain women, abdominal pain men, vaginal bleeding, weakness, fever, dyspnea, syncope, headache, dizziness, GI bleed, back pain, seizure, CVA, palpatations, mental health, musculoskeletal)? @ -Differential Mental Health Depression, anxiety, bipolar, psychosis, schizophrenia, borderline personality, situational depression, adjustment disorder, behavioral disorder, brain tumor, malingering, substance abuse, encephalopathy, medication reaction, dementia, hypothyroidism, degenerative neurologic disorder, lupus.... This is not meant to be all-inclusive list EKG interpreted by me (3pts min.). @ -As above X-rays interpreted by me (1pt min.). @ -None done CT interpreted by me (1pt min.). @ -None done U/S interpreted by me (1pt. min.). @ -None done What testing was considered but not performed or refused? (CT, X-rays, U/S, labs)? Why? @ -None What meds were considered but not given or refused? Why? @ -None Did you discuss the management of the patient with other professionals (professionals i.e. [facility], LADDERMAN, lab, RT, psych nurse, social service worker, parts counter representative, teacher, escrow officer, classification case manager)? Give summary @ -No Was smoking cessation discussed for >3mins.? @ -No Was critical care preformed (if so, how long)? @ -No Were there social determinants of health that impacted care today? How? (Ho melessness, low income, unemployed, alcoholism, drug addiction, transportation, low edu. Level, literacy, decrease access to med. care, half-way, rehab)? @ -No Was there de-escalation of care discussed even if they declined (Discuss DNR or withdrawal of care, Hospice)? DNR status @ -No What co-morbidities impacted this encounter? (DM, HTN, Smoking, COPD, CAD, Cancer, CVA, ARF, Chemo, Hep., AIDS, mental health diagnosis, sleep apnea, morbid obesity)? @ -None Was patient admitted / discharged? Hospital course, mention meds given and route, prescriptions, significant lab abnormalities, going to OR and other pertinent info. @ -49-year-old male presenting for mental health evaluation. Patient is tachycardic at 123 bpm. EKG reveals sinus tachycardia with no acute ST changes. BAT 0.00. Patient is medically cleared at this time to be seen by EPS. Case signed out to my ED attending Dr. Draper pending EPS evaluation and disposition. (Shellie Monroy) 45 male will transfer for inpatient psychiatric evaluation and treatment (Nik Draper) Disposition <Shellie Monroy - Last Filed: 02/08/25 23:19> <Nik Draper - Last Filed: 02/09/25 02:30> Clinical Impression: Psychosis, Alcohol intoxication, History of substance abuse, Major depressive disorder with psychotic features, Panic attack Disposition: TRANSFER TO PSYCH HOSP/UNIT Condition: Fair Instructions (If sedation given, give patient instructions): Generalized Anxiety Disorder (ED) Referrals: None,Stated [Primary Care Provider] - 1-2 days
[2025-02-09] MEDS: LORazepam 1 MG/0.5 ML VIAL IM STA (00:29)
[2025-02-09] MEDS: HALOPERIDOL LACTATE 5 MG/ML 1 ML VIAL IM STA (00:29)
[2025-02-09 02:51] LABS: Basophils # (A) 0.02 10*3/uL (0.00-0.10); Basophils % (A) 0.2 %; Eosinophils # (A) 0.06 10*3/uL (0.04-0.35); Eosinophils % (A) 0.6 %; HCT 41.3 % (39.6-50.0); HGB 14.2 g/dL (13.0-17.0); Lymphocytes # (A) 1.11 10*3/uL (0.90-5.00); Lymphocytes % (A) 11.8 %; MCH 30.1 pg (27.0-32.0); MCHC 34.4 g/dL (32.0-37.0); MCV 87.7 fL (80.0-97.0); Monocytes # (A) 0.96 10*3/uL (0.20-1.00); Monocytes % (A) 10.2 %; Neutrophils # (A) 7.25 10*3/uL (1.80-7.70); Neutrophils % (A) 76.9 %; Platelet Count 234 10*3/uL (140-440); RBC 4.71 10*6/uL (4.40-5.60); RDW 14.6 % (11.5-14.5); WBC 9.43 10*3/uL (4.50-10.00)
[2025-02-09 03:10] LABS: ALT 45 U/L (4-49); AST 46 U/L (17-59); African American GFR (CKD) >90 (>60 ml/min/1.73 sqM); Albumin 4.1 g/dL (3.5-5.0); Alkaline Phosphatase 70 U/L (38-126); Anion Gap 10 mmol/L; Blood Urea Nitrogen 18 mg/dL (9-20); Calcium 9.0 mg/dL (8.4-10.2); Carbon Dioxide 26 mmol/L (22-30); Chloride 101 mmol/L (98-107); Glucose 100 mg/dL (74-99); Non-African American GFR(CKD) >90 (>60 ml/min/1.73 sqM); Potassium 3.6 mmol/L (3.5-5.1); Sodium 137 mmol/L (137-145); Total Protein 6.7 g/dL (6.3-8.2)
[2025-02-09 07:35] VITALS: RESP 18
[2025-02-09 14:17] VITALS: BP 110/70; PULSE 95
== END 2025-02-09 19:05 ==
LOC: EC 19:37
DX: F33.3 Major depressive disorder, recurrent, severe with psychotic symptoms (principal); F10.129 Alcohol abuse with intoxication, unspecified; F17.200 Nicotine dependence, unspecified, uncomplicated; F41.0 Panic disorder [episodic paroxysmal anxiety]; Z11.52 Encounter for screening for COVID-19; Y90.9 Presence of alcohol in blood, level not specified
CPT/HCPCS: 99285; 96372 ×2; 82075; 99284; 36415; 93005; 80053; 85025; 87635; J2060; J1630